=== PATIENT | male | born 1950 | race Caucasian/White ===

== ENCOUNTER 2016-06-07 19:08 | Emergency (ER) | payer OTHER, MEDICARE ==
[~2016-06-07 19:08] MED LIST: ADVAIR DISKUS 21 DSK INH; ALBUTEROL0.09 MG/A1 INH; AMARYL 2 MG2 MG PO; AMBIEN (MONOGRAP5 MG; AMBIEN10 M1 PO; ATIVAN1 M1 PO; ATIVAN1 MG PO; CIPRO 500MG TA500 MG PO; ENDOCET 7.5-321 EACH PO; FLEXERIL 5MG TAB5 MG PO; FLOMAX(MONOGRA0.4 MG PO; FLUOXETINE HYDR20 MG PO; FOLIC ACID 1 MG PO; FOLIC ACID1 M1 PO; GLIPIZIDE5 MG PO; GLUCOPHAGE1000 MG; JANUVIA 100MG100 MG PO; JARDIANCE10 MG PO; LEVEMIR 10100 UNITS/ SC; LIDODERM 5% PAT1 PAT EXT; LISINOPRIL10 MG PO; LISINOPRIL20 M1 PO; LISINOPRIL20 MG PO; MAGNESIUM250 M1 PO; METFORMIN HCL1000 M1 PO; METFORMIN HCL500 MG PO; NOVOLOG100 U/ML SC; ONE DAILY MULT1 EAC2 PO; PRILOSEC 20MG C20 MG PO; PROAIR HFA0.09 MG/Ac INH; SYMBICORT 80/4.1 PUF INH; Theragran Vitamins PO; VITAB121000 PO; VITAMIN B-1100 MG PO; VITAMIN B1100 MG PO; VITAMIN D1000 IU PO; ZOLPIDEM TART10 MG PO
--- NOTE | 2016-06-07 19:45 | ED MVC/FALL/TRAUMA COMPLAINT ---
History of Present Illness General Chief Complaint: Fall Stated Complaint: BIBA WITH A FALL, Source: patient, old records Exam Limitations: dementia Vital Signs & Intake/Output Vital Signs & Intake/Output Vital Signs Date Time Temp Pulse Resp B/P Pulse O2 O2 Flow FiO2 Ox Delivery Rate 06/08 0604 98.2 97 18 145/85 97 Room Air 06/07 2202 97.6 82 18 118/67 100 Room Air Room Air 06/07 1931 97.6 88 18 126/72 100 Room Air Room Air Allergies Coded Allergies: NO KNOWN ALLERGIES (10/30/15) Reconcile Medications Albuterol Sulfate (Proair Hfa) 0.09 MG/Actuation MEHUL 2 PUFF INH PRN ASTHMA ( Reported) FLUTICASONE/SALMETEROL (Advair 250-50 Diskus) 1 DSK DSK 2 PUFF INH QAM ASTHMA (Reported) Folic Acid 1 MG TABLET 1 TAB PO DAILY MULTIVITAMIN Insulin Aspart, Recombinant (Novolog) 100 U/ML KAREN 0 UNITS SC TIDAC/HS DIABETES BEFORE MEALS <80 MG/DL NO UNITS 80-100 MG/DL 5 UNITS 101-120 MG/DL 5 UNITS 121-150 MG/DL 5 UNITS 151-200 MG/DL 6 UNITS 201-250 MG/DL 7 UNITS 251-300 MG/DL 8 UNITS 301-350 MG/DL 10 UNITS 351-400 MG/DL 12 UNITS >400 MG/DL 14 UNITS AND CALL MD BED TIME SLIDING SCALE 251-300 MG/DL 1 UNIT 301-350 MG/DL 2 UNITS 351-400 MG/DL 3 UNITS >400 MG/DL 4 UNITS Insulin Detemir (Levemir) 100 UNITS/ML KAREN 14 UNITS SC AT BEDTIME DIABETES Lisinopril 20 MG TABLET 1 TAB PO DAILY BP (Reported) Lorazepam (Ativan) 1 MG TABLET 1 TAB PO BID ANXIETY (Reported) Multivitamin (One Daily Multivitamin) 1 EACH TABLET 1 TAB PO DAILY MULTIVITAMIN Thiamine HCl (Vitamin B-1) 100 MG TABLET 1 TAB PO DAILY MULTIVITAMIN Zolpidem Tartrate (Ambien) 10 MG TABLET 1 TAB PO QPMP Sleep (Reported) Triage Note: 66 YEAR OLD MALE BIBA S/P FALL. PER EMS FALL WAS UNWITNESSED, PT WAS FOUND IN SHOWER BY ANOTHER RESIDENT. AT TIME PT WAS FOUND PT WAS ALERT BUT TOO WEAK TO GET UP. PT ADMITS TO 2 SHOTS OF ?COORS. HEMATOMA WITH DRIED BLOOD NOTED TO BACK OF HEAD. PT SLOW TO REPSOND TO QUESTIONS AND ALSO REPORTS HE HAS EARLY DEMENTIA. Triage Nurses Notes Reviewed? yes HPI: 66-YEAR-OLD MALE BROUGHT IN BY AMBULANCE FROM LOCAL [facility] where he resides. He has history of dementia and alcohol abuse and was found the bathroom on the floor after falling and striking his head. He is unsure whether he had loss of consciousness and unsure why he fell. He admits to drinking several beers today. He has mild pain to the posterior aspect of the scalp where he has a laceration and small amount of dried blood to the area. He has no other complaints of pain or injury, denies any chest pain or shortness of breath, he denies any palpitations or dizziness or feeling lightheaded. There is no treatment thus far no modifying factors. (DOMINIQUE BLANCO) Past History Travel History Traveled to [place] past 21 day No Medical History Any Pertinent Medical History? see below for history Neurological: ALCOHOL WITHDRAWAL SEIZUR EENT: NONE Cardiovascular: hypertension Respiratory: asthma Gastrointestinal: pancreatitis Hepatic: NONE Renal: NONE Musculoskeletal: NONE Psychiatric: alcohol dependence, anxiety, depression Endocrine: DM Blood Disorders: NONE Cancer(s): NONE DEVELOPMENT PLANNER/Reproductive: NONE History of MRSA: No History of VRE: No History of CDIFF: No Tetanus Vaccine: 02/04/05 Surgical History Surgical History: Tonsillectomy Psychosocial History Who do you live with Other (see notes) Services at Home None What is your primary language Persian Tobacco Use: Refused to answer Family History Family History, If Any: FATHER, , Age 60+; Cause: Myocardial infarct. FH: diabetes mellitus BROTHER FH: CAD (coronary artery disease) Hx Contributory? No (DOMINIQUE BLANCO) Review of Systems Review of Systems Constitutional: Reports: see HPI. Eyes: Reports: no symptoms. Ears, Nose, Throat, Mouth: Reports: no symptoms. Respiratory: Reports: no symptoms. Cardiovascular: Reports: no symptoms. Gastrointestinal/Abdominal: Reports: no symptoms. Genitourinary: Reports: no symptoms. Musculoskeletal: Reports: no symptoms. Skin: Reports: no symptoms. Neurological/Psychological: Reports: see HPI. All Other Systems: Reviewed and Negative (DOMINIQUE BLANCO) Physical Exam Physical Exam General Appearance: well developed/nourished, appears intoxicated, slurring words Comments: Well-developed well-nourished person in no acute distress HEENT: Small hematoma noted to the posterior scalp, 2.5 cm superficial laceration noted to the posterior scalp, transverse, no active bleeding, small amount of dry blood noted in the area. Mild tenderness. Normal EENT exam, extraocular motion intact, no nystagmus. Pupils equally round and reactive to light. Nose is atraumatic. External auditory canal and Tympanic membranes clear. Pharynx normal. No swelling or edema. Neck: Supple, no lymphadenopathy, normal range of motion without pain or tenderness Back: Nontender, no CVA tenderness. Full range of motion Cardiovascular: Regular rate and rhythms no murmurs, normal JVP Respiratory: Chest nontender. No respiratory distress. Breath sounds clear to auscultation bilaterally Abdomen: Soft, nontender nondistended, no appreciable organomegaly. Normal bowel sounds. No ascites Extremity: No edema, no calf tenderness to palpation, normal and equal pulses. Neuro: Alert oriented x3, motor sensory normal, cranial nerves II through XII grossly intact. Skin: No appreciable rash on exposed skin, skin is warm and dry. Psych: Mood and affect is normal, memory and judgment is normal. Core Measures ACS in differential dx? No Severe Sepsis Present: No Septic Shock Present: No (JOE MALIN,DOMINIQUE) Progress Differential Diagnosis: aoritic dissection, abd injury, C/T/L spine injury, ext injury, ICH, pelvis injury, pnemothorax, spinal cord injury Plan of Care: Orders Procedure Date/time Status Telemetry/Military Personnel Specialist 06/07 1937 Active MAGNESIUM 06/07 1937 Complete ETHANOL 06/07 1937 Complete COMPREHENSIVE METABOLIC PANEL 06/07 1937 Complete CBC WITHOUT DIFFERENTIAL 06/07 1937 Complete EKG 06/07 1937 Active Laboratory Tests 06/07/16 2017: Anion Gap 17 H, Estimated GFR 36 L, BUN/Creatinine Ratio 8.4, Glucose 82, Calcium 9.1, Magnesium 1.9, Total Bilirubin 0.7, AST 29, ALT 35, Alkaline Phosphatase 46, Total Protein 7.1, Albumin 4.1, Globulin 3.0, Albumin/Globulin Ratio 1.4, CBC w Diff NO MAN DIFF REQ, RBC 4.17 L, MCV 98.6 H, MCH 33.4 H, RDW 14.7 H, MPV 7.1 L, Gran % 66.9, Lymphocytes % 20.5, Monocytes % 9.8 H, Eosinophils % 2.3, Basophils % 0.5, Absolute Granulocytes 4.4, Absolute Lymphocytes 1.4, Absolute Monocytes 0.6, Absolute Eosinophils 0.1, Absolute Basophils 0, PUBS MCHC 33.9, Serum Alcohol 317.0 Diagnostic Imaging: Viewed by Me: CT Scan. Discussed w/RAD: CT Scan. Radiology Impression: PATIENT: LEVI ULLOA PRESENT AGE : 66 PATIENT ACCOUNT NO: [id number] : 50 LOCATION: [facility] ORDERING PHYSICIAN: DOMINIQUE MALIN SERVICE DATE: 06/07/16 EXAM TYPE: CAT - CT HEAD WO IV CONTRAST EXAMINATION: CT HEAD WITHOUT CONTRAST CLINICAL INFORMATION: Fall. Head injury. COMPARISON: Head CT from 10/30/2015. TECHNIQUE: Contiguous axial imaging was performed from the skull base to vertex without intravenous administration of contrast. DLP: 601 mGy-cm. FINDINGS: There is no evidence of acute intracranial hemorrhage or territorial infarction. No abnormal mass effect or midline shift is seen. Sánchez to white matter differentiation is well preserved. No extra-axial fluid collections are identified. There is mild generalized prominence of the ventricles, sulci, and extra-axial spaces and mild hypoattenuation in the bihemispheric white matter. There is stable encephalomalacia in the anterior temporal lobe on the left. No fracture or acute osseous abnormality. The imaged paranasal sinuses are clear. The mastoid air cells and middle ear cavities are clear. The temporomandibular joints articulate normally. There is mild soft tissue thickening in the left frontal scalp near the vertex. The orbits are unremarkable. IMPRESSION: No acute intracranial pathology. DICTATED BY: THAI RUIZ MD DATE/TIME DICTATED:06/07/162043 MEAT SPECIALIST:CONTRERAS DATE/TIME TRANSCRIBED:06/07/162043 Initial ED EKG: NSR, rate (90), no ST T wave changes Prior EKG: unchanged Rhythm Strip: normal sinus rhythm Hand-Off Endorsed To: CHELSEY ERWIN MD Endorsed Time: 2300 Pending: other (sober) Comments: Posterior scalp laceration repair, wound was cleansed and irrigated, 3 karen were applied to the transverse laceration of the posterior scalp. Patient tolerated well without complications. Bacitracin was applied. Patient's head CT is negative, he is intoxicated with alcohol level of 317. He lives at the and does not have anyone to care for him, he will need to be monitored here overnight until he is sober in the morning. He is an unsafe discharge (DOMINIQUE BLANCO) Comments: 06/07/2016 10:49:38 PM Patient signed out to me by PA at shift exchange operator. 06/08/2016 6:27:30 AM patient's speech is clear and his gait is stable. (YAIMA FARIA,CHELSEY Hinds) Departure Departure Disposition: HOME OR SELF CARE Condition: Stable Clinical Impression Primary Impression: Alcohol intoxication Qualifiers: Complication of substance-induced condition: uncomplicated Qualified Code: F10.120 - Alcohol abuse with intoxication, uncomplicated Secondary Impressions: Fall Qualifiers: Encounter type: initial encounter Qualified Code: W19.XXXA - Unspecified fall, initial encounter Laceration of scalp Qualifiers: Encounter type: initial encounter Qualified Code: S01.01XA - Laceration without foreign body of scalp, initial encounter Referrals: NURY CARREON (PCP/Family) Additional Instructions: Return to the ER in 7 days for staple removal. Departure Forms: Customer Survey General Discharge Information (DOMINIQUE BLANCO) PA/HOSE STRIPPER Co-Sign Statement Statement: ED Attending supervision documentation- [x] I saw and evaluated the patient. I have also reviewed all the pertinent lab results and diagnostic results. I agree with the findings and the plan of care as documented in the PA's/HOSE STRIPPER's documentation. [] I have reviewed the ED Record and agree with the PA's/HOSE STRIPPER's documentation. [] Additions or exceptions (if any) to the PAs/HOSE STRIPPER's note and plan are summarized below: [] (YAIMA FARIA,CHELSEY Hinds)
[2016-06-07 20:26] LABS: ABSOLUTE BASOPHIL COUNT 0 /CUMM (0.0-0.2); ABSOLUTE EOSINOPHIL COUNT 0.1 /CUMM (0.0-0.7); ABSOLUTE GRANULOCYTE CT 4.4 /CUMM (1.4-6.5); ABSOLUTE LYMPH COUNT 1.4 /CUMM (1.2-3.4); ABSOLUTE MONOCYTE COUNT 0.6 /CUMM (0.10-0.60); BASOPHIL % 0.5 % (0.0-2.0); EOSINOPHIL % 2.3 % (0-5); GRANULOCYTE % 66.9 % (42.2-75.2); HEMATOCRIT 41.1 % (42-52); MEAN CORPUSCULAR HGB 33.4 PG (27.0-31.0); MEAN CORPUSCULAR HGB CONC 33.9 G/DL (33.0-37.0); MEAN CORPUSCULAR VOLUME 98.6 FL (80.0-94.0); MEAN PLATELET VOLUME 7.1 FL (7.4-10.4); PLATELET COUNT 273 /CUMM (130-400); RBC DISTRIBUTION WIDTH 14.7 % (11.5-14.5); RED BLOOD CELL CT 4.17 /CUMM (4.70-6.10); WHITE BLOOD CELL COUNT 6.6 /CUMM (4.8-10.8)
--- NOTE | 2016-06-07 20:51 | CT SCAN REPORT ---
EXAMINATION: CT HEAD WITHOUT CONTRAST CLINICAL INFORMATION: Fall. Head injury. COMPARISON: Head CT from 10/30/2015. TECHNIQUE: Contiguous axial imaging was performed from the skull base to vertex without intravenous administration of contrast. DLP: 601 mGy-cm. FINDINGS: There is no evidence of acute intracranial hemorrhage or territorial infarction. No abnormal mass effect or midline shift is seen. Sánchez to white matter differentiation is well preserved. No extra-axial fluid collections are identified. There is mild generalized prominence of the ventricles, sulci, and extra-axial spaces and mild hypoattenuation in the bihemispheric white matter. There is stable encephalomalacia in the anterior temporal lobe on the left. No fracture or acute osseous abnormality. The imaged paranasal sinuses are clear. The mastoid air cells and middle ear cavities are clear. The temporomandibular joints articulate normally. There is mild soft tissue thickening in the left frontal scalp near the vertex. The orbits are unremarkable. IMPRESSION: No acute intracranial pathology.
[2016-06-08 06:04] VITALS: BP 145/85
== END 2016-06-08 06:37 ==
LOC: ERH 19:08
PROVIDERS: Physician Assistant Surgical
DX: S01.01XA Laceration without foreign body of scalp, initial encounter (principal); F10.129 Alcohol abuse with intoxication, unspecified; W19.XXXA Unspecified fall, initial encounter
CPT/HCPCS: 93005; 93010; 96372; G0480

== ENCOUNTER 2016-06-15 17:12 | Emergency (ER) | payer OTHER, MEDICARE ==
[~2016-06-15] VITALS: Ht 175.3 cm; Wt 77.1 kg
--- NOTE | 2016-06-15 17:55 | ED PSYCHIATRIC COMPLAINT ---
History of Present Illness General Chief Complaint: ETOH/Drug Related Complaint Stated Complaint: +ETOH, FOUND WALKING/VOMITING ON MAIN ST Source: patient, EMS Exam Limitations: intoxication Vital Signs & Intake/Output Vital Signs & Intake/Output Vital Signs Date Time Temp Pulse Resp B/P Pulse O2 O2 Flow FiO2 Ox Delivery Rate 06/15 1812 Room Air Room Air 06/15 1719 97.0 92 20 127/72 96 Room Air Allergies Coded Allergies: NO KNOWN ALLERGIES (06/15/16) Reconcile Medications Albuterol Sulfate (Proair Hfa) 0.09 MG/Actuation MEHUL 2 PUFF INH PRN ASTHMA ( Reported) FLUTICASONE/SALMETEROL (Advair 250-50 Diskus) 1 DSK DSK 2 PUFF INH QAM ASTHMA (Reported) Folic Acid 1 MG TABLET 1 TAB PO DAILY MULTIVITAMIN Insulin Aspart, Recombinant (Novolog) 100 U/ML KAREN 0 UNITS SC TIDAC/HS DIABETES BEFORE MEALS <80 MG/DL NO UNITS 80-100 MG/DL 5 UNITS 101-120 MG/DL 5 UNITS 121-150 MG/DL 5 UNITS 151-200 MG/DL 6 UNITS 201-250 MG/DL 7 UNITS 251-300 MG/DL 8 UNITS 301-350 MG/DL 10 UNITS 351-400 MG/DL 12 UNITS >400 MG/DL 14 UNITS AND CALL MD BED TIME SLIDING SCALE 251-300 MG/DL 1 UNIT 301-350 MG/DL 2 UNITS 351-400 MG/DL 3 UNITS >400 MG/DL 4 UNITS Insulin Detemir (Levemir) 100 UNITS/ML KAREN 14 UNITS SC AT BEDTIME DIABETES Lisinopril 20 MG TABLET 1 TAB PO DAILY BP (Reported) Lorazepam (Ativan) 1 MG TABLET 1 TAB PO BID ANXIETY (Reported) Multivitamin (One Daily Multivitamin) 1 EACH TABLET 1 TAB PO DAILY MULTIVITAMIN Thiamine HCl (Vitamin B-1) 100 MG TABLET 1 TAB PO DAILY MULTIVITAMIN Zolpidem Tartrate (Ambien) 10 MG TABLET 1 TAB PO QPMP Sleep (Reported) Triage Note: PT BIBA TO ER RM 14 C/C FOUND VOMITING ON MAIN [address] [place] WITH ETOH AND STAGGERING GAIT. PT ADMITS TO 1/2 PINT OF SCOTCH TODAY BUT DENIES BEING INTOXICATED, STATING "I'M NOT DRUNK". PT DENIES FEELING NAUSEAS AT PRESENT, DENIES ANY PAIN. DENIES SI/HI. PT CHANGED INTO HOSPITAL GOWN BY SECURITY AND SITTER STAFF. HAS 2 PERSONAL BELONGINGS BAGS PLACED IN BH CLOSET (SOME CLOTHING HAS VOMITUS), VALUABLES ENVELOPE X 1 AND PHARMACY BAG X 1 PLACED IN SAFE. Triage Nurses Notes Reviewed? yes Onset: Abrupt Duration: minute(s): (FEW) Timing: single episode today Severity: moderate HPI: 66 year old male with history of alcohol abuse presents via EMS after being found intoxicated and vomiting on the street. He reports he was drinking today, 6 beers adn a few shots. He states he does not know why he is here. No thoughts of harming himself of anyone else. He states he was just trying to get a haircut today. Past History Travel History Traveled to [place] past 21 day No Medical History Any Pertinent Medical History? see below for history Neurological: ALCOHOL WITHDRAWAL SEIZUR *06/15/16- PT DENIES HX OF ETOH W/ SEIZURES* EENT: NONE Cardiovascular: hypertension Respiratory: asthma Gastrointestinal: pancreatitis Hepatic: NONE Renal: NONE Musculoskeletal: NONE Psychiatric: alcohol dependence, anxiety, depression Endocrine: DM Blood Disorders: NONE Cancer(s): NONE PEDIATRIC DENTAL ASSISTANT/Reproductive: NONE History of MRSA: No History of VRE: No History of CDIFF: No Tetanus Vaccine: 02/04/05 Surgical History Surgical History: Tonsillectomy Psychosocial History Who do you live with Other (see notes) Services at Home None What is your primary language Sami Tobacco Use: Never used ETOH Use: alcoholic Illicit Drug Use: denies illicit drug use Family History Family History, If Any: FATHER, , Age 60+; Cause: Myocardial infarct. FH: diabetes mellitus BROTHER FH: CAD (coronary artery disease) Hx Contributory? No Review of Systems Review of Systems Constitutional: Denies: fever. EENTM: Reports: no symptoms. Respiratory: Denies: cough. Cardiovascular: Denies: chest pain. GI: Reports: nausea, vomiting. Denies: abdominal pain. Genitourinary: Reports: no symptoms. Musculoskeletal: Reports: no symptoms. Skin: Reports: no symptoms. Neurological/Psychological: Reports: no symptoms. Hematologic/Endocrine: Denies: bruising, bleeding. Immunologic/Allergic: Denies: splenectomy. All Other Systems: Reviewed and Negative Physical Exam Physical Exam General Appearance: well developed/nourished, mild distress Head: atraumatic Eyes: Bilateral: PERRL, EOMI. Ears, Nose, Throat: normal pharynx, normal ENT inspection, hearing grossly normal Neck: normal inspection, supple Respiratory: normal breath sounds Cardiovascular: regular rate/rhythm Gastrointestinal: soft, non-tender Extremities: normal range of motion Neurological/Psychiatric: no motor/sensory deficits, awake, alert, intoxicated Appearance/Memory/Insight: disheveled, impaired insight Behavoir/Eye Contact/Speech: cooperative, decreased rate of speech Thoughts/Hallucinations: no apparent hallucination Skin: intact, normal color, warm/dry SAD PERSONS Done? patient not suicidal Progress Differential Diagnosis: drug intoxication, ALCHOL INTOXICATION Plan of Care: Orders Procedure Date/time Status FingerStick- Glucose 06/15 1904 Active URINE DRUGS OF ABUSE 06/15 1802 Complete Laboratory Tests 06/15/16 1917: Urine Opiates Screen < 100.00, Methadone Screen < 40, Barbiturate Screen < 60, Ur Phencyclidine Scrn < 6.00, Amphetamines Screen < 100, U Benzodiazepines Scrn < 85, Urine Cocaine Screen < 50, Urine Cannabis Screen < 5.00 URINE TOXICOLOGY ORDERED, FINGERSTICK ORDERED. (LUZMARIA FARIA,MACK) Departure Departure Time of Disposition: 2014 Disposition: HOME OR SELF CARE Condition: Stable Clinical Impression Primary Impression: Alcohol intoxication Referrals: NURY CARREON (PCP/Family) Additional Instructions: FOLLOW-UP with the outpatient list of detox facilities. Departure Forms: Customer Survey General Discharge Information
[2016-06-15 20:35] VITALS: BP 154/97
== END 2016-06-15 20:37 ==
LOC: ERH 17:12
DX: F10.129 Alcohol abuse with intoxication, unspecified (principal); E11.9 Type 2 diabetes mellitus without complications; Z79.4 Long term (current) use of insulin
CPT/HCPCS: 80307

== ENCOUNTER 2017-07-13 06:28 | Inpatient (IN) | payer OTHER, MEDICARE ==
[2017-07-13] VITALS (7 sets, daily range): BP systolic 130–166; BP diastolic 74–100
[~2017-07-13] VITALS: Ht 175.3 cm; Wt 82.1 kg
[~2017-07-13 06:28] MED LIST changes: +ASPIRIN81 M4 PO; +ATIVAN0.5 M1 PO; +ATORVASTATIN CA80 M1 PO; +LEVEMIR FL100 UNIT/1 SC; +MELATONIN3 M4 PO; +MOBIC15 M1 PO; +NOVOLOG FL100 UNIT/1 SC; -PROAIR HFA0.09 MG/Ac INH; +PROAIR HFA8.5 GM INH; +VITAMIN B-121000 MC3 PO
[2017-07-13 07:11] LABS: ABSOLUTE BASOPHIL COUNT 0 /CUMM (0.0-0.2); ABSOLUTE EOSINOPHIL COUNT 0.2 /CUMM (0.0-0.7); ABSOLUTE GRANULOCYTE CT 3.3 /CUMM (1.4-6.5); ABSOLUTE LYMPH COUNT 1.1 /CUMM (1.2-3.4); ABSOLUTE MONOCYTE COUNT 0.7 /CUMM (0.10-0.60); BASOPHIL % 0.6 % (0.0-2.0); EOSINOPHIL % 4.2 % (0-5); GRANULOCYTE % 61.5 % (42.2-75.2); MEAN CORPUSCULAR HGB 31.4 PG (27.0-31.0); MEAN CORPUSCULAR VOLUME 92.5 FL (80.0-94.0); MEAN PLATELET VOLUME 8.4 FL (7.4-10.4); PLATELET COUNT 237 /CUMM (130-400); RBC DISTRIBUTION WIDTH 16.1 % (11.5-14.5); RED BLOOD CELL CT 3.68 /CUMM (4.70-6.10); WHITE BLOOD CELL COUNT 5.4 /CUMM (4.8-10.8)
--- NOTE | 2017-07-13 07:45 | ED AMS/SEIZURE/WEAK/DIZZY ---
History of Present Illness General Chief Complaint: Altered Mental Status Stated Complaint: BIBA, AMS Source: patient, old records Exam Limitations: no limitations, intoxication Vital Signs & Intake/Output Vital Signs & Intake/Output Vital Signs Date Time Temp Pulse Resp B/P B/P Pulse O2 O2 Flow FiO2 Mean Ox Delivery Rate 07/15 0630 98.0 85 20 142/82 94 07/14 2208 98.5 101 18 140/80 96 Room Air 07/14 1438 97.8 100 20 150/75 95 Room Air ED Intake and Output 07/15 0000 07/14 1200 Intake Total 2270 390 Output Total 1250 350 Balance 1020 40 Intake, IV 100 150 Intake, Oral 2170 240 Number 0 Bowel Movements Output, Urine 1250 350 Allergies Coded Allergies: NO KNOWN ALLERGIES (06/15/16) Triage Note: TRIAGE: BIBA FROM [facility] IN [place], DETOXED FROM ETOH (W/ HX SEIZURES) 9 WEEKS AGO, THOUGH DENIES CURRENT OR RECENT ETOH USE, FOUND SITTING ON STEPS W/ NO PANTS ON AND INTERMITTENT CONFUSION. PER EMS, PATIENT "DIDN'T KNOW HOW HE GOT TO THE STAIRS AND WHERE HIS PANTS WENT." PATIENT ALERT AND ORIENTED AT THIS TIME THOUGH ASKS SAME QUESTIONS REPEATADLY. PATIENT UNSURE WHY HE IS HERE. DENIES COMPLAINTS. Triage Nurses Notes Reviewed? yes Unable To Obtain Hx Due To: patient confusion Onset: Evening Duration: hour(s): HPI: 67yoM w/ hx of HTN, asthma, alcohol abuse and intoxication w/ frequent visits to the ER here w/ another episode of alcohol intoxication. Patient was found on the steps of the [facility], where he resides, with his pants down and altered and was sent here to the ED for evaluation. Patient has no recollection of the incident. He reports sleeping in the comfort of his room and was picked up by the EMT with the goal of having some blood tests done. Denies any EtOH in the past 10mths. He also denies any recreational drug use. He was just discharged from alcohol detox 9mths ago. He has history of alcohol withdrawal seizures. Unclear if he has DTs. 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 (Opare-Gail STUDENT,Eric) Reconcile Medications Albuterol Sulfate (Proair Hfa) 90 MCG HFA.AER.AD 2 PUF INH Q4-6 PRN PRN wheezing Colchicine 0.6 MG TABLET 1 TAB PO DAILY GOUT (Reported) Docusate Sodium (Colace) 100 MG CAPSULE 1 CAP PO BID CONSTIPATION (Reported) Insulin Aspart, Recombinant (Novolog Flexpen) 100 UNIT/ML INSULN.PEN 5 UNITS SC TIDAC DIABETES (Reported) Insulin Detemir (Levemir Flextouch) 100 UNIT/ML (3 ML) INSULN.PEN 14 UNIT SC QPM DIABETES (Reported) LORazepam (Ativan) 1 MG TAB 1 TAB PO BID anxiety (Reported) Sennosides (Senna) 8.6 MG TABLET 2 TAB PO DAILY PRN CONSTIPATION (Reported) Trazodone HCl 100 MG TABLET 1 TAB PO QPM SLEEP (Reported) Zolpidem Tartrate (Ambien) 10 MG TABLET 1 TAB PO QPMP sleep (Reported) (Charisma FARAI,Emory Sutton) Past History Travel History Traveled to [place] past 21 day No Medical History Any Pertinent Medical History? 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 FH: diabetes mellitus BROTHER FH: CAD (coronary artery disease) Hx Contributory? No (Opare-Gail STUDENT,Eric) Review of Systems Review of Systems Constitutional: Reports: no symptoms, see HPI. EENTM: Reports: no symptoms. Denies: double vision, eye pain, ear discharge, hearing changes. Respiratory: Denies: cough, wheezing. Cardiovascular: Denies: chest pain, edema, orthopena, syncope. GI: Denies: constipation, diarrhea. Genitourinary: Reports: no symptoms. Musculoskeletal: Denies: back pain. Skin: Reports: lesions (ecchymosis). Neurological/Psychological: Denies: anxiety, confusion, emotional problems. Hematologic/Endocrine: Reports: no symptoms. (Opare-Gail STUDENT,Eric) Physical Exam Physical Exam General Appearance: well developed/nourished, awake, comfortable Head: atraumatic Eyes: Bilateral: PERRL. Neck: normal inspection, supple Respiratory: normal breath sounds Cardiovascular: regular rate/rhythm Peripheral Pulses: 3+ radial (R), 3+ radial (L) Gastrointestinal: normal bowel sounds Rectal: deferred Extremities: normal range of motion Neurologic/Psych: awake, oriented x 3 (not aware he was in hospital) Bay Coma Score Bay Coma Score Response Value Best Eye Response (Bay): open spontaneously 4 Best Verbal Response: oriented 5 Best Motor Response: obeys commands 6 Total 15 Core Measures ACS in differential dx? No CVA/TIA Diagnosis No Sepsis Present: No Sepsis Focused Exam Completed? No (Opare-Gail STUDENT,Eric) Progress Differential Diagnosis: alcohol intoxication, CVA/stroke, dehydration, drug intoxication, seizure disorder Plan of Care: Orders Procedure Date/time Status BASIC ELECTROLYTES PLUS BUN&CR 07/15 0600 Complete Current Medications Sig/Michael Start time Last Medication Dose Stop Time Status Admin Colchicine 600 MCG DAILY 07/15 1000 AC 07/15 (Colchicine 600MCG 1005 Tab) Folic Acid 1 MG DAILY 07/15 1000 AC (Folic Acid) Trazodone HCl 100 MG QPM 07/14 2200 AC 07/14 (Desyrel) 2121 Thiamine HCl 250 MG DAILY 07/14 1000 AC 07/14 (Vitamin B-1) 07/18 1029 1035 Sodium Chloride 100 ML (Normal Saline 0.9%) Insulin Aspart 0 TIDAC 07/14 0800 AC 07/15 (NovoLOG) 0824 Heparin Sodium 5,000 UNIT Q8 07/13 2200 AC 07/15 (Porcine) 0521 Insulin Detemir 7 UNITS 2200 07/13 2200 AC 07/14 (Levemir) 2123 Melatonin 5 MG AT BEDTIME 07/13 2200 AC 07/14 (Melatonin) 2121 Calcium Carbonate 500 MG DAILY 07/14 2051 AC 07/15 (TUMS) 1006 Albuterol Sulfate 2 PUF Q4 PRN 03/1944 AC 07/15 (Ventolin) 0520 Acetaminophen 650 MG Q6P PRN 07/13 1929 AC 07/15 (Tylenol) 1007 Acetaminophen 1,000 MG Q6P PRN 07/13 1929 AC (Ofirmev) Morphine Sulfate 1 MG Q4P PRN 07/13 1929 AC (MORPHINE SULFATE) Laboratory Tests 07/15/17 0635: Anion Gap 12, Estimated GFR 43 L, BUN/Creatinine Ratio 15.6 Patient without any complaints currently. Cr elevation is chronic at his baseline. EtOH level of 83. However, he is no following directions or showing any recollection of events. It will not be safe to discharge him at this point. Will get case management involved in his disposition. Initial ED EKG: none (Eric Mercado) Comments: 07/13/2017 8:00:55 AM patient's evaluation reveals low-grade intoxication, he shows poor insight into his current emergency department visit. In addition shows poor recall of recent events and his answers to questions often confusing and somewhat tangential. I do not feel this patient is safe for discharge at this time. He appears to have no means back to the [facility]. I have ordered a case management consultation for disposition. 07/13/2017 12:20:18 PM patient has been evaluated for competence. At this point the patient seems incompetent to make medical decisions and the care clinician has recommended additional testing and high dose vitamin therapy. Patient will continue to be observed here in the emergency department given that the patient' s has indicated to the care clinician and he seemed well yesterday. (Charisma FARIA,Emory Sutton) Departure Departure Condition: Stable Referrals: Abdirashid Garay DC (PCP/Family) Departure Forms: Customer Survey General Discharge Information (Eric Mercado) Departure Disposition: STILL A PATIENT Clinical Impression Primary Impression: Altered mental status Qualifiers: Altered mental status type: unspecified Qualified Code: R41.82 - Altered mental status, unspecified Secondary Impressions: Alcohol use, Renal insufficiency Admission Note Spoke With: Chani Hoskins MD Documentation of Exam: Documentation of any treatments & extenuating circumstances including Concerns Regarding Discharge (functional status, medication knowledge or non-compliance, living conditions, etc.) that warrant an admission rather than observation: Patient presents for evaluation of wandering scantily clothed. The patient himself has virtually no recall of the incident. He likewise shows very poor insight into his current living situation and medical condition. He lacks capacity for medical decision making. I feel it is highly unsafe for the patient to return to his current residence at the [facility]. 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 We are initiating high dose vitamin therapy and exploring reversible causes of dementia. In addition given the patient's history of alcohol use he will be monitored with serial CIWA scores for alcohol withdrawal. Patient's current medications will require review and modification (if possible benzodiazepines and Ambien will be discontinued. The patient will also require neuro checks, neurology consultation, psychiatric consultation and case management/discharge planning consultations. Patient's Lyme titer should be followed and treated accordingly. I feel this patient will require a multiple day hospitalization. (Charisma FARIA,Emory Sutton)
--- NOTE | 2017-07-13 10:51 | Cons- Psychiatry ---
Psychiatric Consult Date of Consult: 07/13/17 Reason for Consult: "Capacity for medical decision making?" History of Present Illness: "I got dragged out of my bed sleeping." 67 y.o., , domiciled, male was BIBA from near his room at the [facility] on 07/13/17 @ 0628 with a CC of confusion. He was found by a neighbor at the stairway in his building without his pants on and intermittently confused. The patient was last seen here on 05/28/17 found wandering in the halls at the [facility] without clothes on. He was found to have a T7 fracture and was sent to [facility] that day. He has a long history of alcohol use disorder, and is currently minimizing his use. He also has a history of falls. He believes he was discharged from [facility] or a physical rehab yesterday. Collateral: The patient's ex-, Bharati Lin, , returned my call and reports that his brother José Miguel, , picked him up at the physical rehab yesterday and brought him to the [facility], where she picked him up to do errands, finishing at about 5PM when she brought him back to the [facility]. He had gone to the rehab after treatment for a T7 Fx at [facility] last 06/07/17, and had been having PT at the rehab. He had not had a drink on about 5 weeks. She received a text from the patient's friend, who watches over him at the [facility] at 8PM, and reported he was fine. She is surprised that he is in the ED. She does nto know if she has concerns about him being discharged. PMH includes diabetes on Levemir pen at night and Aspart pen pre-meal X 3. Labs reviewed. Serum alcohol 87.0; utox negative. UA shows trace of protein, few bacteria, rare granular casts. Sodium, potassium, magnesium calcium all WNL. AST 15L/ALT 21N; AP 41N, ammonia 20N. Anion gap 17H. BUN 31H/Cr 2.0H. Lyme titer, RPR/VDRL, Thyroid FT, B-12, pending. CT Head on 05/28/17: FINDINGS: There is no evidence of acute intracranial hemorrhage or territorial infarction. No abnormal mass effect or midline shift is seen. Sánchez to white matter differentiation is well preserved. No extra-axial fluid collections are identified. The ventricles and sulci are commensurate and age-appropriate in size. There is mild patchy low attenuation change in the periventricular white matter spaces. There is stable chronic encephalomalacia within the anterior left temporal lobe. There are atherosclerotic calcifications of the skull base vasculature. The osseous structures and soft tissues are normal. The visualized portions of the paranasal sinuses are clear. There is opacification of several of the right mastoid air cells. IMPRESSION: 1. No acute intracranial finding. There is no significant interim change. 2. There is mild patchy low attenuation change in the periventricular white matter spaces, commonly associated with chronic microangiopathy. 3. There is stable anterior left temporal encephalomalacia. 4. There is mild right mastoiditis. 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 Psychiatric Treatment History Psych Treatment Psychiatric Treatment Yes (Had trials on three SSRIs) Inpatient Treatment No (Unknown) Outpatient Treatment Yes Location of Treatment Unknown, but probably PCP; no current psychotropic meds ; pt is poor report Reason for Treatment Depression, anxiety, alcohol use d/o Dates of Treatment Unknown Response to Treatment Unknown Diagnosis: Is prescribed ativan for his anxiety, ambien for insomnia. 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 How much used/taken REports 3 beers daily Substance Abuse Treatment Substance Abuse Treatment Past Substance Abuse [place] Yes Inpatient Treatment Yes Outpatient Treatment No (Unknown if he followed up) Location of Treatment Inpt: [facility] 1996; sober 13 years by report Reason for Treatment ETOH Dates of Treatment see above Response to Treatment Achieved sobriety Assessment/Plan Mental Status Orientation: Confused Affect: Constricted Speech: Pressured Neuro-vegetative: Concentration Poor Mental Status Exam: Alert, calm, cooperative, oriented to person, place, day, town, state, President , but off by one month and date. He does not remember losing his pants, or the circumstances of being found near the stairs. He cannot remember the circumstances of his fall leading to hospitalization in May, with a back fracture. Folstein/MMSE score today is 23/30, suggestive of mild cognitive impairment. Deficits in orientation, one error in subtraction, unable to recall 3 objects. He reports 8 hours restful sleep. He denies AH or VH, but is confused about how to take his insulin ("I take Levemir before each meal") He reports his appetite is great He admits he drank yesterday, but states that he only had a slip to see if he liked it. He reports drinking 1-2 beers daily. He denies street drug use. Mood is "great." Affect is contricted. He confuses the events at [facility] and [place], and denies a history of psychiatric treatment and alcohol rehab. He denies using Prozac or Zoloft, recorded at an earlier admission, but reports that he had taken Paxil. Question: Is it safe for someone to discharge to home if he becomes confused and has a history of falls? The patient is able to understand the situation, and see how it might be dangerous. He is not able to apply it to himself, but states that "I have help now, my friend across the [place]." He is able to express a choice. His reasoning is faulty, in that when asked about a possible safer, alternate living situation , he states, "I could do golf, if I could afford it." Asked the same question, he states, "If I had a girl, I would do things for you." He also recalled a wonderful marriage that "went awry at the end." Lab Results: Laboratory Tests 07/13 07/13 0815 0740 Toxicology Urine Opiates Screen (>2000 NG/ML) < 100 Methadone Screen (>300 NG/ML) Cancelled < 40 Barbiturate Screen (>200 NG/ML) Cancelled < 60 Ur Phencyclidine Scrn (>25 NG/ML) Cancelled < 6.00 Amphetamines Screen (>1000 NG/ML) Cancelled < 100 U Benzodiazepines Scrn (>200 NG/ML) Cancelled < 85 Urine Cocaine Screen (>300 NG/ML) Cancelled < 50 Urine Cannabis Screen (>50 NG/ML) Cancelled < 5.00 Urines Urine Color (YEL,AMB,STR) YEL Urine Clarity (CLEAR) CLEAR Urine pH (5.0 - 8.0) 6.0 Ur Specific [place] (1.001 - 1.035) 1.010 Urine Protein (NEG,<30 MG/DL) TRACE H Urine Ketones (NEG) NEG Urine Nitrite (NEG) NEG Urine Bilirubin (NEG) NEG Urine Urobilinogen (0.1 - 1.0 EU/dl) 0.2 Ur Leukocyte Esterase (NEG) NEG Ur Microscopic SEDIMENT EXAMINED Urine WBC (0 - 2 /HPF) RARE Ur Epithelial Cells (NONE,FEW) RARE Urine Bacteria (NEG/NONE) FEW H Granular Casts (NONE /LPF) RARE H Urine Hemoglobin (NEG) NEG Urine Glucose (N MG/DL) NEG 07/13 07/13 0641 0636 Chemistry Sodium (137 - 145 mmol/L) 143 Potassium (3.5 - 5.1 mmol/L) 4.7 Chloride (98 - 107 mmol/L) 102 Carbon Dioxide (22 - 30 mmol/L) 24 Anion Gap (5 - 16) 17 H BUN (9 - 20 mg/dL) 31 H Creatinine (0.7 - 1.2 mg/dL) 2.0 H Estimated GFR (>60 ml/min) 33 L BUN/Creatinine Ratio (7 - 25 %) 15.5 Glucose (65 - 99 mg/dL) 188 H Calcium (8.4 - 10.2 mg/dL) 9.9 Magnesium (1.6 - 2.3 mg/dL) 1.8 Total Bilirubin (0.2 - 1.3 mg/dL) 0.5 AST (17 - 59 U/L) 15 L ALT (21 - 72 U/L) 21 Alkaline Phosphatase (< 127 U/L) 41 Ammonia (9 - 30 umol/L) 20 Total Protein (6.3 - 8.2 g/dL) 6.8 Albumin (3.5 - 5.0 g/dL) 4.2 Globulin (1.9 - 4.2 gm/dL) 2.6 Albumin/Globulin Ratio (1.1 - 2.2 %) 1.6 Vitamin B12 (239 - 931 pg/mL) Pending Folate (2.76 - 20.0 ng/mL) Pending Free T4 (0.78 - 2.44 ng/dL) 1.19 Total T3 (0.97 - 1.69 ng/mL) Pending TSH &T3 &Free T4 Intrp (0.27 - 4.20 uIU/mL) 1.410 Hematology CBC w Diff NO MAN DIFF REQ WBC (4.8 - 10.8 /CUMM) 5.4 RBC (4.70 - 6.10 /CUMM) 3.68 L Hgb (14.0 - 18.0 G/DL) 11.6 L Hct (42 - 52 %) 34.0 L MCV (80.0 - 94.0 FL) 92.5 MCH (27.0 - 31.0 PG) 31.4 H MCHC (33.0 - 37.0 G/DL) 34.0 RDW (11.5 - 14.5 %) 16.1 H Plt Count (130 - 400 /CUMM) 237 MPV (7.4 - 10.4 FL) 8.4 Gran % (42.2 - 75.2 %) 61.5 Lymphocytes % (20.5 - 51.1 %) 20.7 Monocytes % (1.7 - 9.3 %) 13.0 H Eosinophils % (0 - 5 %) 4.2 Basophils % (0.0 - 2.0 %) 0.6 Absolute Granulocytes (1.4 - 6.5 /CUMM) 3.3 Absolute Lymphocytes (1.2 - 3.4 /CUMM) 1.1 L Absolute Monocytes (0.10 - 0.60 /CUMM) 0.7 H Absolute Eosinophils (0.0 - 0.7 /CUMM) 0.2 Absolute Basophils (0.0 - 0.2 /CUMM) 0 Serology RPR Titer/FTA Pending Lyme Disease Antibody Pending Toxicology Serum Alcohol (<10 MG/DL) 87.0 Diffential Diagnosis: Delirium due to another medical condition vs. alcoholic delirium vs. dementia vs. Korsakoffs syndrome. Depression R/O bipolar d/o, from an earlier consult. Impression: The patient is not safe to reeturn home unsupervised at this time. He is confusing his diabetic insulin regiment and uses color codes on the pens. He is forgetful, and we are concerned that he might take his Levemir before each meal, as he stated today. He also has a history of falls, the last in May 2017 resulting in a T7 fracture. He is not aware of how he fell. He lives in a 3rd floor room without an elevator. He also hinted at possible sleep disturbance with Ambien, but cannot recall actually sleepwalking. He also takes lorazepam for anxiety. Provisional Treatment Plan: 1. The patient should not be allowed to leave the hospital, AMA or otherwise, until he shows his mentation to be cleared, whichhis sister reports was adequate yesterday. 2. Please start high dose thiamine (Usually 500 mg Im or Iv 2-3X/day for 2-3 days; then 250 mg with the same dosing regimen, but can continue as long as the patient shows improvement.) 3. Complete reversible dementia workup, as discussed with Dr. Zafar. 4. Please start CIWA monitoring. 5. If the patient shows S/S alcohol withdrawal, please start ETOH Detox protocol. 6. We recommend stopping any home benzodiazepines as well as Ambien, both can contribute to risk for fall. 7. Folate 1 mg PO daily 8. Multivitamin daily. 9. Consider an alternate living arrangement, which might provide a safer environment. 10. The patient needs to avoid alcohol or other intoxicants. Refer to substance abuse treatment program. His ex- reports she can provide rides for the patient. Psychiatry signing off. Please reconsult if other psychiatric matters arise. Thank you for this consult.
--- NOTE | 2017-07-13 17:13 | History & Physical ---
Greg Castaneda MD,[facility] 07/13/17 1712: General Information and HPI MD Statement: I have seen and personally examined LEVI ULLOA and documented this H&P. The patient is a 67 year old M who presented with a patient stated chief complaint of [NO COMPLAINT]. Source of Information: patient, old records Exam Limitations: no limitations, PATIENT COULD BE KORSAKOF History of Present Illness: The patient is 66-year-old M with PMH of alcohol dependence, alcohol withdrawal seizures, DM II on insuline, hypertension, pancreatitis, CKD, anxiety, asthma and insomnia was BIBA from [facility] to ED or evaluation of AMS. Patient was alert and orieted at the time of interview, family were contacted but were not awailable for interview, yet physchology were able to intervie them and medical records were used to complete this history. Briefly patient was found a neighbor with no pants in stair of his building while was confused and transferred to ED. Yet, patient noted that he was dragged out of bed when sleeping to have some blood work done. Accroding to the medical records, patient was discharged 9 months ago from alcohol detox. Patient was seen in 05/28/17 wandering without cloths in [facility] and was sent to [facility] for evaluation of T7 fracture. After [facility] admission he was discharged to physical rehab he was discharged yesterday (patient noted he was admitted to [facility] for DM control). Patient denied any fever or chills, nausea vomiting or recent seizures. Allergies/Medications Allergies: Coded Allergies: NO KNOWN ALLERGIES (06/15/16) Past History Travel History Traveled to [place] past 21 day No Medical History Neurological: ALCOHOL WITHDRAWAL SEIZUR *06/15/16- PT DENIES HX OF ETOH W/ SEIZURES* Cardiovascular: hypertension Respiratory: asthma Gastrointestinal: pancreatitis Hepatic: NONE Renal: NONE Musculoskeletal: NONE Psychiatric: alcohol dependence, anxiety, depression, insomnia Endocrine: DM Blood Disorders: NONE Cancer(s): NONE REGISTERED PHYSICAL THERAPIST/Reproductive: NONE History of MRSA: No History of VRE: No History of CDIFF: No Isolation History: Standard Tetanus Vaccine: 02/04/05 Surgical History Surgical History: Tonsillectomy Past Family/Social History Family History Relations & Conditions if any FATHER, , Age 60+; Cause: Myocardial infarct. FH: diabetes mellitus BROTHER FH: CAD (coronary artery disease) Psychosocial History Who Do You Live With? self Services at Home: None Primary Language: [place] Sudanese ETOH Use: denies use Illicit Drug Use: denies illicit drug use Living Will? no Power of Guard Range/HCP? no Functional Ability ADLs Independent: dressing, eating, toileting, bathing. Ambulation: cane IADLs Independent: shopping, housework, finances, food prep, telephone, transportation , medication admin. Review of Systems Review of Systems Constitutional: Reports: see HPI. Exam & Diagnostic Data Last 24 Hrs of Vital Signs/I&O Vital Signs Date Time Temp Pulse Resp B/P B/P Pulse O2 O2 Flow FiO2 Mean Ox Delivery Rate 07/13 1928 98.0 106 18 154/80 03/ 1920 98.0 106 18 154/80 96 Room Air 03/ 1820 97.8 108 16 158/79 03/ 1811 97.8 109 16 158/79 97 Room Air 03/ 1610 98.0 106 16 161/74 03/ 1604 98.0 106 16 161/74 95 Room Air 03/ 1420 98.3 109 16 148/81 03/01 1416 98.3 109 16 148/81 98 Room Air 03/ 1208 97.0 107 20 166/77 03/01 1201 98.0 107 20 166/77 99 Room Air 03/ 0832 100 18 130/80 03/01 0713 98 Room Air 03/ 0634 96.6 113 20 137/90 95 Room Air Intake & Output 03/ 1600 03/01 0800 03/01 0000 Intake Total Output Total Balance Patient 182 lb Weight Weight Reported by Patient Measurement Method Physical Exam General Appearance Alert, Oriented X3, Cooperative, No Acute Distress Skin No Significant Lesion HEENT Atraumatic, EOMI, Mucous Membr. moist/pink Cardiovascular Normal S1, Normal S2 Lungs Clear to Auscultation Abdomen Soft, No Tenderness Neurological Strength at 5/5 X4 Ext, Cranial Nerves 3-12 NL, Reflexes 2+, failed rmberg test, No nystagmus Last 24 Hrs of Labs/Rafal: Laboratory Tests 07/13/17 0815: Methadone Screen Cancelled, Barbiturate Screen Cancelled, Ur Phencyclidine Scrn Cancelled, Amphetamines Screen Cancelled, U Benzodiazepines Scrn Cancelled, Urine Cocaine Screen Cancelled, Urine Cannabis Screen Cancelled 07/13/17 0740: Urine Opiates Screen < 100, Methadone Screen < 40, Barbiturate Screen < 60, Ur Phencyclidine Scrn < 6.00, Amphetamines Screen < 100, U Benzodiazepines Scrn < 85, Urine Cocaine Screen < 50, Urine Cannabis Screen < 5.00, Urine Color YEL, Urine Clarity CLEAR, Urine pH 6.0, Ur Specific [place] 1.010, Urine Protein TRACE H, Urine Ketones NEG, Urine Nitrite NEG, Urine Bilirubin NEG, Urine Urobilinogen 0.2, Ur Leukocyte Esterase NEG, Ur Microscopic SEDIMENT EXAMINED, Urine WBC RARE, Ur Epithelial Cells RARE, Urine Bacteria FEW H, Granular Casts RARE H, Urine Hemoglobin NEG, Urine Glucose NEG 07/13/17 0641: Anion Gap 17 H, Estimated GFR 33 L, BUN/Creatinine Ratio 15.5, Glucose 188 H, Calcium 9.9, Magnesium 1.8, Total Bilirubin 0.5, AST 15 L, ALT 21, Alkaline Phosphatase 41, Ammonia 20, Total Protein 6.8, Albumin 4.2, Globulin 2.6, Albumin/Globulin Ratio 1.6, Vitamin B12 232 L, Folate 2.9, Free T4 1.19, Total T3 1.31, TSH &T3 &Free T4 Intrp 1.410, CBC w Diff NO MAN DIFF REQ, RBC 3.68 L, MCV 92.5, MCH 31.4 H, MCHC 34.0, RDW 16.1 H, MPV 8.4, Gran % 61.5, Lymphocytes % 20.7, Monocytes % 13.0 H, Eosinophils % 4.2, Basophils % 0.6, Absolute Granulocytes 3.3, Absolute Lymphocytes 1.1 L, Absolute Monocytes 0.7 H, Absolute Eosinophils 0.2, Absolute Basophils 0, Serum Alcohol 87.0 07/13/17 0636: RPR Titer/FTA Pending, Lyme Disease Antibody Pending Assessment/Plan Assessment: 66-year-old M was brought after was found with no pants in stairway PMH of alcohol dependence, alcohol withdrawal seizures, DM II on insuline, hypertension, pancreatitis, CKD, anxiety, asthma and insomnia was BIBA from [facility] VS, Ph Ex at admission: BP 137/9 0, no fever, MN 113, RR 20, AG 17, BUN 31, creatinine 2, BUN over creatinine 15.5, glucose 200, AST 15, vitamin B12 232 L, UA insignificant, Utox: Negative, Labs at admission: Hgb 11.6, WBC 5.4, others insignificant, Imagings at admission: No imaing in current admission Patient was admitted to floor for management of following conditions: r/o Korsakof dementia DMII anxiety asthma - admit to GM floor - cant leave AMA - Thiamin IV 500 IV for 3days then 250 5 days. - hold home zolpidem and alprazolam for now - TCR nebs - confirm CMR in AM FC alps and heparin diabetic diet As Ranked By This Provider Problem List: 1. Korsakoff disease Core Measures/Misc (01/29) Acute Coronary Syndrome ACS Diagnosis: No Congestive Heart Failure Congestive Heart Failure Diagnosis No Cerebrovascular Accident CVA/TIA Diagnosis: No VTE (View Protocol) VTE Risk Factors Age>40 No Mechanical VTE Prophylaxis d/t N/A MechProphylax Ordered No VTE Pharm Prophylaxis d/t NA PharmProphylax ordered Sepsis (View protocol) Sepsis Present: No Madie Mcintyre 07/13/17 1849: Resident Review Statement Resident Statement: examined this patient, discussed with help desk internship, agreed with help desk internship, discussed with family, reviewed EMR data (avail), discussed with nursing , discussed with case mgmt, reviewed images, amended to note Other Findings: 67 y.o., , male was BIBA from near his room at the [facility] on 07/13/17 @ 0628 with a CC of confusion. He was found by a neighbor at the stairway in his building without his pants on and intermittently confused. The patient was last seen here on 05/28/17 found wandering in the halls at the [facility] without clothes on. He was found to have a T7 fracture and was sent to [facility] that day. He has a long history of alcohol use disorder, and is currently minimizing his use. He also has a history of falls. He believes he was discharged from [place] or a physical rehab yesterday. He was discharged home from [facility] yesterday. Patient told us that he had " a little get to gether with his friends" last nigh and had a drink or two, which he believs it was a wrong thing to do. He does not remember the details of the period of time that he was drunk but he knows that he was certaily inappropriate and someone would have rightfuly called 911 on him. He offers no complains. He adamant that drinking was the wrong this to do and he should have avoided alcohol. He is very apperciative of his medical condition and values the care that is offered to him, comprehend the medical options, repeat them and makes logical decisions. ROS: as above VS: normal PHEx: GA: calm and relax; Cardio: S1 S2 no murmur; lungs: clear; neuro: AOx3, CN II-XII intact, no nysthagmus, , no sensory motor deficit, reflexs +2 symmetric, [id number] normal, heel to sheen normal. Gait normal, rhomberg + with close eyes. MMSE : List of active problems WE, dementia: no classic findings of WE; gradual, mild decline in cognitive function: check for TSH. DMII: we called Ex- and brother to confirm his dose of levemir. Unfortunately, we were unable to speak to family members. anxiety- stop Mild intermittent asthma incapacity to make medical descion Plan - admit GM - fall percussion - cant leave ama -thiamin 500 mg IV x 2days and 250 mg x 5 days - reassess medical decsion making capacity tomorrow- MMSE is kiersten sesitive for detecting incapacitated persons in making medical deisions, but semi-structured interview that we did in all 4 areas showed that patient is capable of making an informed, well though rationale desicion. -Fall percussion -stop zolpidem and alprazolam -[facility] and [facility] staffing order pain regimen FC-needs to be reassessed in the am Chani Hoskins MD 07/17/17 1112: General Information and HPI Allergies/Medications Home Med list Albuterol Sulfate (Proair Hfa) 90 MCG HFA.AER.AD 2 PUF INH Q4-6 PRN PRN wheezing Colchicine 0.6 MG TABLET 1 TAB PO DAILY GOUT (Reported) Docusate Sodium (Colace) 100 MG CAPSULE 1 CAP PO BID CONSTIPATION (Reported) Insulin Aspart, Recombinant (Novolog Flexpen) 100 UNIT/ML INSULN.PEN 5 UNITS SC TIDAC DIABETES (Reported) Insulin Detemir (Levemir Flextouch) 100 UNIT/ML (3 ML) INSULN.PEN 14 UNIT SC QPM DIABETES (Reported) LORazepam (Ativan) 1 MG TAB 1 TAB PO BID anxiety (Reported) Multivitamin (Daily Multiple Vitamin) 1 EACH TABLET 1 TAB PO DAILY Supplement Sennosides (Senna) 8.6 MG TABLET 2 TAB PO DAILY PRN CONSTIPATION (Reported) Trazodone HCl 100 MG TABLET 1 TAB PO QPM SLEEP (Reported) Zolpidem Tartrate (Ambien) 10 MG TABLET 1 TAB PO QPMP sleep (Reported) Attending MD Review Statement Attending Statement Attending MD Statement: examined this patient, discuss w/resident/PA/BOW REHAIRER, agreed w/resident/PA/BOW REHAIRER, reviewed EMR data (avail), discussed with nursing, discussed with case mgmt, amended to note Attending Assessment/Plan: See my addendum.
--- NOTE | 2017-07-13 19:13 | PN- Att Addend ---
Attending Addendum Attending Brief Note 67-year-old male with past medical history significant for alcohol dependence, alcohol withdrawal seizures, DM II on insuline, hypertension, pancreatitis, CKD, anxiety, asthma and insomnia previous admission with atypical chest pain as well as delirium last year who was brought in secondary to found on the neighbors stairways without any bands. Patient was brought in to the emergency room with altered mental status and confusion. Patient claims that he was getting his rehabilitation after he was discharged from [facility] when he was admitted with the thoracic spine fracture. According to psychiatrist note from the ER, the patient's ex-, Bharati Lin, , gave this information that his brother José Miguel, , picked him up at the physical rehab yesterday and brought him to the [facility], where she picked him up to do errands, finishing at about 5PM when she brought him back to the [facility]. He had gone to the rehab after treatment for a T7 Fx at [place] last 06/07/17, and had been having PT at the rehab. He had not had a drink on about 5 weeks. She received a text from the patient's friend, who watches over him at the [facility] at 8PM, and reported he was fine. Patient was able to answer some questions appropriately but at times he was found to be confused and could not answer properly. He currently denies any aches or pains. He did mention that he was admitted to [facility] with leg pain. Vital Signs Date Time Temp Pulse Resp B/P B/P Pulse O2 O2 Flow FiO2 Mean Ox Delivery Rate 07/13 1201 98.0 107 20 166/77 99 Room Air 07/13 0832 100 18 130/80 07/13 0713 98 Room Air 07/13 0634 96.6 113 20 137/90 95 Room Air on exam; awake, confused. cv; s1, s2, rrr resp; clear abd; soft, nt, bs+ ext; no edema. Laboratory Tests 07/13 07/13 0815 0740 Toxicology Urine Opiates Screen (>2000 NG/ML) < 100 Methadone Screen (>300 NG/ML) Cancelled < 40 Barbiturate Screen (>200 NG/ML) Cancelled < 60 Ur Phencyclidine Scrn (>25 NG/ML) Cancelled < 6.00 Amphetamines Screen (>1000 NG/ML) Cancelled < 100 U Benzodiazepines Scrn (>200 NG/ML) Cancelled < 85 Urine Cocaine Screen (>300 NG/ML) Cancelled < 50 Urine Cannabis Screen (>50 NG/ML) Cancelled < 5.00 Urines Urine Color (YEL,AMB,STR) YEL Urine Clarity (CLEAR) CLEAR Urine pH (5.0 - 8.0) 6.0 Ur Specific [place] (1.001 - 1.035) 1.010 Urine Protein (NEG,<30 MG/DL) TRACE H Urine Ketones (NEG) NEG Urine Nitrite (NEG) NEG Urine Bilirubin (NEG) NEG Urine Urobilinogen (0.1 - 1.0 EU/dl) 0.2 Ur Leukocyte Esterase (NEG) NEG Ur Microscopic SEDIMENT EXAMINED Urine WBC (0 - 2 /HPF) RARE Ur Epithelial Cells (NONE,FEW) RARE Urine Bacteria (NEG/NONE) FEW H Granular Casts (NONE /LPF) RARE H Urine Hemoglobin (NEG) NEG Urine Glucose (N MG/DL) NEG 07/13 07/13 0641 0636 Chemistry Sodium (137 - 145 mmol/L) 143 Potassium (3.5 - 5.1 mmol/L) 4.7 Chloride (98 - 107 mmol/L) 102 Carbon Dioxide (22 - 30 mmol/L) 24 Anion Gap (5 - 16) 17 H BUN (9 - 20 mg/dL) 31 H Creatinine (0.7 - 1.2 mg/dL) 2.0 H Estimated GFR (>60 ml/min) 33 L BUN/Creatinine Ratio (7 - 25 %) 15.5 Glucose (65 - 99 mg/dL) 188 H Calcium (8.4 - 10.2 mg/dL) 9.9 Magnesium (1.6 - 2.3 mg/dL) 1.8 Total Bilirubin (0.2 - 1.3 mg/dL) 0.5 AST (17 - 59 U/L) 15 L ALT (21 - 72 U/L) 21 Alkaline Phosphatase (< 127 U/L) 41 Ammonia (9 - 30 umol/L) 20 Total Protein (6.3 - 8.2 g/dL) 6.8 Albumin (3.5 - 5.0 g/dL) 4.2 Globulin (1.9 - 4.2 gm/dL) 2.6 Albumin/Globulin Ratio (1.1 - 2.2 %) 1.6 Vitamin B12 (239 - 931 pg/mL) 232 L Folate (2.76 - 20.0 ng/mL) 2.9 Free T4 (0.78 - 2.44 ng/dL) 1.19 Total T3 (0.97 - 1.69 ng/mL) 1.31 TSH &T3 &Free T4 Intrp (0.27 - 4.20 uIU/mL) 1.410 Hematology CBC w Diff NO MAN DIFF REQ WBC (4.8 - 10.8 /CUMM) 5.4 RBC (4.70 - 6.10 /CUMM) 3.68 L Hgb (14.0 - 18.0 G/DL) 11.6 L Hct (42 - 52 %) 34.0 L MCV (80.0 - 94.0 FL) 92.5 MCH (27.0 - 31.0 PG) 31.4 H MCHC (33.0 - 37.0 G/DL) 34.0 RDW (11.5 - 14.5 %) 16.1 H Plt Count (130 - 400 /CUMM) 237 MPV (7.4 - 10.4 FL) 8.4 Gran % (42.2 - 75.2 %) 61.5 Lymphocytes % (20.5 - 51.1 %) 20.7 Monocytes % (1.7 - 9.3 %) 13.0 H Eosinophils % (0 - 5 %) 4.2 Basophils % (0.0 - 2.0 %) 0.6 Absolute Granulocytes (1.4 - 6.5 /CUMM) 3.3 Absolute Lymphocytes (1.2 - 3.4 /CUMM) 1.1 L Absolute Monocytes (0.10 - 0.60 /CUMM) 0.7 H Absolute Eosinophils (0.0 - 0.7 /CUMM) 0.2 Absolute Basophils (0.0 - 0.2 /CUMM) 0 Serology RPR Titer/FTA Pending Lyme Disease Antibody Pending Toxicology Serum Alcohol (<10 MG/DL) 87.0 no imaging. A/P; 67-year-old male with past medical history significant for alcohol dependence, alcohol withdrawal seizures, DM II on insuline, hypertension, pancreatitis, CKD, anxiety, asthma and insomnia previous admission with atypical chest pain as well as delirium last year admitted with altered mental state. Patient was found to be wandering. Has been evaluated by psych and was not found to be appropriate for Inpatient Psychiatry. There is a question of possible Korsakoff with his alcohol use history and his alcohol level is positive. Patient be started on high-dose thiamine. His urinalysis is clear and there is no strong evidence of any infection at this time. His electrolytes are also not impressive. He doesn't vitamin B12 deficiency. He has chronic renal failure and his creatinine is at baseline almost. Last time his delirium was thought to be secondary to Ambien. We need to review his medications and make sure that he has not started on any recent new medications. Please confirm his dose of insulin. Patient will be getting Levemir as well as sliding scale insulin. He should also be getting Accu-Cheks every before meals daily at bedtime. Psych should be consulted. Patient should be on CIWA watch her when necessary Ativan. He should also receive folate and multivitamin as well as vitamin B12 replacement. Patient should be seen by physical therapy. Pharmacologic DVT prophylaxis. He would be considered a full code for now
[2017-07-14 07:20] VITALS: BP 128/68
--- NOTE | 2017-07-14 08:46 | PN- Housestaff ---
Greg Castaneda MD,[facility] 07/14/17 0846: Subjective Follow-up For: AMS r/o alcohol detox Subjective: Patient visited today, was lying in bed comfortably in no acute distress, was alert and oriented. No fever or chills, no shortness of breathing, no chest pain, no other events. Patient souds to be reasonable. MMSE was 29/30, only loosing score in remembering 1 of 3 words. Considering high alcohol level in blood yesterday. We will have patient in hospital, continue CIWA without ativan, and consider discharge later. Review of Systems Constitutional: Reports: see HPI. Objective Last 24 Hrs of Vital Signs/I&O Vital Signs Date Time Temp Pulse Resp B/P B/P Pulse O2 O2 Flow FiO2 Mean Ox Delivery Rate 07/14 1438 97.8 100 20 150/75 95 Room Air / 0720 97.8 91 20 128/68 95 07/13 2217 Room Air 07/13 2049 Room Air 07/13 2045 98.0 96 20 140/100 95 Room Air 07/13 1928 98.0 106 18 154/80 03/ 1920 98.0 106 18 154/80 96 Room Air 03 1820 97.8 108 16 158/79 03/01 1811 97.8 109 16 158/79 97 Room Air 03/ 1610 98.0 106 16 161/74 03/01 1604 98.0 106 16 161/74 95 Room Air Intake & Output / 1600 03/02 0800 03/02 0000 Intake Total 1720 390 Output Total 800 350 300 Balance 920 40 -300 Intake, IV 100 150 Intake, Oral 1620 240 Number 0 Bowel Movements Output, Urine 800 350 300 Patient 181 lb Weight Weight Reported by Patient Measurement Method Physical Exam General Appearance: Alert, Oriented X3, Cooperative, No Acute Distress Skin: No Significant Lesion Skin Temp/Moisture Exam: Warm/Dry HEENT: Atraumatic, EOMI, Mucous Membr. moist/pink Cardiovascular: Normal S1, Normal S2 Lungs: Clear to Auscultation, Normal Air Movement Abdomen: Soft, No Tenderness Neurological: MSSE 29/30 decreased sensation in disral bilateral LE Extremities: No Edema Current Medications: Current Medications Sig/Michael Start time Last Medication Dose Route Stop Time Status Admin Acetaminophen 650 MG Q6P PRN 03/01 1930 AC PO Acetaminophen 1,000 MG Q6P PRN 07/13 193 AC IV Albuterol Sulfate 2 PUF Q4 PRN 07/13 1945 AC 07/14 INH 0554 Albuterol Sulfate 2 PUF Q6 07/13 1329 DC 07/13 INH 1816 Calcium Carbonate 500 MG DAILY 07/14 2051 AC 07/14 PO 0851 Heparin Sodium 5,000 UNIT Q8 07/13 2199 AC 07/14 (Porcine) SC 0449 Insulin Aspart 0 TIDAC 07/14 08 AC 07/14 SC 1240 Insulin Detemir 7 UNITS 07/13 AC 07/13 SC 2144 Lorazepam 2 MG Q6H 07/14 0400 DC 07/14 PO 0851 Lorazepam 0 Q1P PRN 07/13 2100 DC IV Lorazepam 2 MG Q6 07/14 2055 DC 07/13 PO 2145 Melatonin 5 MG AT BEDTIME 07/13 2199 AC 07/13 PO 2150 Morphine Sulfate 1 MG Q4P PRN 07/13 193 AC IV Patient Medication 1 ED ONE ONE 07/14 1315 DC Teaching ED 07/14 1316 Thiamine HCl 250 MG DAILY 07/14 1000 CAN IV 07/18 1001 Thiamine HCl 250 MG DAILY 07/14 1000 AC 07/14 Sodium Chloride 100 ML IV 07/18 1029 1035 Thiamine HCl 250 MG ONCE ONE 07/14 1999 DC 07/13 Sodium Chloride 100 ML IV 07/13 202 2145 Thiamine HCl 250 MG ONCE ONE 07/13 1845 CAN IV 07/13 184 Assessment/Plan Assessment: 66-year-old M was brought after was found with no pants in stairway PMH of alcohol dependence, alcohol withdrawal seizures, DM II on insuline, hypertension, pancreatitis, CKD, anxiety, asthma and insomnia was BIBA from [facility] VS, Ph Ex at admission: BP 137/9 0, no fever, IL 113, RR 20, AG 17, BUN 31, creatinine 2, BUN over creatinine 15.5, glucose 200, AST 15, vitamin B12 232 L, UA insignificant, Utox: Negative, Labs at admission: Hgb 11.6, WBC 5.4, others insignificant, Imagings at admission: No imaing in current admission Patient was admitted to floor for management of following conditions: r/o Korsakof dementia DMII anxiety asthma - admit to GM floor - cant leave AMA per Psych - today CMME was 29/30 - Thiamin IV 500 IV for 3days then 250 5 days. - hold home zolpidem and alprazolam for now - TCR nebs - will consider discharge when stable FC alps and heparin diabetic diet Problem List: 1. Korsakoff disease 2. ETOH abuse Pain Ratin Pain Location: None Pain Goal: Pain 4 or less Pain Plan: Continue current plan Tomorrow's Labs & Rationales: None Larry Crabtree 07/14/17 1235: Attending MD Review Statement Attending Statement Attending MD Statement: examined this patient, discuss w/resident/PA/ELECTRICAL AND INSTRUMENT MECHANIC, agreed w/resident/PA/ELECTRICAL AND INSTRUMENT MECHANIC, discussed with family, reviewed EMR data (avail), discussed with nursing, discussed with case mgmt, reviewed images, amended to note Attending Assessment/Plan: A/P; 67-year-old male with past medical history significant for alcohol dependence, alcohol withdrawal seizures, DM II on insuline, hypertension, pancreatitis, CKD, anxiety, asthma and insomnia previous admission with atypical chest pain as well as delirium last year admitted with altered mental status and confusion which improved this morning. He left ama from rehab facility. Patient is alcohol intoxicated and CIWA receiving ativan PO taper. Thaimine , folic acid daily. Patient vital stable and monitor for alcohol withdrawal signs. /mon case management. F/u previous records.
[2017-07-14 14:38] VITALS: BP 150/75
[2017-07-14] MEDS ORDERED: COLCHICINE0.6 M2 PO (15:47)
[2017-07-14] MEDS ORDERED: TRAZODONE HCL100 M1 PO (15:48)
[2017-07-14] MEDS ORDERED: SENNA8.6 M3 PO (15:51)
[2017-07-14] MEDS ORDERED: COLACE100 M1 PO (15:51)
--- NOTE | 2017-07-14 17:40 | Patient Discharge Instructions ---
Discharge Instructions General Discharge Information You were seen/treated for: Altered mental status Watch for these problems: Severe dizziness, headache, lightheadedness, shortness of breathing, chest pain or worsening of any other symptoms Special Instructions: Please follow with your PCP within one week of discharge. Please don't drink alcohol. Diet Continue normal diet: No Recommended Diet: Diabetic Activity Full Activity/No Limits: No Activity Self Limited: Yes Acute Coronary Syndrome Inclusion Criteria At DC or during hospital stay patient has or had the following: ACS DIAGNOSIS No Discharge Core Measures Meds if any: Prescribed or Continued at Discharge Meds if any: NOT Prescribed or Continued at Discharge Congestive Heart Failure Inclusion Criteria At DC or during hospital stay patient has or had the following: CHF DIAGNOSIS No Discharge Core Measures Meds if any: Prescribed or Continued at Discharge Meds if any: NOT Prescribed or Continued at Discharge Cerebrovascular accident Inclusion Criteria At DC or during hospital stay patient has or had the following: CVA/TIA Diagnosis No Discharge Core Measures Meds if any: Prescribed or Continued at Discharge Meds if any: NOT Prescribed or Continued at Discharge Venous thromboembolism Inclusion Criteria VTE Diagnosis No VTE Type NONE VTE Confirmed by (Test) NONE Discharge Core Measures - Per Current guidelines, there needs to be overlap - treatment for the first 5 days of Warfarin therapy. - If discharged on Warfarin prior to 5 days of - overlap therapy, the patient will need to be - assessed for post discharge needs including - *Post discharge parental anticoagulation - *Warfarin and/or parental anticoagulation education - *Follow up date to check INR post discharge At least 5 days overlap therapy as Inpatient No Meds if any: Prescribed or Continued at Discharge Note: Overlap Therapy is Warfarin and Anticoagulant Meds if any: NOT Prescribed or Continued at Discharge
[2017-07-14 22:08] VITALS: BP 140/80
[2017-07-15] VITALS (9 sets, daily range): BP systolic 122–142; BP diastolic 62–82
--- NOTE | 2017-07-15 09:04 | PN- Housestaff ---
See Addendum Subjective Follow-up For: AMS Subjective: Patient was seen and examined at bedside. He reports doing okay. Does not offer any complaints. No active issues overnight. Review of Systems Constitutional: Reports: no symptoms. Objective Last 24 Hrs of Vital Signs/I&O Vital Signs Date Time Temp Pulse Resp B/P B/P Pulse O2 O2 Flow FiO2 Mean Ox Delivery Rate 07/15 0630 98.0 85 20 142/82 94 07/14 2208 98.5 101 18 140/80 96 Room Air 07/14 1438 97.8 100 20 150/75 95 Room Air Intake & Output 07/15 1600 07/15 0800 07/15 0000 Intake Total 400 550 Output Total 750 450 Balance -350 100 Intake, Oral 400 550 Output, Urine 750 450 Physical Exam General Appearance: Alert, Oriented X3, Cooperative, No Acute Distress Skin: No Rashes, No Breakdown Skin Temp/Moisture Exam: Warm/Dry Sepsis Skin Exam (color): Normal for Ethnicity HEENT: Atraumatic Cardiovascular: Normal S1, Normal S2, No Murmurs Lungs: Clear to Auscultation, Normal Air Movement Abdomen: Soft, No Tenderness Neurological: Normal Speech Extremities: No Edema Assessment/Plan Assessment: 66-year-old M was brought for evaluation of altered mental status. PMH of alcohol dependence, alcohol withdrawal seizures, DM II on insulin, hypertension, pancreatitis, CKD, anxiety, asthma and insomnia was BIBA from [facility] Assessment: 1. Altered Mental Status - resolved 2. History of DM2 3. History of Alcohol Intoxication 4. History of Hypertension Plan: * His AMS appears to be resolved today. * His CIWA scores have been 0 past 24 hours. * Will await psych input before discharging patient. * Continue IV thiamine, folate. * Start vit b12 supplementation * Continue Trazodone for sleep but will hold Zolpidem for now. * Diet: Diabetic * DVT Prophylaxis: Heparin SC x3 and ALPS * Code: Full Code Problem List: 1. Altered mental status Pain Ratin Pain Location: none Pain Goal: Remain pain free Pain Plan: none Tomorrow's Labs & Rationales: CBC
[2017-07-16 05:45] VITALS: BP 122/84
--- NOTE | 2017-07-16 08:32 | PN- Housestaff ---
See Addendum Subjective Follow-up For: AMS Subjective: Patient was seen and examined at bedside. he sometimes has pain in his right knee and feet which is improved with tylenol. No overnight events. Looks forward to go home today. Review of Systems Constitutional: Reports: no symptoms. Objective Last 24 Hrs of Vital Signs/I&O Vital Signs Date Time Temp Pulse Resp B/P B/P Pulse O2 O2 Flow FiO2 Mean Ox Delivery Rate 07/16 0545 99.3 95 20 122/84 93 03/ 2145 98.9 103 20 122/70 96 Room Air 03/ 1800 97.8 108 18 140/62 03/03 1600 97.8 108 18 140/62 03/03 1400 97.8 108 18 140/62 03/03 1349 97.8 108 18 140/62 93 /03 1200 97.7 94 20 138/78 03/03 1000 98.0 85 20 142/82 Intake & Output / 1600 /04 0800 07/16 0000 Intake Total 120 500 Output Total 775 450 Balance -655 50 Intake, Oral 120 500 Output, Urine 775 450 Physical Exam General Appearance: Alert, Oriented X3, Cooperative, No Acute Distress Skin: No Rashes, No Breakdown Skin Temp/Moisture Exam: Warm/Dry Sepsis Skin Exam (color): Normal for Ethnicity HEENT: Atraumatic Cardiovascular: Normal S1, Normal S2, No Murmurs Lungs: Clear to Auscultation, Normal Air Movement Abdomen: Soft, No Tenderness Neurological: Normal Speech Extremities: No Edema Assessment/Plan Assessment: 66-year-old M was brought for evaluation of altered mental status. PMH of alcohol dependence, alcohol withdrawal seizures, DM II on insulin, hypertension, pancreatitis, CKD, anxiety, asthma and insomnia was BIBA from [facility] Assessment: 1. Altered Mental Status - resolved 2. History of DM2 3. History of Alcohol Intoxication 4. History of Hypertension Plan: * His AMS appeared to be resolved yesterday. He is fully alert and oriented. * His CIWA scores have been 0 past 24-48 hours. * Continue IV thiamine, folate. * Continue vit b12 supplementation * Continue Trazodone for sleep but will hold Zolpidem for now. * Patient is stable for discharge. * Diet: Diabetic * DVT Prophylaxis: Heparin SC x3 and ALPS * Code: Full Code Problem List: 1. Altered mental status Pain Ratin Pain Location: none Pain Goal: Remain pain free Pain Plan: none Tomorrow's Labs & Rationales: none
[2017-07-16] MEDS ORDERED: DAILY MULTIPLE1 EACH PO (08:33)
[2017-07-16 08:48] LABS: ABSOLUTE BASOPHIL COUNT 0 /CUMM (0.0-0.2); ABSOLUTE EOSINOPHIL COUNT 0.1 /CUMM (0.0-0.7); ABSOLUTE GRANULOCYTE CT 5.1 /CUMM (1.4-6.5); ABSOLUTE MONOCYTE COUNT 0.9 /CUMM (0.10-0.60); BASOPHIL % 0.2 % (0.0-2.0); EOSINOPHIL % 1.4 % (0-5); GRANULOCYTE % 72.1 % (42.2-75.2); HEMATOCRIT 33.2 % (42-52); MEAN CORPUSCULAR HGB 31.4 PG (27.0-31.0); MEAN CORPUSCULAR HGB CONC 34.2 G/DL (33.0-37.0); MEAN CORPUSCULAR VOLUME 91.7 FL (80.0-94.0); MEAN PLATELET VOLUME 8.9 FL (7.4-10.4); PLATELET COUNT 226 /CUMM (130-400); RBC DISTRIBUTION WIDTH 15.7 % (11.5-14.5); RED BLOOD CELL CT 3.62 /CUMM (4.70-6.10); WHITE BLOOD CELL COUNT 7.1 /CUMM (4.8-10.8)
--- NOTE | 2017-07-17 09:01 | Discharge Summary ---
Visit Information Visit Dates Admission Date: 07/13/17 Discharge Date: 07/16/17 Hospital Course Course Attending Physician: Molly Kiser MD Primary Care Physician: Jarrod ELIZONDO,[facility] Course: 66-year-old M was brought after was found with no pants in stairway PMH of alcohol dependence, alcohol withdrawal seizures, DM II on insuline, hypertension, pancreatitis, CKD, anxiety, asthma and insomnia was BIBA from [facility], Ph Ex at admission: BP 137/9 0, no fever, MA 113, RR 20, AG 17, BUN 31, creatinine 2, BUN over creatinine 15.5, glucose 200, AST 15, vitamin B12 232 L, UA insignificant, Utox: Negative, Labs at admission: Hgb 11.6, WBC 5.4, others insignificant, Patient was admitted to [facility] floor for management of and evaluation of altered mental status. Patient had initially altered mental statys with MMSE of 23/30. IV thimain was started with concerns of alcohol related encephalopathy. Mental status was improvce the day after to MME score of 29/30. Home zolpidem and alprazolam were hold considering change in mental status. [facility] nebs were administered for Asthma and Insuline for DM. Patient was later followed and was found to be stable to his baseline. with improvement patient was dischaged with recommendations below. Allergies: Coded Allergies: NO KNOWN ALLERGIES (06/15/16) Significant Procedures: None Disposition Summary Disposition Principal Diagnosis: Altered mental status Additional Diagnosis: DM Alcohol abuse Discharge Disposition: home health services Discharge Instructions General Discharge Information Code Status: Full Code Patient's Diet: Diabetic Patient's Activity: as tolerated Follow-Up Instructions/Appts: Please follow with your PCP within one week of discharge. Please don't drink alcohol. Medications at Discharge Discharge Medications: Continue taking these medications: Insulin Aspart, Recombinant (Novolog Flexpen) 100 UNIT/ML INSULN.PEN 5 Units Inject into fatty tissue 3 TIMES DAILY BEFORE MEALS Comments: Last Taken: 07/16/17 Time: 12:00 PM Insulin Detemir (Levemir Flextouch) 100 UNIT/ML (3 ML) INSULN.PEN 14 Unit Inject into fatty tissue Every night Comments: Last Taken: 03/10/17 Time: 1000 LORazepam (Ativan) 1 MG TAB 1 Tablet ORAL TWICE DAILY Comments: NOT GIVEN IN THE HOSPITAL Zolpidem Tartrate (Ambien) 10 MG TABLET 1 Tablet ORAL Every night as needed Albuterol Sulfate (Proair Hfa) 90 MCG HFA.AER.AD 2 Puff Inhale through mouth EVERY 4-6 HOURS NEEDED as needed for wheezing Qty = 1 Comments: Last Taken:07/16/17 Time:11:00 AM Colchicine (Colchicine) 0.6 MG TABLET 1 Tablet ORAL DAILY Qty = 30 Comments: Last Taken:07/16/17 Time:10:22 AM Trazodone HCl (Trazodone HCl) 100 MG TABLET 1 Tablet ORAL Every night Comments: Last Taken:07/15/17 Time:8:30 PM Docusate Sodium (Colace) 100 MG CAPSULE 1 Capsule ORAL TWICE DAILY Qty = 60 Comments: NOT GIVEN IN HOSPITAL Sennosides (Senna) 8.6 MG TABLET 2 Tablet ORAL DAILY as needed for CONSTIPATION Comments: NOT GIVEN IN THE HOSPITAL Start taking the following new medications: Multivitamin (Daily Multiple Vitamin) 1 EACH TABLET 1 Tablet ORAL DAILY Qty = 30 No Refills Copies To: Abdirashid Garay DC Attending MD Review Statement Documenting Attending: Larry Crabtree MD Other Findings: Discharging physician Dr Shawn Swain MD
== END 2017-07-16 13:13 | disposition home health service (06) | DRG 897 ==
LOC: ERH 06:28 → ERHI 16:57 → 2NB 16:57 → ENRESERV 18:17 → ENTRNSPT 19:47 → EDTRNSPTSTS 19:59 → EDTRNSPT 19:59 → 2NB 20:10 → CMPTRNSPT 20:15 → ENPENDDIS 07-16 08:54 → ENTRNSPT 07-16 12:19 → EDTRNSPTSTS 07-16 12:53 → CMPTRNSPT 07-16 13:11 → 2NB 07-16 13:13
PROVIDERS: Emergency Medicine; Internal Medicine
DX: F10.221 Alcohol dependence with intoxication delirium (principal); E11.22 Type 2 diabetes mellitus with diabetic chronic kidney disease; E11.8 Type 2 diabetes mellitus with unspecified complications; N18.9 Chronic kidney disease, unspecified; F04 Amnestic disorder due to known physiological condition; Z79.4 Long term (current) use of insulin; J45.909 Unspecified asthma, uncomplicated; F41.9 Anxiety disorder, unspecified; Y90.4 Blood alcohol level of 80-99 mg/100 ml; I12.9 Hypertensive chronic kidney disease with stage 1 through stage 4 chronic kidney disease, or unspecified chronic kidney disease
CPT/HCPCS: 2NBP; 86618; 36592; 80307; 81001; 82436; 99233; G0480; J1644; J3490

== ENCOUNTER 2017-11-19 11:38 | Inpatient (IN) | payer OTHER, MEDICARE ==
[~2017-11-19] VITALS: Ht 175.3 cm; Wt 85.0 kg
[~2017-11-19 11:38] MED LIST changes: +COLACE100 M1 PO; +COLCHICINE0.6 M2 PO; +DAILY MULTIPLE1 EACH PO; +LISINOPRIL10 M1 PO; +LORAZEPAM1 M1 PO; +PREDNISONE10 M2 PO; +SENNA8.6 M3 PO; +TESSALON PERLE100 M1 PO; +TRAZODONE HCL100 M1 PO; +ZITHROMAX500 M2 PO; +ZOLPIDEM TARTRA10 M1 PO
--- NOTE | 2017-11-19 17:02 | ED AMS/SEIZURE/WEAK/DIZZY ---
History of Present Illness General Chief Complaint: Altered Mental Status Stated Complaint: BIBA AMS, BED BUGS Source: patient, old records, EMS Exam Limitations: confusion Vital Signs & Intake/Output Vital Signs & Intake/Output Vital Signs Date Time Temp Pulse Resp B/P B/P Pulse O2 O2 Flow FiO2 Mean Ox Delivery Rate 11/19 1614 97.4 90 18 164/89 100 Room Air 11/19 1202 98.7 89 18 135/69 99 Room Air Allergies Coded Allergies: No Known Allergies (07/20/17) Reconcile Medications Albuterol Sulfate (Proair Hfa) 90 MCG HFA.AER.AD 2 PUF INH Q4-6 PRN PRN wheezing Azithromycin (Zithromax) 500 MG TABLET 1 TAB PO DAILY BRONCHITIS Benzonatate (Tessalon Perle) 100 MG CAPSULE 1 CAP PO TID PRN COUGH Colchicine 0.6 MG TABLET 1 TAB PO DAILY GOUT (Reported) Docusate Sodium (Colace) 100 MG CAPSULE 1 CAP PO BID CONSTIPATION (Reported) Insulin Aspart, Recombinant (Novolog Flexpen) 100 UNIT/ML INSULN.PEN 5 UNITS SC TIDAC DIABETES (Reported) Insulin Detemir (Levemir Flextouch) 100 UNIT/ML (3 ML) INSULN.PEN 14 UNIT SC QPM DIABETES (Reported) Lisinopril 10 MG TABLET 1 TAB PO DAILY HIGH BLOOD PRESSURE (Reported) LORazepam (Ativan) 1 MG TAB 1 TAB PO BID anxiety (Reported) Lorazepam 1 MG TABLET 1 TAB PO TID ANXIETY (Reported) Multivitamin (Daily Multiple Vitamin) 1 EACH TABLET 1 TAB PO DAILY Supplement Prednisone 10 MG TABLET 1 TAB PO AD INFLAMMATION Sennosides (Senna) 8.6 MG TABLET 2 TAB PO DAILY PRN CONSTIPATION (Reported) Trazodone HCl 100 MG TABLET 1 TAB PO QPM SLEEP (Reported) Zolpidem Tartrate (Ambien) 10 MG TABLET 1 TAB PO QPMP sleep (Reported) Zolpidem Tartrate 10 MG TABLET 1 TAB PO QPMP SLEEP HELP (Reported) Triage Note: PT BIBA FROM HOME FOR "AMS". PT ORITENTED TO PERSON & YEAR ON ARRIVAL. PT WAS RELEASED FROM THIS FACILITY THIS AM Triage Nurses Notes Reviewed? yes Onset: Just prior to arrival Duration: hour(s):, constant, continues in ED Timing: recent history Injury Environment: home Severity: moderate, severe Modifying Factors: Worsens With: other (alcohol). Associated Symptoms: nausea HPI: Less than 1 day prior to admission patient was found sleeping on someone's lawn admitting to alcohol ingestion. He was evaluating the emergency department and discharged. He was referred back to the emergency department for confusion. He does not know why he came back to the emergency department. He offers no complaint. He speaks in 3 to four word sentences and loses his concentration. He denies fever chills vomiting diarrhea abdominal pain chest pain shortness breath headache dysuria rash bleeding change in motor sensory function. Past History Travel History Traveled to [place] past 21 day No Medical History Any Pertinent Medical History? see below for history Neurological: ALCOHOL WITHDRAWAL SEIZUR *06/15/16- PT DENIES HX OF ETOH W/ SEIZURES* EENT: NONE Cardiovascular: hypertension Respiratory: asthma Gastrointestinal: pancreatitis Hepatic: NONE Renal: NONE Musculoskeletal: NONE Psychiatric: alcohol dependence, anxiety, depression, insomnia Endocrine: DM Blood Disorders: NONE Cancer(s): NONE SHERIFF/Reproductive: NONE History of MRSA: No History of VRE: No History of CDIFF: No Tetanus Vaccine: 02/04/05 Surgical History Surgical History: appendectomy, Tonsillectomy Psychosocial History Who do you live with Other (see notes) Services at Home None What is your primary language Malaysian Tobacco Use: Current Daily Use Daily Tobacco Use Amount/Type: => 5 Cigarettes daily ETOH Use: alcoholic Illicit Drug Use: denies illicit drug use Family History Family History, If Any: FATHER, , Age 60+; Cause: Myocardial infarct. FH: diabetes mellitus BROTHER FH: CAD (coronary artery disease) Hx Contributory? No Review of Systems Review of Systems Constitutional: Reports: no symptoms. EENTM: Reports: no symptoms. Respiratory: Reports: no symptoms. Cardiovascular: Reports: no symptoms. GI: Reports: see HPI, nausea. Genitourinary: Reports: no symptoms. Musculoskeletal: Reports: no symptoms. Skin: Reports: no symptoms. Neurological/Psychological: Reports: see HPI, confusion. Hematologic/Endocrine: Reports: no symptoms. Immunologic/Allergic: Reports: no symptoms. All Other Systems: Reviewed and Negative Physical Exam Physical Exam General Appearance: well developed/nourished, alert, awake, anxious, moderate distress Head: atraumatic, normal appearance Eyes: Bilateral: normal appearance, PERRL, EOMI. Ears, Nose, Throat: normal pharynx, normal ENT inspection Neck: normal inspection, supple, full range of motion, no midline tenderness Respiratory: normal breath sounds, chest non-tender, no respiratory distress, quiet respiration, lungs clear Cardiovascular: regular rate/rhythm, normal peripheral pulses, norml femoral pulses equa Peripheral Pulses: 4+ carotid (R), 4+ carotid (L) Gastrointestinal: normal bowel sounds, soft, non-tender, no organomegaly Back: normal inspection, normal range of motion Extremities: normal range of motion, no ligament instability Neurologic/Psych: no motor/sensory deficits, awake, alert, 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 Skin: intact, normal color, warm/dry Lymphatic: no anterior cervical bing Core Measures ACS in differential dx? No CVA/TIA Diagnosis No Sepsis Present: No Sepsis Focused Exam Completed? No Progress Differential Diagnosis: alcohol intoxication, CVA/stroke, dehydration, drug intoxication, electrolyte imbalance, hypoglycemia Plan of Care: Orders Procedure Date/time Status Regular Diet 11/19 D Active AMMONIA 11/19 1556 Complete OXYGEN SETUP (GEN) 11/19 1555 Active Saline Lock 11/19 1555 Active Admit to inpatient 11/19 1555 Active Vital Signs 11/19 1555 Active Activity/Ambulation 11/19 1555 Active Code Status 11/19 1555 Active URINE DRUG SCREEN FOR ER ONLY 11/19 1306 Complete URINALYSIS 11/19 1306 Complete Current Medications Sig/Michael Start time Last Medication Dose Stop Time Status Admin Cyanocobalamin/ 1 BAG ONCE ONE 11/19 1600 AC 11/19 Thiamine/Pyridoxine 11/19 2359 1633 (Vitamin in I.V.) Dextrose/Water 1,000 ML (D5W 1000) Laboratory Tests 11/19/17 1613: Ammonia < 9 L 11/19/17 1305: Urine Opiates Screen < 100, Methadone Screen < 40, Barbiturate Screen < 60, Ur Phencyclidine Scrn < 6.00, Amphetamines Screen < 100, U Benzodiazepines Scrn < 85, Urine Cocaine Screen < 50, Urine Cannabis Screen 71.70 H, Urine Color STRAW , Urine Clarity CLEAR, Urine pH 6.5, Ur Specific [place] <= 1.005, Urine Protein TRACE H, Urine Ketones NEG, Urine Nitrite NEG, Urine Bilirubin NEG, Urine Urobilinogen 0.2, Ur Leukocyte Esterase NEG, Ur Microscopic SEDIMENT EXAMINED, Urine RBC RARE, Ur Epithelial Cells RARE, Urine Hemoglobin NEG, Urine Glucose NEG Initial ED EKG: none Departure Departure Disposition: STILL A PATIENT Condition: Stable Clinical Impression Primary Impression: Alcoholic encephalopathy Referrals: Abdirashid Garay DC (PCP/Family) Departure Forms: Customer Survey General Discharge Information Admission Note Spoke With: Margo Medrano MD Documentation of Exam: Documentation of any treatments & extenuating circumstances including Concerns Regarding Discharge (functional status, medication knowledge or non-compliance, living conditions, etc.) that warrant an admission rather than observation: Serial neurologic exam electrolyte and mineral replacement neurology evaluation physical therapy medication adjustment continuing care discharge planning
--- NOTE | 2017-11-19 17:27 | History & Physical ---
Maria D FARIA,Yi 11/19/17 1727: General Information and HPI MD Statement: I have seen and personally examined LEVI ULLOA and documented this H&P. The patient is a 67 year old M who presented with a patient stated chief complaint of [altered mental status]. Source of Information: patient, old records, EMS Exam Limitations: no limitations History of Present Illness: Patient is a 67 YO M with PMH significant for alcohol dependence, alcohol withdrawal seizures, diabetes type 2, hypertension, anxiety, asthma and insomnia presented to [facility] with persistent confusion. Patient was in ER a day prior to admission after found sleeping in the lawn of his neighbors. He was found to be slow to response, intoxicated with marijuana. Once he became stable he was discharged from the ER today morning. CT scan was normal at that time. After the discharge he continued to be confused. He was unable to provide any history after coming to ER. He tried to amputate unsafely multiple times in the ER and continued to be persistently altered. He reports remembering going out of the ER after walking and do not really know why he came to ER again. Thus a decision was made to admit the patient due to unstable physical condition/toxic appearance. He knows his name, place. per ER there were bedbugs in his room and his room was quarantined. Allergies/Medications Allergies: Coded Allergies: No Known Allergies (07/20/17) Home Med list Albuterol Sulfate (Proair Hfa) 90 MCG HFA.AER.AD 2 PUF INH Q4-6 PRN PRN wheezing Azithromycin (Zithromax) 500 MG TABLET 1 TAB PO DAILY BRONCHITIS Benzonatate (Tessalon Perle) 100 MG CAPSULE 1 CAP PO TID PRN COUGH Colchicine 0.6 MG TABLET 1 TAB PO DAILY GOUT (Reported) Docusate Sodium (Colace) 100 MG CAPSULE 1 CAP PO BID CONSTIPATION (Reported) Insulin Aspart, Recombinant (Novolog Flexpen) 100 UNIT/ML INSULN.PEN 5 UNITS SC TIDAC DIABETES (Reported) Insulin Detemir (Levemir Flextouch) 100 UNIT/ML (3 ML) INSULN.PEN 14 UNIT SC QPM DIABETES (Reported) Lisinopril 10 MG TABLET 1 TAB PO DAILY HIGH BLOOD PRESSURE (Reported) LORazepam (Ativan) 1 MG TAB 1 TAB PO BID anxiety (Reported) Lorazepam 1 MG TABLET 1 TAB PO TID ANXIETY (Reported) Multivitamin (Daily Multiple Vitamin) 1 EACH TABLET 1 TAB PO DAILY Supplement Prednisone 10 MG TABLET 1 TAB PO AD INFLAMMATION Sennosides (Senna) 8.6 MG TABLET 2 TAB PO DAILY PRN CONSTIPATION (Reported) Trazodone HCl 100 MG TABLET 1 TAB PO QPM SLEEP (Reported) Zolpidem Tartrate (Ambien) 10 MG TABLET 1 TAB PO QPMP sleep (Reported) Zolpidem Tartrate 10 MG TABLET 1 TAB PO QPMP SLEEP HELP (Reported) Compliance With Home Meds: UNKNOWN Past History Travel History Traveled to [place] past 21 day No Medical History Neurological: ALCOHOL WITHDRAWAL SEIZUR *06/15/16- PT DENIES HX OF ETOH W/ SEIZURES* EENT: NONE Cardiovascular: hypertension Respiratory: asthma Gastrointestinal: pancreatitis Hepatic: NONE Renal: NONE Musculoskeletal: NONE Psychiatric: alcohol dependence, anxiety, depression, insomnia Endocrine: DM Blood Disorders: NONE Cancer(s): NONE TRANSIT SPECIALIST/Reproductive: NONE History of MRSA: No History of VRE: No History of CDIFF: No Tetanus Vaccine: 02/04/05 Surgical History Surgical History: appendectomy, Tonsillectomy Past Family/Social History Family History Relations & Conditions if any FATHER, , Age 60+; Cause: Myocardial infarct. FH: diabetes mellitus BROTHER FH: CAD (coronary artery disease) Psychosocial History Who Do You Live With? self Services at Home: None Primary Language: Telugu ETOH Use: alcoholic Illicit Drug Use: denies illicit drug use Living Will? no Power of Title I Paraprofessional/HCP? no Functional Ability ADLs Independent: dressing, eating, toileting, bathing. Ambulation: cane IADLs Independent: shopping, housework, finances, food prep, telephone, transportation , medication admin. Review of Systems Review of Systems Constitutional: Reports: see HPI. Exam & Diagnostic Data Last 24 Hrs of Vital Signs/I&O Vital Signs Date Time Temp Pulse Resp B/P B/P Pulse O2 O2 Flow FiO2 Mean Ox Delivery Rate 11/19 1614 97.4 90 18 164/89 100 Room Air 11/19 1202 98.7 89 18 135/69 99 Room Air Intake & Output 11/19 1600 11/19 0800 07 0000 Intake Total Output Total Balance Patient 79.379 kg Weight Weight Reported by Patient Measurement Method Physical Exam General Appearance Alert, Cooperative, No Acute Distress, plethoric Skin No Rashes, No Breakdown Skin Temp/Moisture Exam: Warm/Dry HEENT Atraumatic, PERRLA, EOMI Neck veins are prominent Cardiovascular Normal S1, Normal S2 Lungs Clear to Auscultation, Normal Air Movement Abdomen Normal Bowel Sounds, distended Neurological Strength at 5/5 X4 Ext, nonfocal Extremities No Clubbing, No Cyanosis, No Edema Last 24 Hrs of Labs/Rafal: Laboratory Tests 11/19/17 1809: Anion Gap 16, Estimated GFR 33 L, BUN/Creatinine Ratio 7.5, Lactic Acid 3.9 H, Total Bilirubin 0.9, Direct Bilirubin 0.2, AST 29, ALT 23, Alkaline Phosphatase 39, Total Protein 6.7, Albumin 4.1, Serum Alcohol 78.0 11/19/17 1729: Total Bilirubin Cancelled, Direct Bilirubin Cancelled, AST Cancelled, ALT Cancelled, Alkaline Phosphatase Cancelled, Total Protein Cancelled, Albumin Cancelled 11/19/17 1727: CBC w Diff Cancelled, WBC Cancelled, RBC Cancelled, Hgb Cancelled, Hct Cancelled , MCV Cancelled, MCH Cancelled, MCHC Cancelled, RDW Cancelled, Plt Count Cancelled, MPV Cancelled 11/19/17 1613: Ammonia < 9 L 11/19/17 1604: CBC w Diff NO MAN DIFF REQ, RBC 3.97 L, MCV 93.2, MCH 32.2 H, MCHC 34.6, RDW 17.3 H, MPV 8.5, Gran % 75.7 H, Lymphocytes % 14.5 L, Monocytes % 8.2, Eosinophils % 1.4, Basophils % 0.2, Absolute Granulocytes 5.0, Absolute Lymphocytes 1.0 L, Absolute Monocytes 0.5, Absolute Eosinophils 0.1, Absolute Basophils 0 11/19/17 1305: Urine Opiates Screen < 100, Methadone Screen < 40, Barbiturate Screen < 60, Ur Phencyclidine Scrn < 6.00, Amphetamines Screen < 100, U Benzodiazepines Scrn < 85, Urine Cocaine Screen < 50, Urine Cannabis Screen 71.70 H, Urine Color STRAW , Urine Clarity CLEAR, Urine pH 6.5, Ur Specific [place] <= 1.005, Urine Protein TRACE H, Urine Ketones NEG, Urine Nitrite NEG, Urine Bilirubin NEG, Urine Urobilinogen 0.2, Ur Leukocyte Esterase NEG, Ur Microscopic SEDIMENT EXAMINED, Urine RBC RARE, Ur Epithelial Cells RARE, Urine Hemoglobin NEG, Urine Glucose NEG Assessment/Plan Assessment: Patient is a 67 YO M with PMH significant for alcohol dependence, alcohol withdrawal seizures, diabetes type 2 presented to [facility] with persistent confusion. A day prior to admission he was in the ER found to be intoxicated with marijuana. Today he is completely altered and unable to provide any history. Vital signs are stable. Labs did show a lactic acid of 3.9 creatinine of 2.3--> 2.0, urine cannabis 71.7. CT head was normal yesterday. Repeat CT pending today. Differentials Acute marijuana intoxication/dehydration leading to CHEN/toxic encephalopathy/ metabolic encephalopathy Given multiple admissions for alcohol related altered mentation it is prudent to rule out Wernicke-Korsakoff encephalopathy. Plan Admitted to general medicine floor Altered Mental Status: Toxic vs metablic vs alcoholic encephalopathy * Probably in the setting of acute marijuana intake * Hydrate with D5 normal saline * Watch for hypoglycemia given on insulin at home * IV high-dose thiamine and IV banana bag * Thiamine/multivitamin/folic acid * Fall precautions * PT consult CHEN Probably secondary to dehydration * Aggressive hydration * Recheck BEP Lactic acidosis Probably secondary decreased per oral intake * IV hydration * Trend Lactic acid Diabetes mellitus Patient was on insulin at home. Given multiple episodes of significant altered mentation in the recent past. It is important to evaluate safety of taking insulin at home. * IV fluids with insulin sliding scale * Social consult Continue other home medications for chronic conditions for now DVT prophylaxis Subcutaneous heparin CODE STATUS Full code As Ranked By This Provider Problem List: 1. Alcohol use 2. Gait instability 3. Korsakoff psychosis 4. Metabolic encephalopathy Core Measures/Misc (01/29) Acute Coronary Syndrome ACS Diagnosis: No Congestive Heart Failure Congestive Heart Failure Diagnosis No Cerebrovascular Accident CVA/TIA Diagnosis: No VTE (View Protocol) VTE Risk Factors Acute Medical Illness No Mechanical VTE Prophylaxis d/t N/A MechProphylax Ordered No VTE Pharm Prophylaxis d/t NA PharmProphylax ordered Sepsis (View protocol) Sepsis Present: No If YES complete Sepsis Event Note If YES complete Sepsis Event Note Resident Review Statement Resident Statement: examined this patient, discussed with internal communications writer, agreed with internal communications writer, discussed with family, reviewed EMR data (avail), discussed with nursing , discussed with case mgmt, reviewed images, amended to note Other Findings: as above Mitchell FARIA,Margo 11/19/17 1821: Core Measures/Misc (01/29) Sepsis (View protocol) If YES complete Sepsis Event Note If YES complete Sepsis Event Note Attending MD Review Statement Attending Statement Attending MD Statement: examined this patient, discuss w/resident/PA/WOOD GANG SAWYER, agreed w/resident/PA/WOOD GANG SAWYER, reviewed EMR data (avail), discussed with nursing, discussed with case mgmt, amended to note Attending Assessment/Plan: Patient is a 67-year-old male with history of alcohol dependence. History is also significant for, hypertension, asthma, pancreatitis, alcohol related seizures and insulin-dependent diabetes mellitus. Recently admitted to [facility] in July apparently at that time he was found wandering around with no plants in the stairway in the [facility]. He had [facility] he was found confused. He was hospitalized and was managed for possible Wernicke encephalopathy. Documentation shows that he improved and was eventually discharged. He has however had several emergency room visits after that. He was back in the emergency room just 4 days after discharge the first time. He returned to the emergency room on November 11 after being found intoxicated again in the halls of the [facility]. He was discharged from the emergency room. He was brought again to the emergency room yesterday after being found intoxicated at the roadside. He was boarded in the emergency room and then discharged again from the emergency room yesterday. He was apparently brought back to the emergency room for evaluation again. It is unclear who brought the patient back to the emergency room. Patient is unable to provide any reliable history. He is not aware of why he is in the emergency room. He is actually upset I would like to go back home. When evaluated in the emergency room he was found to be confused and does refer to the hospital medicine service for further evaluation and management. He was provided with IV hydration ,thiamine and Zofran. In evaluating the patient I found him alert he appeared to be conversant appropriately however he could not answer some simple questions. He knew which hospital he was in however he could not tell me the year. He states that the president is Otis and could not provide a first name. He initially was very insistent on being discharged home however when he realized that he could not provide the correct answers to the questions he agreed to stay. Laboratory data done yesterday shows creatinine elevated above its baseline.He had no leukocytosis yesterday. Problems: 1. Altered mental status and the patient with history of alcohol abuse. He was brought to the emergency room yesterday and stated to being intoxicated. It is noted however that his alcohol level was negative. 2. Hypertension 3. Diabetes mellitus 4. Asthma Plan: -Etiology of his altered mentation is unclear. Negative alcohol levels yesterday suggest that he was not intoxicated. His ammonia level is not elevated. Urine toxicology is positive for cannabis today. There is no history of head trauma however patient's history is unreliable. Recommend obtaining head CT scan. Recommend neuro watch every shift. Recommend fall precautions. -Begin patient on IV thiamine supplementation for possible weaning his encephalopathy. -If altered mentation persists tomorrow and head CT is negative recommend neurology evaluation -Confirmed his insulin regimen and continue this. Patient will need to demonstrate ability to safely administer insulin prior to discharge. -Recommend social work evaluation he will benefit from inpatient alcohol rehabilitation given his repeated ER visits recently. -Repeat CBC and chemistry today. -DVT prophylaxis with heparin subcu.
[2017-11-19 18:01] LABS: ABSOLUTE BASOPHIL COUNT 0 /CUMM (0.0-0.2); ABSOLUTE EOSINOPHIL COUNT 0.1 /CUMM (0.0-0.7); ABSOLUTE MONOCYTE COUNT 0.5 /CUMM (0.10-0.60); BASOPHIL % 0.2 % (0.0-2.0); EOSINOPHIL % 1.4 % (0-5); GRANULOCYTE % 75.7 % (42.2-75.2); MEAN CORPUSCULAR HGB 32.2 PG (27.0-31.0); MEAN CORPUSCULAR HGB CONC 34.6 G/DL (33.0-37.0); MEAN CORPUSCULAR VOLUME 93.2 FL (80.0-94.0); MEAN PLATELET VOLUME 8.5 FL (7.4-10.4); PLATELET COUNT 242 /CUMM (130-400); RBC DISTRIBUTION WIDTH 17.3 % (11.5-14.5); RED BLOOD CELL CT 3.97 /CUMM (4.70-6.10); WHITE BLOOD CELL COUNT 6.6 /CUMM (4.8-10.8)
[2017-11-19 20:45] VITALS: BP 170/64
--- NOTE | 2017-11-19 22:22 | CT SCAN REPORT ---
EXAMINATION: CT HEAD WITHOUT CONTRAST CLINICAL INFORMATION: Altered mentation COMPARISON: Multiple previous head CTs with the most recent head CT of 11/18/2017. TECHNIQUE: Contiguous axial imaging was performed from the skull base to vertex without intravenous administration of contrast. DLP: 615.95 mGy-cm FINDINGS: There is no evidence of acute intracranial hemorrhage or territorial infarction. No abnormal mass effect or midline shift is seen. Sánchez to white matter differentiation is well preserved. No extra-axial fluid collections are identified. Ventricles and sulci are age appropriate. Mild periventricular white matter low-attenuation changes are noted reflecting sequela of chronic microangiopathy. The osseous structures and soft tissues are normal. The visualized portions of the paranasal sinuses are well aerated. Trace right mastoid effusion. Left mastoid air cells are well-aerated. IMPRESSION: No acute intracranial pathology.
[2017-11-20 07:00] VITALS: BP 144/82
--- NOTE | 2017-11-20 07:21 | PN- Housestaff ---
Lyndon Syed 11/20/17 0721: Subjective Follow-up For: Altered mental status Subjective: Patient was seen and examined at the bedside. Only complaint is that he was brought in without clothes, and does not have anyone to bring him any. He needs to state that he does not know why he was brought back to the emergency department, and that the last thing he remembers before ending up here was leaving the emergency department earlier in the day. Review of Systems Constitutional: Reports: no symptoms. Objective Last 24 Hrs of Vital Signs/I&O Vital Signs Date Time Temp Pulse Resp B/P B/P Pulse O2 O2 Flow FiO2 Mean Ox Delivery Rate 11/20 0849 88 144/82 11/20 0700 98.3 88 18 144/82 97 /08 2342 170/64 11/19 2045 98.1 95 18 170/64 93 Room Air 11/19 2045 93 Room Air 11/19 1754 114 18 161/98 96 Room Air 11/19 1614 97.4 90 18 164/89 100 Room Air 11/19 1202 98.7 89 18 135/69 99 Room Air Intake & Output 11/20 1600 11/20 0800 07 0000 Intake Total 1120 500 Output Total 500 300 Balance 620 200 Intake, IV 1000 100 Intake, Oral 120 400 Output, Urine 500 300 Patient 187 lb Weight Weight Bed scale Measurement Method Physical Exam General Appearance: Alert, Oriented X3, Cooperative, No Acute Distress Skin: No Rashes, No Breakdown, No Significant Lesion Skin Temp/Moisture Exam: Warm/Dry Sepsis Skin Exam (color): Normal for Ethnicity HEENT: Atraumatic, EOMI, minimally reactive pupils Neck: Supple, No JVD, No thryomegaly Lymphatic: Cervical nl Cardiovascular: Regular Rate, Normal S1, Normal S2, No Murmurs Lungs: Clear to Auscultation, Normal Air Movement Abdomen: Normal Bowel Sounds, Soft, No Tenderness Neurological: Strength at 5/5 X4 Ext, Normal Tone, Sensation Intact, some word- finding difficulty Extremities: No Clubbing, No Cyanosis, No Edema, Normal Pulses Assessment/Plan Assessment: Patient is a 67 with past medical history significant for alcohol dependence, alcohol withdrawal seizures, diabetes type 2, hypertension, anxiety, asthma and insomnia who presented to [facility] with persistent confusion. Patient was in the ER a day prior to admission after being found sleeping in neighbor's lawn. He was found to be slow to respond and urine tox showed marijuana. He became stable and was discharged from the ER the morning of 11/19/17. After the discharge he continued to be confused. Later that day, he was brought back to the ER. He was unable to provide any history. He attempted to ambulate but was unable to safely, and remained persistently altered. He remembers leaving the ER yesterday and walking to the [facility], however he does not really know why he came back to the ER again. Decision was made to admit the patient due to unstable physical condition/toxic appearance. Patient is oriented to name/place. Problem list/plan: Differentials Acute marijuana intoxication/dehydration leading to AK I/toxic encephalopathy/ metabolic encephalopathy Given multiple admissions for alcohol-related altered mentation, is important to rule out Wernicke-Korsakoff encephalopathy 1. Toxic encephalopathy possibly in the setting of acute marijuana Watch for hypoglycemia given home insulin IV high dose thiamine and IV banana bag given once; continue to replete thiamine -Thiamine/multivitamin/folic acid -Fall precautions 2. CHEN -Agressive hydration w/ D5 normal saline -Recheck BEP 3. Lactic Acidosis -Trend lactic acid 4. Diabetes mellitus -Insulin sliding scal -Social consult to assess for safety for insulin administration 5. DVT Prophylaxis -Subcu heparin 6. Code Status -Full code Problem List: 1. Altered mental status Pain Ratin Pain Location: none Pain Goal: Remain pain free Pain Plan: na Tomorrow's Labs & Rationales: cbc and bep tomorrow Discharge Plan Discharge Disposition: home Stable for Discharge? No Anticipated Discharge (Day): unknown Larry Crabtree 11/20/17 1216: Attending MD Review Statement Attending Statement Attending MD Statement: examined this patient, discuss w/resident/PA/ACTING MANAGER, agreed w/resident/PA/ACTING MANAGER, discussed with family, reviewed EMR data (avail), discussed with nursing, discussed with case mgmt, reviewed images, amended to note Attending Assessment/Plan: Patient seen/examined bedside. He complaints of seeing flees in front of his eyes. He is confused. His inital CT head is negative. His creatinine appears to be stable around baseline considring her CKD stage 3. Patient is not diabetic. He has blood alcohol level if 78 on admission which is suggestiv of alcohol intoxication on arrival to ER. Patient is receiving iv thiamine, folci acid. Plan will be to continue current medications and consider neurology consult if no improvement. He is on CIWA and might need close eye to withdrawal symptoms for impending Dts. GI/dvt prophylaxis full code.
[2017-11-20 08:40] LABS: ABSOLUTE BASOPHIL COUNT 0 /CUMM (0.0-0.2); ABSOLUTE EOSINOPHIL COUNT 0.1 /CUMM (0.0-0.7); ABSOLUTE GRANULOCYTE CT 5.3 /CUMM (1.4-6.5); ABSOLUTE LYMPH COUNT 0.7 /CUMM (1.2-3.4); ABSOLUTE MONOCYTE COUNT 0.7 /CUMM (0.10-0.60); BASOPHIL % 0.7 % (0.0-2.0); HEMATOCRIT 33.6 % (42-52); MEAN CORPUSCULAR HGB 32.6 PG (27.0-31.0); MEAN PLATELET VOLUME 7.1 FL (7.4-10.4); PLATELET COUNT 208 /CUMM (130-400); RBC DISTRIBUTION WIDTH 17.6 % (11.5-14.5); RED BLOOD CELL CT 3.62 /CUMM (4.70-6.10); WHITE BLOOD CELL COUNT 6.8 /CUMM (4.8-10.8)
[2017-11-20 10:00] VITALS: BP 130/78
[2017-11-20 14:26] VITALS: BP 146/92
[2017-11-20 22:15] VITALS: BP 126/72
[2017-11-21] VITALS (9 sets, daily range): BP systolic 130–148; BP diastolic 66–80
--- NOTE | 2017-11-21 06:44 | PN- Housestaff ---
Lyndon Syed 11/21/17 0643: Subjective Follow-up For: Alcohol detox Complaints: hip spasms Subjective: Patient was seen and examined at the bedside. Only complaint is now that he is having spasms in his hip muscles. He states that social work talked with him, and that he is ready to discuss next steps for overcoming alcohol dependence. Review of Systems Constitutional: Reports: no symptoms. Objective Last 24 Hrs of Vital Signs/I&O Vital Signs Date Time Temp Pulse Resp B/P B/P Pulse O2 O2 Flow FiO2 Mean Ox Delivery Rate 11/21 1037 Room Air 11/21 1035 96 Room Air 11/21 1015 99.3 109 18 140/74 94 Room Air 11/21 1000 99.3 109 18 140/74 11/21 0839 98 130/66 11/21 0800 98 Room Air Room Air 11/21 0637 99.2 110 20 130/66 97 Room Air 11/20 2215 98.5 84 18 126/72 96 Room Air 11/20 1426 98.3 94 18 146/92 97 Room Air Intake & Output 11/21 1600 11/21 0800 11/21 0000 Intake Total 1000 1600 Output Total 200 350 Balance -146 097 9586 Intake, IV 1000 1000 Intake, Oral 600 Output, Urine 200 350 Physical Exam General Appearance: Alert, Oriented X3, Cooperative, No Acute Distress Skin: No Rashes, No Breakdown Skin Temp/Moisture Exam: Warm/Dry HEENT: Atraumatic, PERRLA, EOMI Neck: Supple, No JVD, No thryomegaly, +2 Carotid Pulse wo Bruit Cardiovascular: Regular Rate, Normal S1, Normal S2, No Murmurs Lungs: Clear to Auscultation, Normal Air Movement Abdomen: Normal Bowel Sounds, Soft, No Tenderness, No Hepatospenomegaly Neurological: Normal Gait, Normal Speech, Strength at 5/5 X4 Ext, Normal Tone, continuing to endorse difficulty finding words, composing thoughts Assessment/Plan Assessment: Patient is a 67 with past medical history significant for alcohol dependence, alcohol withdrawal seizures, diabetes type 2, hypertension, anxiety, asthma and insomnia who presented to [facility] with persistent confusion. Patient was in the ER a day prior to admission after being found sleeping in neighbor's lawn. He was found to be slow to respond and urine tox showed marijuana. He became stable and was discharged from the ER the morning of 11/19/17. After the discharge he continued to be confused. Later that day, he was brought back to the ER. He was unable to provide any history. He attempted to ambulate but was unable to safely, and remained persistently altered. He remembers leaving the ER yesterday and walking to the [facility], however he does not really know why he came back to the ER again. Decision was made to admit the patient due to unstable physical condition/toxic appearance. Patient is oriented to name/place. No longer experiencing hallucinations. Spoke with social work while at the bedisde. Problem list/plan: 1. Toxic encephalopathy possibly in the setting of acute marijuana Watch for hypoglycemia given home insulin IV high dose thiamine and IV banana bag given once; continue to replete thiamine -Thiamine/multivitamin/folic acid -Fall precautions -CIWA per protocol 2. CHEN-now considered to be chronic kidney disease -Stopped hydration w/ D5 normal saline -Recheck BEP 3. Lactic Acidosis -Trend lactic acid 4. Diabetes mellitus -Insulin sliding scal -Social consult to assess for safety for insulin administration 5. DVT Prophylaxis -Subcu heparin 6. Code Status -Full code Problem List: 1. Alcoholic encephalopathy Pain Ratin Pain Location: none Pain Goal: Remain pain free Pain Plan: none Tomorrow's Labs & Rationales: none BroLarry 11/21/17 1227: Attending MD Review Statement Attending Statement Attending MD Statement: examined this patient, discuss w/resident/PA/TALENT PARTNER, agreed w/resident/PA/TALENT PARTNER, discussed with family, reviewed EMR data (avail), discussed with nursing, discussed with case mgmt, reviewed images, amended to note Attending Assessment/Plan: Patient with no hallucinations today. He is scoring on CIWA 0-4 and recieved ativan overnight. Contineu with thiamine, folci acid and CIWA monitoring. SW appreciated. Discharge planning in next 24-48 hrs
[2017-11-21 08:23] LABS: ABSOLUTE BASOPHIL COUNT 0 /CUMM (0.0-0.2); ABSOLUTE EOSINOPHIL COUNT 0.1 /CUMM (0.0-0.7); ABSOLUTE GRANULOCYTE CT 6.8 /CUMM (1.4-6.5); ABSOLUTE LYMPH COUNT 0.5 /CUMM (1.2-3.4); ABSOLUTE MONOCYTE COUNT 0.7 /CUMM (0.10-0.60); BASOPHIL % 0 % (0.0-2.0); EOSINOPHIL % 0.8 % (0-5); GRANULOCYTE % 84.5 % (42.2-75.2); HEMATOCRIT 31.8 % (42-52); MEAN CORPUSCULAR HGB 32.8 PG (27.0-31.0); MEAN CORPUSCULAR VOLUME 93.8 FL (80.0-94.0); MEAN PLATELET VOLUME 7.9 FL (7.4-10.4); PLATELET COUNT 173 /CUMM (130-400); RBC DISTRIBUTION WIDTH 18.1 % (11.5-14.5)
[2017-11-21 09:07] LABS: WHITE BLOOD CELL COUNT 8.1 /CUMM (4.8-10.8)
--- NOTE | 2017-11-21 13:44 | Patient Discharge Instructions ---
Discharge Instructions General Discharge Information Special Instructions: - Please follow up with your new ladle puller referral within 1-2 weeks of discharge. - Please follow up with your primary care physician within 1-2 weeks of discharge. Inform your primary care physician of this admission to [facility]. - Continue your current medications per discharge instructions. - Please watch for these problems: Fever, Chills, Nausea, Vomiting, Shortness of Breath, Productive Cough, Chest Pain/Discomfort, Abdominal Pain, Active Bleeding or Bloody urine/stool. Diet Continue normal diet: Yes Activity Full Activity/No Limits: Yes Acute Coronary Syndrome Inclusion Criteria At DC or during hospital stay patient has or had the following: ACS DIAGNOSIS No Discharge Core Measures Meds if any: Prescribed or Continued at Discharge Meds if any: NOT Prescribed or Continued at Discharge Congestive Heart Failure Inclusion Criteria At DC or during hospital stay patient has or had the following: CHF DIAGNOSIS No Discharge Core Measures Meds if any: Prescribed or Continued at Discharge Meds if any: NOT Prescribed or Continued at Discharge Cerebrovascular accident Inclusion Criteria At DC or during hospital stay patient has or had the following: CVA/TIA Diagnosis No Discharge Core Measures Meds if any: Prescribed or Continued at Discharge Meds if any: NOT Prescribed or Continued at Discharge Venous thromboembolism Inclusion Criteria VTE Diagnosis No VTE Type NONE VTE Confirmed by (Test) NONE Discharge Core Measures - Per Current guidelines, there needs to be overlap - treatment for the first 5 days of Warfarin therapy. - If discharged on Warfarin prior to 5 days of - overlap therapy, the patient will need to be - assessed for post discharge needs including - *Post discharge parental anticoagulation - *Warfarin and/or parental anticoagulation education - *Follow up date to check INR post discharge At least 5 days overlap therapy as Inpatient No Meds if any: Prescribed or Continued at Discharge Note: Overlap Therapy is Warfarin and Anticoagulant Meds if any: NOT Prescribed or Continued at Discharge
[2017-11-22 02:53] VITALS: BP 142/79
[2017-11-22 06:22] VITALS: BP 121/72
--- NOTE | 2017-11-22 06:58 | PN- Housestaff ---
Lyndon Syed 11/22/17 0658: Subjective Follow-up For: Alcohol detox Complaints: abdominal pain before eating; difficulty breathing Subjective: Patient was seen and examined at the bedside. Patient just woken up when approached, and needed to urinate. This physician left the room and came back later. At that time the patient was more awake, had no complaints, and just wanted to know when his date of planned discharge was. Patient states he is still having a little trouble maintaining. Review of Systems Constitutional: Reports: no symptoms. Respiratory: Reports: short of breath (hx of asthma, rec albuterol). Gastrointestinal: Reports: abdominal pain (before eating). Objective Last 24 Hrs of Vital Signs/I&O Vital Signs Date Time Temp Pulse Resp B/P B/P Pulse O2 O2 Flow FiO2 Mean Ox Delivery Rate 11/22 1000 98.9 106 18 122/70 11/22 0852 98 Room Air 11/22 0838 108 121/72 11/22 0622 99.0 108 18 121/72 98 11/22 0253 98.5 106 18 142/79 95 11/22 0000 Room Air 11/21 2303 99.4 / 2246 101.8 121 18 148/80 95 07/ 1901 95 Room Air / 1900 99.0 108 18 142/76 07/10 1800 99.0 108 18 148/76 /10 1600 99.9 102 18 146/72 07/10 1600 97 Room Air Room Air 11/21 1535 102 146/72 07/10 1425 99.7 115 20 144/74 94 Room Air Intake & Output 11/22 1600 11/22 0800 11/22 0000 Intake Total 480 Output Total 325 Balance 155 Intake, Oral 480 Output, Urine 325 Physical Exam General Appearance: Alert, Oriented X3, Cooperative, No Acute Distress Skin: No Rashes, No Breakdown Skin Temp/Moisture Exam: Warm/Dry HEENT: Atraumatic, PERRLA, EOMI Neck: Supple, No JVD, No thryomegaly Cardiovascular: Regular Rate, Normal S1, Normal S2, No Murmurs Lungs: Clear to Auscultation, Normal Air Movement Abdomen: Soft, No Tenderness, No Hepatospenomegaly Neurological: Normal Gait, Normal Speech, Strength at 5/5 X4 Ext, Normal Tone, difficulty "putting thoughts together" demonstrated by circuitous and perseverative thought content Orders CIWA Score (last 24 hrs): 0-10; received 3mg ativan overnight Assessment/Plan Assessment: Patient is a 67 with past medical history significant for alcohol dependence, alcohol withdrawal seizures, diabetes type 2, hypertension, anxiety, asthma and insomnia who presented to [facility] with persistent confusion. Patient was in the ER a day prior to admission after being found sleeping in neighbor's lawn. He was found to be slow to respond and urine tox showed marijuana. He became stable and was discharged from the ER the morning of 11/19/17. After the discharge he continued to be confused. Later that day, he was brought back to the ER. He was unable to provide any history. He attempted to ambulate but was unable to safely, and remained persistently altered. He remembers leaving the ER yesterday and walking to the [facility], however he does not really know why he came back to the ER again. Decision was made to admit the patient due to unstable physical condition/toxic appearance. Patient is oriented to name/place. No longer experiencing hallucinations. Spoke with social work while at the [facility]. Problem list/plan: 1. Toxic encephalopathy -in the setting of acute marijuana and alcohol intoxication Watch for hypoglycemia given home insulin IV high dose thiamine and IV banana bag given once; continue to replete thiamine and MVI -Thiamine/multivitamin/folic acid -Fall precautions -CIWA per protocol; scoring 0-10 overnight and received 3mg ativan -Recheck CBC 2. CKD -Stopped hydration w/ D5 normal saline -Recheck BEP 3. Lactic Acidosis -Resolved 4. Diabetes mellitus -Insulin sliding scale -Appreciate case management plan to send VNA to assess insulin self- administration 5. Asthma -Appreciate TR consultation; continue patient on albuterol 5. DVT Prophylaxis -Subcu heparin 6. Code Status -Full code Problem List: 1. Alcoholic encephalopathy 2. ETOH abuse 3. Chronic kidney disease (CKD) 4. Diabetes Pain Ratin Pain Location: none Pain Goal: Remain pain free Pain Plan: none Tomorrow's Labs & Rationales: CBC and BEP for following alcohol withdrawal symptoms; HgA1c to assess baseline glucose control Larry Crabtree 11/22/17 1125: Attending Review Statement Attending Statement Attending MD Statement: examined this patient, discuss w/resident/PA/[employer], agreed w/resident/PA/[employer]ARLAND [employer]KER, discussed with family, reviewed EMR data (avail), discussed with nursing, discussed with case mgmt, reviewed images, amended to note Attending Assessment/Plan: Patient aaox 3 oreinted. Insomnia present, anxiety+. He is scoring on CIWA 0-10 and recieved ativan overnight. Continue with thiamine, folic acid and CIWA monitoring. Diabetes mellitus uncontrolled with chronic kdiney disease on insulin. Follow PCP as outpatient, Chech hba1c levels. SW appreciated.
[2017-11-22 09:14] LABS: ABSOLUTE BASOPHIL COUNT 0 /CUMM (0.0-0.2); ABSOLUTE EOSINOPHIL COUNT 0 /CUMM (0.0-0.7); ABSOLUTE GRANULOCYTE CT 5.9 /CUMM (1.4-6.5); ABSOLUTE LYMPH COUNT 0.5 /CUMM (1.2-3.4); ABSOLUTE MONOCYTE COUNT 0.9 /CUMM (0.10-0.60); BASOPHIL % 0.2 % (0.0-2.0); EOSINOPHIL % 0.2 % (0-5); GRANULOCYTE % 80.9 % (42.2-75.2); HEMATOCRIT 31.5 % (42-52); MEAN CORPUSCULAR HGB 32.7 PG (27.0-31.0); MEAN CORPUSCULAR HGB CONC 35.3 G/DL (33.0-37.0); MEAN CORPUSCULAR VOLUME 92.6 FL (80.0-94.0); MEAN PLATELET VOLUME 7.8 FL (7.4-10.4); PLATELET COUNT 179 /CUMM (130-400); RBC DISTRIBUTION WIDTH 18.2 % (11.5-14.5); RED BLOOD CELL CT 3.41 /CUMM (4.70-6.10); WHITE BLOOD CELL COUNT 7.3 /CUMM (4.8-10.8)
[2017-11-22 10:00] VITALS: BP 122/70
[2017-11-22 14:17] VITALS: BP 120/70
[2017-11-22 21:20] VITALS: BP 112/64
[2017-11-23 06:15] VITALS: BP 122/70
--- NOTE | 2017-11-23 06:51 | PN- Housestaff ---
Lyndon Syed 11/23/17 0651: Subjective Follow-up For: Alcohol detox Complaints: difficulty urinating, complains of continued difficulty breathing Subjective: Patient was seen and examined at the bedside. No acute events overnight save that additional Ativan was given for CIWA=8. Patient complains of difficulty breathing, wants albuterol inhaler. Expressed to medical student alone that he was having problem urinating since admission to the hospital. Review of Systems Constitutional: Reports: no symptoms. Respiratory: Reports: wheezing. Genitourinary: Reports: hesitation, urgency. Objective Last 24 Hrs of Vital Signs/I&O Vital Signs Date Time Temp Pulse Resp B/P B/P Pulse O2 O2 Flow FiO2 Mean Ox Delivery Rate 11/23 0856 98.1 93 20 122/70 11/23 0851 96 Room Air Room Air 11/23 0615 98.1 93 20 122/70 96 Room Air 11/23 0000 Room Air 11/22 2120 98.3 88 18 112/64 96 11/22 1621 Room Air 11/22 1417 98.1 90 18 120/70 96 Room Air Intake & Output 11/23 1600 12 0800 11/23 0000 Intake Total Output Total 200 400 Balance -200 -400 Output, Urine 200 400 Physical Exam General Appearance: Alert, Oriented X3, Cooperative, No Acute Distress Skin: No Rashes, No Breakdown Skin Temp/Moisture Exam: Warm/Dry HEENT: Atraumatic, PERRLA, EOMI Neck: Supple, No JVD, No thryomegaly Cardiovascular: Regular Rate, Normal S1, Normal S2, No Murmurs Lungs: diffuse bilateral inspiratory and expiratory wheezing Abdomen: Soft, No Tenderness, No Hepatospenomegaly Neurological: Normal Gait, Normal Speech, Strength at 5/5 X4 Ext, Normal Tone, Sensation Intact Extremities: No Clubbing, No Cyanosis, No Edema Assessment/Plan Assessment: Patient is a 67 with past medical history significant for alcohol dependence, alcohol withdrawal seizures, diabetes type 2, hypertension, anxiety, asthma and insomnia who presented to [facility] with persistent confusion. Patient was in the ER a day prior to admission after being found sleeping in neighbor's lawn. He was found to be slow to respond and urine tox showed marijuana. He became stable and was discharged from the ER the morning of 11/19/17. After the discharge he continued to be confused. Later that day, he was brought back to the ER. He was unable to provide any history. He attempted to ambulate but was unable to safely, and remained persistently altered. He remembers leaving the ER yesterday and walking to the [facility], however he does not really know why he came back to the ER again. Decision was made to admit the patient due to unstable physical condition/toxic appearance. Social work is in the process of requesting home help nurses for patient, even in the context of his staying at the [facility]. Problem list/plan: 1. Toxic encephalopathy -in the setting of acute marijuana and alcohol intoxication Watch for hypoglycemia given home insulin IV high dose thiamine and IV banana bag given once; continue to replete thiamine and MVI -Thiamine/multivitamin/folic acid -Fall precautions -CIWA per protocol; scoring 0-10 overnight and received 3mg ativan -Recheck CBC 2. CKD -Stopped hydration w/ D5 normal saline -Recheck BEP 3. Lactic Acidosis -Resolved 4. Diabetes mellitus -Insulin sliding scale -Appreciate case management plan to send VNA to assess insulin self- administration 5. Asthma -Appreciate TRC consultation; continue patient on albuterol 5. DVT Prophylaxis -Subcu heparin 6. Code Status -Full code 7. Disposition -Awaiting final word from social work -Expect discharge from hospital tomorrow Problem List: 1. Alcoholic encephalopathy 2. Alcohol use 3. Chronic renal insufficiency Pain Ratin Pain Location: none Pain Goal: Remain pain free Pain Plan: none Tomorrow's Labs & Rationales: cbc, bep Larry Crabtree 11/23/17 1124: Attending MD Review Statement Attending Statement Attending MD Statement: examined this patient, discuss w/resident/PA/PAPERHANGER PIPE, agreed w/resident/PA/PAPERHANGER PIPE, discussed with family, reviewed EMR data (avail), discussed with nursing, discussed with case mgmt, reviewed images, amended to note Attending Assessment/Plan: Patient aaox 3 oreinted. Anxiety+. Ativan taper. Continue with thiamine, folic acid and CIWA monitoring. He is reluctant to join alcohol anonymous group. hE UNDERSTANDS IF HE CONTINUES TO DRINK HE CAN . Diabetes mellitus controlled with chronic kdiney disease on insulin. Follow PCP as outpatient, Hba1c 6.1 this admission. Please consult endocrinology if we can discontinue his insulin. Urinary incontinence: check bladder scan and empiric flomax. SW appreciated.
--- NOTE | 2017-11-23 07:03 | Discharge Summary ---
Visit Information Visit Dates Admission Date: 11/19/17 Discharge Date: 11/24/17 Hospital Course Course Attending Physician: Larry Crabtree MD Primary Care Physician: Jarrod ELIZONDO,[facility] Course: Patient is a 67 with past medical history significant for alcohol dependence, alcohol withdrawal seizures, diabetes type 2, hypertension, anxiety, asthma and insomnia who presented to [facility] with persistent confusion. Patient was in the ER a day prior to admission after being found sleeping in neighbor's lawn. He was found to be slow to respond and urine tox showed marijuana. He became stable and was discharged from the ER the morning of 11/19/17. After the discharge he continued to be confused. Later that day, he was brought back to the ER. He was unable to provide any history. He attempted to ambulate but was unable to safely, and remained persistently altered. He remembers leaving the ER yesterday and walking to the [facility], however he does not really know why he came back to the ER again. Decision was made to admit the patient due to unstable physical condition/toxic appearance. Patient was followed on CIWA protocol during his admission, scoring principally for anxiety. He also received several nebulizer treatments for his asthma. Despite attempts from social work to identify opportunities for him to receive additional help at home, the patient eventually refused all. Allergies: Coded Allergies: No Known Allergies (07/20/17) Pertinent Lab Results: SERVICE DATE: 11/19/17- EXAM TYPE: CAT - CT HEAD WO IV CONTRAST IMPRESSION: No acute intracranial pathology. Disposition Summary Disposition Principal Diagnosis: Alcohol detox Additional Diagnosis: Chronic kidney disease Discharge Disposition: home or self care Discharge Instructions General Discharge Information Code Status: Full Code Patient's Diet: Regular Patient's Activity: As tolerated Follow-Up Instructions/Appts: - Please follow up with your new manager ed referral within 1-2 weeks of discharge. - Please follow up with your primary care physician within 1-2 weeks of discharge. Inform your primary care physician of this admission to [facility]. - Continue your current medications per discharge instructions. - Please watch for these problems: Fever, Chills, Nausea, Vomiting, Shortness of Breath, Productive Cough, Chest Pain/Discomfort, Abdominal Pain, Active Bleeding or Bloody urine/stool. Medications at Discharge Discharge Medications: Stop taking the following medications: Insulin Aspart, Recombinant (Novolog Flexpen) 100 UNIT/ML INSULN.PEN Inject into fatty tissue 3 TIMES DAILY BEFORE MEALS Insulin Detemir (Levemir Flextouch) 100 UNIT/ML (3 ML) INSULN.PEN Inject into fatty tissue Every night Azithromycin (Zithromax) 500 MG TABLET ORAL DAILY Qty = 5 Prednisone (Prednisone) 10 MG TABLET ORAL As Directed Qty = 19 Zolpidem Tartrate (Zolpidem Tartrate) 10 MG TABLET ORAL Every night as needed Qty = 90 Continue taking these medications: Albuterol Sulfate (Proair Hfa) 90 MCG HFA.AER.AD 2 Puff Inhale through mouth EVERY 4-6 HOURS NEEDED as needed for wheezing Qty = 1 Comments: Last Taken: 11/24/17 Time: 8:00 AM Colchicine (Colchicine) 0.6 MG TABLET 1 Tablet ORAL DAILY Qty = 30 Comments: Last Taken: 11/24/17 Time: 8:00 AM Trazodone HCl (Trazodone HCl) 100 MG TABLET 1 Tablet ORAL Every night Comments: NOT GIVEN IN HOSPITAL Docusate Sodium (Colace) 100 MG CAPSULE 1 Capsule ORAL TWICE DAILY Qty = 60 Comments: NOT GIVEN IN HOSPITAL Sennosides (Senna) 8.6 MG TABLET 2 Tablet ORAL DAILY as needed for CONSTIPATION Comments: NOT GIVEN IN THE HOSPITAL Multivitamin (Daily Multiple Vitamin) 1 EACH TABLET 1 Tablet ORAL DAILY Qty = 30 Comments: Last Taken: 11/24/17 Time: 8:00 AM Benzonatate (Tessalon Perle) 100 MG CAPSULE 1 Capsule ORAL THREE TIMES DAILY as needed for COUGH Qty = 21 Comments: NOT GIVEN IN HOSPITAL Lorazepam (Lorazepam) 1 MG TABLET 1 Tablet ORAL THREE TIMES DAILY Qty = 100 Comments: Last Taken: 11/24/17 Time: 5:30 AM Lisinopril (Lisinopril) 10 MG TABLET 1 Tablet ORAL DAILY Qty = 90 Comments: Last Taken: 11/24/17 Time: 8:00 AM Start taking the following new medications: Tamsulosin HCl (Flomax) 0.4 MG CAP.ER.24H 0.4 Milligram ORAL DAILY Qty = 30 No Refills Instructions: . Comments: Last Taken: 11/24/17 Time: 8:00 AM Repaglinide (Prandin) 1 MG TABLET 0.5 Milligram ORAL BEFORE MEALS Qty = 30 No Refills Instructions: . Comments: Last Taken: 7/13/18 Time: 11:30 AM Copies To: Abdirashid Garay DC
[2017-11-23 08:17] LABS: ABSOLUTE BASOPHIL COUNT 0 /CUMM (0.0-0.2); ABSOLUTE EOSINOPHIL COUNT 0.1 /CUMM (0.0-0.7); ABSOLUTE GRANULOCYTE CT 4.7 /CUMM (1.4-6.5); ABSOLUTE LYMPH COUNT 0.5 /CUMM (1.2-3.4); BASOPHIL % 0.1 % (0.0-2.0); EOSINOPHIL % 1.1 % (0-5); GRANULOCYTE % 75.1 % (42.2-75.2); HEMATOCRIT 32.6 % (42-52); MEAN CORPUSCULAR HGB 32.4 PG (27.0-31.0); MEAN CORPUSCULAR HGB CONC 34.5 G/DL (33.0-37.0); MEAN CORPUSCULAR VOLUME 93.7 FL (80.0-94.0); MEAN PLATELET VOLUME 7.8 FL (7.4-10.4); PLATELET COUNT 187 /CUMM (130-400); RBC DISTRIBUTION WIDTH 18.9 % (11.5-14.5); RED BLOOD CELL CT 3.48 /CUMM (4.70-6.10); WHITE BLOOD CELL COUNT 6.3 /CUMM (4.8-10.8)
[2017-11-23] MEDS ORDERED: FLOMAX0.4 M1 PO (09:22)
[2017-11-23 12:00] VITALS: BP 136/70
[2017-11-23 12:50] VITALS: BP 136/70
[2017-11-23 14:22] VITALS: BP 118/80
--- NOTE | 2017-11-23 16:00 | Cons- Endocrinology ---
General Information and HPI Consulting Request Date of Consult: 11/23/17 Requested By: medical team Reason for Consult: management of diabetes type 2. Source of Information: patient, old records Exam Limitations: poor historian History of Present Illness: 67 year old male with PMH significant for alcohol dependence, alcohol withdrawal seizures, diabetes type 2, chronic renal insufficiency, hypertension, anxiety, asthma and insomnia presented to [facility] with persistent confusion. He was admitted for detox. He used to take Lantus 14 units daily, Humalog on an average 4 units before meals prior to admission. He was having hypoglycemia.He lost significant amount of weight. His repeat HbA1c was 6.1%. In hospital, he is on Novolog coverage and his FSGs were 133, 181, 161, 169 and 131. Allergies/Medications Allergies: Coded Allergies: No Known Allergies (07/20/17) Home Med List: Albuterol Sulfate (Proair Hfa) 90 MCG HFA.AER.AD 2 PUF INH Q4-6 PRN PRN wheezing Azithromycin (Zithromax) 500 MG TABLET 1 TAB PO DAILY BRONCHITIS Benzonatate (Tessalon Perle) 100 MG CAPSULE 1 CAP PO TID PRN COUGH Colchicine 0.6 MG TABLET 1 TAB PO DAILY GOUT (Reported) Docusate Sodium (Colace) 100 MG CAPSULE 1 CAP PO BID CONSTIPATION (Reported) Insulin Aspart, Recombinant (Novolog Flexpen) 100 UNIT/ML INSULN.PEN 5 UNITS SC TIDAC DIABETES (Reported) Insulin Detemir (Levemir Flextouch) 100 UNIT/ML (3 ML) INSULN.PEN 14 UNIT SC QPM DIABETES (Reported) Lisinopril 10 MG TABLET 1 TAB PO DAILY HIGH BLOOD PRESSURE (Reported) Lorazepam 1 MG TABLET 1 TAB PO TID ANXIETY (Reported) Multivitamin (Daily Multiple Vitamin) 1 EACH TABLET 1 TAB PO DAILY Supplement Prednisone 10 MG TABLET 1 TAB PO AD INFLAMMATION Sennosides (Senna) 8.6 MG TABLET 2 TAB PO DAILY PRN CONSTIPATION (Reported) Tamsulosin HCl (Flomax) 0.4 MG CAP.ER.24H 0.4 MG PO DAILY URINARY DIFFICULTY Trazodone HCl 100 MG TABLET 1 TAB PO QPM SLEEP (Reported) Zolpidem Tartrate 10 MG TABLET 1 TAB PO QPMP SLEEP HELP (Reported) Review of Systems Review of Systems Constitutional: Reports: see HPI (still feels anxious). Cardiovascular: Denies: chest pain, palpitations. Respiratory: Denies: cough, short of breath. GI: Denies: abdominal pain. Musculoskeletal: Denies: back pain. Hematologic/Endocrine: Denies: polyuria, polydipsia. 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 FH: diabetes mellitus BROTHER FH: CAD (coronary artery disease) Psychosocial History Where Do You Live? Other Who Do You Live With? self Services at Home: None Primary Language: Tamazight Smoking Status: Never Smoked ETOH Use: alcoholic Illicit Drug Use: denies illicit drug use Living Will? no Power of Syrup Mixer/HCP? no Functional Ability ADLs Independent: dressing, eating, toileting, bathing. Ambulation: cane IADLs Independent: shopping, housework, finances, food prep, telephone, transportation , medication admin. Exam & Diagnostic Data Last 24 Hrs of Vital Signs/I&O Vital Signs Date Time Temp Pulse Resp B/P B/P Pulse O2 O2 Flow FiO2 Mean Ox Delivery Rate 11/23 1422 99.0 91 18 118/80 95 Room Air 11/23 1250 98.6 92 20 136/70 96 Room Air Room Air 11/23 1200 98.6 92 20 136/70 / 1104 122/70 11/23 0856 98.1 93 20 122/70 / 0851 96 Room Air Room Air 11/23 0615 98.1 93 20 122/70 96 Room Air 11/23 0000 Room Air 11/22 2120 98.3 88 18 112/64 96 11/22 1621 Room Air Intake & Output 11/23 1600 /12 0800 / 0000 Intake Total 500 Output Total 200 200 400 Balance 300 -200 -400 Intake, Oral 500 Output, Urine 200 200 400 Physical Exam General Appearance: no apparent distress Neck: normal inspection, supple Respiratory: lungs clear Cardiovascular: regular rate/rhythm Gastrointestinal: soft, non-tender Extremities: no edema Labs/Rafal Results: Laboratory Tests 11/23 11/23 1545 0640 Chemistry Sodium (137 - 145 mmol/L) 142 Potassium (3.5 - 5.1 mmol/L) 3.8 Chloride (98 - 107 mmol/L) 102 Carbon Dioxide (22 - 30 mmol/L) 27 Anion Gap (5 - 16) 13 BUN (9 - 20 mg/dL) 11 Creatinine (0.7 - 1.2 mg/dL) 1.8 H Estimated GFR (>60 ml/min) 38 L BUN/Creatinine Ratio (7 - 25 %) 6.1 L Troponin I Pending Hematology CBC w Diff NO MAN DIFF REQ WBC (4.8 - 10.8 /CUMM) 6.3 RBC (4.70 - 6.10 /CUMM) 3.48 L Hgb (14.0 - 18.0 G/DL) 11.3 L Hct (42 - 52 %) 32.6 L MCV (80.0 - 94.0 FL) 93.7 MCH (27.0 - 31.0 PG) 32.4 H MCHC (33.0 - 37.0 G/DL) 34.5 RDW (11.5 - 14.5 %) 18.9 H Plt Count (130 - 400 /CUMM) 187 MPV (7.4 - 10.4 FL) 7.8 Gran % (42.2 - 75.2 %) 75.1 Lymphocytes % (20.5 - 51.1 %) 7.7 L Monocytes % (1.7 - 9.3 %) 16.0 H Eosinophils % (0 - 5 %) 1.1 Basophils % (0.0 - 2.0 %) 0.1 Absolute Granulocytes (1.4 - 6.5 /CUMM) 4.7 Absolute Lymphocytes (1.2 - 3.4 /CUMM) 0.5 L Absolute Monocytes (0.10 - 0.60 /CUMM) 1.0 H Absolute Eosinophils (0.0 - 0.7 /CUMM) 0.1 Absolute Basophils (0.0 - 0.2 /CUMM) 0 Assessment/Plan Assessment/Plan 67 year old male with PMH significant for alcohol dependence, alcohol withdrawal seizures, diabetes type 2, chronic renal insufficiency, hypertension, anxiety, asthma and insomnia presented to [facility] with persistent confusion. He was admitted for detox. His glucose level has been stable. Plan: 1. stop Novolog coverage; 2. start prandin 0.5 mg before meals x 3 times a day; hold prandin if he skips meal; 3. monitor FSGs. will follow. Consult Acknowledgment - Thank you for your consult request.
[2017-11-23 22:02] VITALS: BP 137/73
--- NOTE | 2017-11-24 07:05 | PN- Housestaff ---
Lyndon Syed 11/24/17 0705: Subjective Follow-up For: Alcohol detox Complaints: no complaints Subjective: Patient was seen and examined at the [facility]. No acute events overnight. Patient has been tapered to home Ativan dose of 1mg bid. Planned discharge this afternoon. Review of Systems Constitutional: Reports: no symptoms. Gastrointestinal: Reports: no symptoms. Objective Last 24 Hrs of Vital Signs/I&O Vital Signs Date Time Temp Pulse Resp B/P B/P Pulse O2 O2 Flow FiO2 Mean Ox Delivery Rate 11/24 0809 92 116/64 11/24 0809 92 116/64 11/24 0710 98.4 93 18 112/60 99 11/24 0000 Room Air 11/23 2202 98.6 97 20 137/73 97 Room Air 11/23 1937 95 Room Air 11/23 1422 99.0 91 18 118/80 95 Room Air 11/23 1250 98.6 92 20 136/70 96 Room Air Room Air 11/23 1200 98.6 92 20 136/70 11/23 1104 122/70 Intake & Output 11/24 1600 11/24 0800 11/24 0000 Intake Total 480 490 Output Total Balance 480 490 Intake, IV 0 10 Intake, Oral 480 480 Number 0 0 Bowel Movements Physical Exam General Appearance: Alert, Oriented X3, Cooperative, No Acute Distress Skin: No Rashes, No Breakdown Skin Temp/Moisture Exam: Warm/Dry HEENT: Atraumatic, PERRLA, EOMI Neck: Supple, No JVD, No thryomegaly Cardiovascular: Regular Rate, Normal S1, Normal S2, No Murmurs Lungs: Clear to Auscultation, Normal Air Movement Abdomen: Soft, No Tenderness, No Hepatospenomegaly Neurological: Normal Speech, Strength at 5/5 X4 Ext, Normal Tone, Sensation Intact Extremities: No Clubbing, No Cyanosis, No Edema Assessment/Plan Assessment: Patient is a 67 with past medical history significant for alcohol dependence, alcohol withdrawal seizures, diabetes type 2, hypertension, anxiety, asthma and insomnia who presented to [facility] with persistent confusion. Patient was in the ER a day prior to admission after being found sleeping in neighbor's lawn. He was found to be slow to respond and urine tox showed marijuana. He became stable and was discharged from the ER the morning of 11/19/17. After the discharge he continued to be confused. Later that day, he was brought back to the ER. He was unable to provide any history. He attempted to ambulate but was unable to safely, and remained persistently altered. He remembers leaving the ER yesterday and walking to the [facility], however he does not really know why he came back to the ER again. Decision was made to admit the patient due to unstable physical condition/toxic appearance. Social work is in the process of requesting home help nurses for patient, even in the context of his staying at the [facility]. Problem list/plan: 1. Toxic encephalopathy -in the setting of acute marijuana and alcohol intoxication Watch for hypoglycemia given home insulin IV high dose thiamine and IV banana bag given once; continue to replete thiamine and MVI -Thiamine/multivitamin/folic acid -Fall precautions -CIWA per protocol; scoring 0-10 overnight and received 3mg ativan -Recheck CBC 2. CKD -Stopped hydration w/ D5 normal saline -Recheck BEP 3. Lactic Acidosis -Resolved 4. Diabetes mellitus -Insulin sliding scale -Appreciate case management plan to send VNA to assess insulin self- administration 5. Asthma -Appreciate [facility] consultation; continue patient on albuterol 5. DVT Prophylaxis -Subcu heparin 6. Code Status -Full code 7. Disposition -Patient declined social welfare research worker help -Discharge this afternoon Problem List: 1. Alcohol intoxication 2. Chronic kidney disease (CKD) Pain Ratin Pain Location: none Pain Goal: Remain pain free Pain Plan: none Tomorrow's Labs & Rationales: none, discharged Discharge Plan Discharge Disposition: home Stable for Discharge? Yes Anticipated Discharge (Day): today If Discharged Today/In 24 Hrs: enter [facility] discharge ord Larry Crabtree 11/24/17 1140: Attending MD Review Statement Attending Statement Attending MD Statement: examined this patient, discuss w/resident/PA/BRACELET FORMER, agreed w/resident/PA/BRACELET FORMER, discussed with family, reviewed EMR data (avail), discussed with nursing, discussed with case mgmt, reviewed images, amended to note Attending Assessment/Plan: Patient aaox 3 oreinted. He is reluctant to join alcohol anonymous group. hE UNDERSTANDS IF HE CONTINUES TO DRINK HE CAN . Diabetes mellitus controlled with chronic kdiney disease on insulin. Hba1c 6.1 this admission. Appreciate endocrinology discontinued insulin as risk of hypoglycemia with his alcohol use and liver dysfucntion. Started on oral hypoglycemics. Urinary incontinence empiric flomax, improved. SW appreciated. FOLLOW UP PCP in 1 week of discharge Endocrinology in 1-2 weeks of d/c.
[2017-11-24 07:10] VITALS: BP 112/60
[2017-11-24] MEDS ORDERED: PRANDIN1 M1 PO ×2 (08:04→11:26)
[2017-11-24 08:09] VITALS: BP 116/64
--- NOTE | 2017-11-24 08:45 | PN- Diabetes ---
Assessment/Plan Diabetes Assessment: 67 year old male with PMH significant for alcohol dependence, alcohol withdrawal seizures, diabetes type 2, chronic renal insufficiency, hypertension, anxiety, asthma and insomnia presented to [facility] with persistent confusion. He was admitted for detox. His glucose level has been stable. Novolog coverage was discontinued and he was put on prandin 0.5 mg before meals x 3 times a day. However, prandin wasn't available yesterday. As per team, patient should be able to take the first dose of prandin right befre lunch today. His FSGs were 131, 206, 172, 244 and 184. He took Novolog 4 units x 1 before breakfast. Plan: continue monitoring his FSGs; continue prandin 0.5 mg before meals x 3 times a day; hold prandin if he skips meal; recommend f/u in office after discharge. Subjective Subjective: He feels well this morning. Objective Last 24 Hrs of Vital Signs/I&O Vital Signs Date Time Temp Pulse Resp B/P B/P Pulse O2 O2 Flow FiO2 Mean Ox Delivery Rate 11/24 0809 92 116/64 11/24 0809 92 116/64 11/24 0710 98.4 93 18 112/60 99 11/24 0000 Room Air 11/23 2202 98.6 97 20 137/73 97 Room Air 11/23 1937 95 Room Air 11/23 1422 99.0 91 18 118/80 95 Room Air 11/23 1250 98.6 92 20 136/70 96 Room Air Room Air 11/23 1200 98.6 92 20 136/70 11/23 1104 122/70 11/23 0856 98.1 93 20 122/70 11/23 0851 96 Room Air Room Air Intake & Output 11/24 1600 11/24 0800 11/24 0000 Intake Total 480 490 Output Total Balance 480 490 Intake, IV 0 10 Intake, Oral 480 480 Number 0 0 Bowel Movements
[2017-11-24] MEDS ORDERED: FLOMAX0.4 M1 PO (11:26)
== END 2017-11-24 12:27 | DRG 92 ==
LOC: ERH 11:38 → ERHI 15:55 → 2NB 15:55 → ENRESERV 19:02 → ENTRNSPT 20:36 → EDTRNSPTSTS 20:46 → 2NB 20:54 → CMPTRNSPT 21:09 → 2NB 11-20 07:46 → ENPENDDIS 11-24 10:28 → ENTRNSPT 11-24 12:03 → EDTRNSPTSTS 11-24 12:22 → EDTRNSPT 11-24 12:22 → 2NB 11-24 12:27 → CMPTRNSPT 11-24 12:41
PROVIDERS: Emergency Medicine; General Practice
DX: G92 Toxic encephalopathy (principal); E87.2 Acidosis; K86.1 Other chronic pancreatitis; E86.0 Dehydration; F10.229 Alcohol dependence with intoxication, unspecified; Y90.3 Blood alcohol level of 60-79 mg/100 ml; I12.9 Hypertensive chronic kidney disease with stage 1 through stage 4 chronic kidney disease, or unspecified chronic kidney disease; E11.22 Type 2 diabetes mellitus with diabetic chronic kidney disease; N18.3 Chronic kidney disease, stage 3 (moderate); Z79.4 Long term (current) use of insulin; F41.9 Anxiety disorder, unspecified; G47.00 Insomnia, unspecified; J45.909 Unspecified asthma, uncomplicated; F04 Amnestic disorder due to known physiological condition; R25.2 Cramp and spasm; F12.129 Cannabis abuse with intoxication, unspecified
CPT/HCPCS: 2NBP; 36415; 36592; 71045; 80307; 81001; 82436; 84425; 93005; 93010; 96374; 96375; G0480; J2405; J2765; J3490; J7042; J7060

== ENCOUNTER 2017-11-26 00:57 | Observation (INO) | payer OTHER, MEDICARE ==
[~2017-11-26] VITALS: Ht 175.3 cm; Wt 84.9 kg
[~2017-11-26 00:57] MED LIST changes: +FLOMAX0.4 M1 PO; +PRANDIN1 M1 PO
--- NOTE | 2017-11-26 01:02 | ED GENERAL ADULT ---
See Addendum History of Present Illness General Chief Complaint: ETOH/Drug Related Complaint Stated Complaint: BIBA ETOH Source: EMS Exam Limitations: intoxication Vital Signs & Intake/Output Vital Signs & Intake/Output Vital Signs Date Time Temp Pulse Resp B/P B/P Pulse O2 O2 Flow FiO2 Mean Ox Delivery Rate 11/26 0145 98.1 78 18 109/56 97 Room Air Allergies Coded Allergies: No Known Allergies (07/20/17) Reconcile Medications Albuterol Sulfate (Proair Hfa) 90 MCG HFA.AER.AD 2 PUF INH Q4-6 PRN PRN wheezing Benzonatate (Tessalon Perle) 100 MG CAPSULE 1 CAP PO TID PRN COUGH Colchicine 0.6 MG TABLET 1 TAB PO DAILY GOUT (Reported) Docusate Sodium (Colace) 100 MG CAPSULE 1 CAP PO BID CONSTIPATION (Reported) Lisinopril 10 MG TABLET 1 TAB PO DAILY HIGH BLOOD PRESSURE (Reported) Lorazepam 1 MG TABLET 1 TAB PO TID ANXIETY (Reported) Multivitamin (Daily Multiple Vitamin) 1 EACH TABLET 1 TAB PO DAILY Supplement Repaglinide (Prandin) 1 MG TABLET 0.5 MG PO BEFORE MEALS Pre-diabetes . Sennosides (Senna) 8.6 MG TABLET 2 TAB PO DAILY PRN CONSTIPATION (Reported) Tamsulosin HCl (Flomax) 0.4 MG CAP.ER.24H 0.4 MG PO DAILY URINARY DIFFICULTY . Trazodone HCl 100 MG TABLET 1 TAB PO QPM SLEEP (Reported) Triage Nurses Notes Reviewed? yes Unable To Obtain Hx Due To: patient intoxication HPI: 67-year-old man with multiple medical problems significant for history of bedbugs, EtOH abuse/withdrawal/dependence, EtOH withdrawal seizures, anxiety and depression in by ambulance after neighbors called EMS. Patient was reportedly intoxicated and found by EMS and his home sitting on his bed. Patient was seen in the [place] ED on 11/19/17 after being found sleeping on someone else's lawn after ingesting alcohol. He was admitted to the hospital until he was discharged on 11/23/17 after being treated for toxic encephalopathy and EtOH withdrawal and discharged home. Presently patient is intoxicated and unable to offer subjective complaints or review of systems. Past History Travel History Traveled to [place] past 21 day No Medical History Any Pertinent Medical History? see below for history Neurological: ALCOHOL WITHDRAWAL SEIZUR *06/15/16- PT DENIES HX OF ETOH W/ SEIZURES* EENT: NONE, allergies Cardiovascular: hypertension Respiratory: asthma, COPD, pneumonia Gastrointestinal: pancreatitis Hepatic: NONE Renal: NONE Musculoskeletal: NONE, gout Psychiatric: alcohol dependence, anxiety, depression, insomnia Endocrine: DM Blood Disorders: NONE Cancer(s): NONE PROCESS CONTROL ENGINEER/Reproductive: NONE History of MRSA: No History of VRE: No History of CDIFF: No Tetanus Vaccine: 02/04/05 Surgical History Surgical History: appendectomy, Tonsillectomy Psychosocial History Who do you live with Other (see notes) Services at Home None What is your primary language Samoan Family History Family History, If Any: FATHER, , Age 60+; Cause: Myocardial infarct. FH: diabetes mellitus BROTHER FH: CAD (coronary artery disease) Hx Contributory? No Review of Systems Review of Systems Constitutional: Denies: fever. EENTM: Reports: no symptoms. Respiratory: Reports: no symptoms. Cardiovascular: Reports: no symptoms. GI: Reports: no symptoms. Genitourinary: Reports: no symptoms. Musculoskeletal: Reports: no symptoms. Skin: Reports: no symptoms. Neurological/Psychological: Reports: no symptoms. Hematologic/Endocrine: Reports: no symptoms. Immunologic/Allergic: Reports: no symptoms. Comments Review of systems are unobtainable. Physical Exam Physical Exam General Appearance: mild distress Head: atraumatic, normal appearance Eyes: Bilateral: normal appearance, PERRL, EOMI. Ears, Nose, Throat: normal pharynx, normal ENT inspection Neck: normal inspection, supple, full range of motion Respiratory: normal breath sounds, chest non-tender, no respiratory distress Cardiovascular: regular rate/rhythm Peripheral Pulses: 4+ radial (R), 4+ radial (L) Gastrointestinal: soft, non-tender Extremities: normal inspection, normal range of motion, no edema Neurologic/Psych: minimally arousable due to intoxication Skin: rash, Rash in various areas of body with pinpoint erythematous lesions Core Measures ACS in differential dx? No CVA/TIA Diagnosis: No Sepsis Present: No Sepsis Focused Exam Completed? No Progress Differential Diagnoses I considered the following diagnoses in my evaluation of the patient: EtOH intoxication, toxic metabolic encephalopathy Plan of Care: Orders Procedure Date/time Status Heart Healthy Diet 11/26 B Active ED Holding Orders 11/26 414 Active Admit to inpatient 11/26 414 Active Vital Signs 11/26 414 Active EKG 11/26 414 Active Code Status 11/[address] HEAD WO IV CONTRAST 11/26 414 Active AMMONIA 11/27 407 Active URINE DRUG SCREEN FOR ER ONLY 11/27 207 Complete ETHANOL 11/27 207 Complete COMPREHENSIVE METABOLIC PANEL 11/27 207 Complete CBC WITHOUT DIFFERENTIAL 11/27 207 Complete Current Medications Sig/Michael Start time Last Medication Dose Stop Time Status Admin Sodium Chloride 1,000 ML BOLUS ONE 11/26 414 UNVr (Normal Saline 0.9%) 11/26 513 Laboratory Tests 11/26/177: Anion Gap 15, Estimated GFR 27 L, BUN/Creatinine Ratio 10.4, Glucose 115 H, Calcium 8.8, Total Bilirubin 0.4, AST 23, ALT 24, Alkaline Phosphatase 33, Total Protein 6.3, Albumin 3.6, Globulin 2.7, Albumin/Globulin Ratio 1.3, CBC w Diff NO MAN DIFF REQ, RBC 3.19 L, MCV 91.5, MCH 32.2 H, MCHC 35.2, RDW 18.5 H, MPV 7.5, Gran % 62.1, Lymphocytes % 21.1, Monocytes % 14.2 H, Eosinophils % 2.0, Basophils % 0.6, Absolute Granulocytes 2.5, Absolute Lymphocytes 0.9 L, Absolute Monocytes 0.6, Absolute Eosinophils 0.1, Absolute Basophils 0, Serum Alcohol 163.0 11/26/17221: Urine Opiates Screen < 100, Methadone Screen 45, Barbiturate Screen < 60, Ur Phencyclidine Scrn < 6.00, Amphetamines Screen < 100, U Benzodiazepines Scrn < 85, Urine Cocaine Screen < 50, Urine Cannabis Screen 62.00 H Initial ED EKG: none Departure Departure Disposition: STILL A PATIENT Condition: Stable Clinical Impression Primary Impression: ETOH abuse Secondary Impressions: CHEN (acute kidney injury) Referrals: Abdirashid Garay DC (PCP/Family) Departure Forms: Customer Survey General Discharge Information Admission Note Spoke With: Solo Islas MD Documentation of Exam: Documentation of any treatments & extenuating circumstances including Concerns Regarding Discharge (functional status, medication knowledge or non-compliance, living conditions, etc.) that warrant an admission rather than observation: [The patient needs admission for IV fluids, consider nephrology consultation, follow the serum ammonia level, follow head ct] Critical Care Note Critical Care Note Critical Care Time: non-applicable
[2017-11-26 02:41] LABS: BASOPHIL % 0.6 % (0.0-2.0)
[2017-11-26 02:45] LABS: ABSOLUTE BASOPHIL COUNT 0 /CUMM (0.0-0.2); ABSOLUTE EOSINOPHIL COUNT 0.1 /CUMM (0.0-0.7); ABSOLUTE GRANULOCYTE CT 2.5 /CUMM (1.4-6.5); ABSOLUTE LYMPH COUNT 0.9 /CUMM (1.2-3.4); ABSOLUTE MONOCYTE COUNT 0.6 /CUMM (0.10-0.60); GRANULOCYTE % 62.1 % (42.2-75.2); HEMATOCRIT 29.1 % (42-52); MEAN CORPUSCULAR HGB 32.2 PG (27.0-31.0); MEAN CORPUSCULAR HGB CONC 35.2 G/DL (33.0-37.0); MEAN CORPUSCULAR VOLUME 91.5 FL (80.0-94.0); MEAN PLATELET VOLUME 7.5 FL (7.4-10.4); PLATELET COUNT 261 /CUMM (130-400); RBC DISTRIBUTION WIDTH 18.5 % (11.5-14.5); RED BLOOD CELL CT 3.19 /CUMM (4.70-6.10); WHITE BLOOD CELL COUNT 4.1 /CUMM (4.8-10.8)
--- NOTE | 2017-11-26 04:36 | History & Physical ---
Nirav FARIA,[facility] 11/26/17 0435: General Information and HPI MD Statement: I have seen and personally examined LEVI ULLOA and documented this H&P. The patient is a 67 year old M who presented with a patient stated chief complaint of [Alcohol intoxication]. Source of Information: patient Exam Limitations: no limitations History of Present Illness: Patient is a 67 YO M with PMH significant for alcohol dependence, alcohol withdrawal seizures, diabetes type 2, hypertension, anxiety, asthma and insomnia BIBA to [place] ER after EMS was called by the neighbours and was reportedly found intoxicated. Per the Patient he, went to [employer] this morning, ate his breakfast and then went back to [facility]. Later his friend came and they drank Vodka together, though unsure of the quantity. Deneis any Marijuana use. States they started watching movie afterwards but does not know why someone called EMS and why was he brought to the hospital because he was doing fine. Deneis any headaches, nausea, vomiting, tremors, anxiety, SI/HI ideation or seizures. Patient is Alert and Oriented x 3 during the conversation and admits to taking his Insulin and Ativan yesterday. 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 FH: diabetes mellitus BROTHER FH: CAD (coronary artery disease) Psychosocial History Who Do You Live With? self Services at Home: None Primary Language: Belarusian Living Will? no Power of Field Reimbursement Manager/HCP? no Functional Ability ADLs Independent: dressing, eating, toileting, bathing. Ambulation: cane IADLs Independent: shopping, housework, finances, food prep, telephone, transportation , medication admin. Review of Systems Review of Systems Constitutional: Reports: no symptoms. EENTM: Reports: no symptoms. Cardiovascular: Reports: no symptoms. Respiratory: Reports: no symptoms. GI: Reports: no symptoms. Genitourinary: Reports: no symptoms. Musculoskeletal: Reports: no symptoms. Skin: Reports: no symptoms. Neurological/Psychological: Reports: no symptoms. Hematologic/Endocrine: Reports: no symptoms. Immunologic/Allergic: Reports: no symptoms. All Other Systems: Reviewed and Negative Exam & Diagnostic Data Last 24 Hrs of Vital Signs/I&O Vital Signs Date Time Temp Pulse Resp B/P B/P Pulse O2 O2 Flow FiO2 Mean Ox Delivery Rate 11/26 0145 98.1 78 18 109/56 97 Room Air Intake & Output 11/26 0800 11/26 0000 11/25 1600 Intake Total 0 Output Total Balance 0 Intake, Oral 0 Patient 185 lb Weight Physical Exam General Appearance Alert, Oriented X3, Cooperative, No Acute Distress Skin No Rashes, No Breakdown HEENT Atraumatic, PERRLA, EOMI, Sticky discharge on eyelids, mild erythema of Sclera Neck Supple, No JVD Cardiovascular Regular Rate, Normal S1, Normal S2 Lungs Clear to Auscultation, Normal Air Movement Abdomen Normal Bowel Sounds, Soft, No Tenderness Extremities No Clubbing, No Cyanosis, No Edema Last 24 Hrs of Labs/Rafal: Laboratory Tests 11/26/17 0511: Ammonia Pending 11/26/17226: Anion Gap 15, Estimated GFR 27 L, BUN/Creatinine Ratio 10.4, Glucose 115 H, Calcium 8.8, Total Bilirubin 0.4, AST 23, ALT 24, Alkaline Phosphatase 33, Total Protein 6.3, Albumin 3.6, Globulin 2.7, Albumin/Globulin Ratio 1.3, CBC w Diff NO MAN DIFF REQ, RBC 3.19 L, MCV 91.5, MCH 32.2 H, MCHC 35.2, RDW 18.5 H, MPV 7.5, Gran % 62.1, Lymphocytes % 21.1, Monocytes % 14.2 H, Eosinophils % 2.0, Basophils % 0.6, Absolute Granulocytes 2.5, Absolute Lymphocytes 0.9 L, Absolute Monocytes 0.6, Absolute Eosinophils 0.1, Absolute Basophils 0, Serum Alcohol 163.0 11/26/17 022: Urine Opiates Screen < 100, Methadone Screen 45, Barbiturate Screen < 60, Ur Phencyclidine Scrn < 6.00, Amphetamines Screen < 100, U Benzodiazepines Scrn < 85, Urine Cocaine Screen < 50, Urine Cannabis Screen 62.00 H Assessment/Plan Assessment: Patient is a 67 YO M with PMH significant for alcohol dependence, alcohol withdrawal seizures, diabetes type 2, hypertension, anxiety, asthma and insomnia BIBA to [place] ER after found intoxicated at home by neighbours. Vitals Stable on admission. LAbs significant for Cr. 2.4(Baseline 1.8-2.0), Ammonia pending, Utox +ve for Cannabis and Serum alcohol level is 163. Problem List; 1. Toxic encephalopathy likely 2/2 Alcohol ingetion and Marijuana use 2. CHEN on CKD 3. Conjuctivitis 4. Hx of Diabetes and HTN - Observe the patient on Gen Med floor for 24-48 hours. - Start on CIWA Protocol, no Ativan for now. Start on PO thiamine/multivitamin/folic acid. - Hold Ativan and trazodone. - Will give 1L NS Bolus, continue gentle IV fluids with D5 NS - Repeat Labs in am - Hold Lisinopril given CHEN - Erythromycin ointment for Conjuctivitis - ISS and ACCu checks - Continue colchicine at half dose(CrCL < 30) and continue tamsulosin. DVT Prophylaxis; ALPS and S/C Heparin Patient is Full Code As Ranked By This Provider Problem List: 1. Alcohol intoxication delirium 2. Acute kidney failure Core Measures/Misc (01/29) Acute Coronary Syndrome ACS Diagnosis: No Congestive Heart Failure Congestive Heart Failure Diagnosis No Cerebrovascular Accident CVA/TIA Diagnosis: No VTE (View Protocol) VTE Risk Factors Age>40 No Mechanical VTE Prophylaxis d/t N/A MechProphylax Ordered No VTE Pharm Prophylaxis d/t NA PharmProphylax ordered Sepsis (View protocol) Sepsis Present: No If YES complete Sepsis Event Note If YES complete Sepsis Event Note Janel FARIABantam 11/26/17 0555: General Information and HPI MD Statement: I have seen and personally examined LEVI ULLOA and documented this H&P. The patient is a 67 year old M who presented with a patient stated chief complaint of [confusion]. Source of Information: patient Exam Limitations: no limitations Allergies/Medications Allergies: Coded Allergies: No Known Allergies (07/20/17) Home Med list Albuterol Sulfate (Proair Hfa) 90 MCG HFA.AER.AD 2 PUF INH Q4-6 PRN PRN wheezing Benzonatate (Tessalon Perle) 100 MG CAPSULE 1 CAP PO TID PRN COUGH Colchicine 0.6 MG TABLET 1 TAB PO DAILY GOUT (Reported) Docusate Sodium (Colace) 100 MG CAPSULE 1 CAP PO BID CONSTIPATION (Reported) Lisinopril 10 MG TABLET 1 TAB PO DAILY HIGH BLOOD PRESSURE (Reported) Lorazepam 1 MG TABLET 1 TAB PO TID ANXIETY (Reported) Multivitamin (Daily Multiple Vitamin) 1 EACH TABLET 1 TAB PO DAILY Supplement Repaglinide (Prandin) 1 MG TABLET 0.5 MG PO BEFORE MEALS Pre-diabetes . Sennosides (Senna) 8.6 MG TABLET 2 TAB PO DAILY PRN CONSTIPATION (Reported) Tamsulosin HCl (Flomax) 0.4 MG CAP.ER.24H 0.4 MG PO DAILY URINARY DIFFICULTY . Trazodone HCl 100 MG TABLET 1 TAB PO QPM SLEEP (Reported) Past History Medical History EENT: allergies Cardiovascular: hypertension Respiratory: asthma, COPD, pneumonia Gastrointestinal: pancreatitis Musculoskeletal: gout Psychiatric: alcohol dependence, anxiety, depression, insomnia Surgical History Surgical History: appendectomy Past Family/Social History Psychosocial History Smoking Status: Current Everyday Smoker ETOH Use: alcoholic Illicit Drug Use: marijuana Review of Systems Review of Systems Constitutional: Reports: see HPI. Exam & Diagnostic Data Last 24 Hrs of Vital Signs/I&O Vital Signs Date Time Temp Pulse Resp B/P B/P Pulse O2 O2 Flow FiO2 Mean Ox Delivery Rate 11/26 0506 98.0 80 16 130/72 96 Room Air 11/26 0145 98.1 78 18 109/56 97 Room Air Intake & Output 11/26 0800 11/26 0000 11/25 1600 Intake Total 0 Output Total Balance 0 Intake, Oral 0 Patient 185 lb Weight Physical Exam General Appearance Alert, Oriented X3, Cooperative Skin No Rashes, No Breakdown HEENT Atraumatic, PERRLA, EOMI Neck Supple, No JVD Cardiovascular Regular Rate, Normal S1, Normal S2 Lungs Clear to Auscultation, Normal Air Movement Abdomen Normal Bowel Sounds, Soft, No Tenderness Extremities No Clubbing, No Cyanosis, No Edema Last 24 Hrs of Labs/Rafal: Laboratory Tests 11/26/17 0511: Ammonia < 9 L 11/26/17 0227: Anion Gap 15, Estimated GFR 27 L, BUN/Creatinine Ratio 10.4, Glucose 115 H, Calcium 8.8, Total Bilirubin 0.4, AST 23, ALT 24, Alkaline Phosphatase 33, Total Protein 6.3, Albumin 3.6, Globulin 2.7, Albumin/Globulin Ratio 1.3, CBC w Diff NO MAN DIFF REQ, RBC 3.19 L, MCV 91.5, MCH 32.2 H, MCHC 35.2, RDW 18.5 H, MPV 7.5, Gran % 62.1, Lymphocytes % 21.1, Monocytes % 14.2 H, Eosinophils % 2.0, Basophils % 0.6, Absolute Granulocytes 2.5, Absolute Lymphocytes 0.9 L, Absolute Monocytes 0.6, Absolute Eosinophils 0.1, Absolute Basophils 0, Serum Alcohol 163.0 11/26/17 0222: Urine Opiates Screen < 100, Methadone Screen 45, Barbiturate Screen < 60, Ur Phencyclidine Scrn < 6.00, Amphetamines Screen < 100, U Benzodiazepines Scrn < 85, Urine Cocaine Screen < 50, Urine Cannabis Screen 62.00 H Core Measures/Misc (01/29) Sepsis (View protocol) If YES complete Sepsis Event Note If YES complete Sepsis Event Note Attending MD Review Statement Attending Statement Attending MD Statement: examined this patient, discuss w/resident/PA/STENCIL MACHINE OPERATOR, agreed w/resident/PA/STENCIL MACHINE OPERATOR, amended to note Attending Assessment/Plan: This patient is a 67 year old white male with a significant past medical history for alcohol dependence, alcohol withdrawal seizures, diabetes type 2, hypertension, anxiety, asthma and insomnia BIBA to [place] ER after found intoxicated at home by neighbors. According to the Patient he, went to [employer] the morning before admission, ate his breakfast and then went back to [facility]. Later his friend came and they drank Vodka together, though unsure of the quantity. States they started watching movie afterwards but does not know why someone called EMS and why was he brought to the hospital because he was doing fine. He was found confused and had an elevated Cr to 2.4. Being placed on observation for toxic encephalopathy and Acute on chronic renal failure.
--- NOTE | 2017-11-26 05:00 | CT SCAN REPORT ---
EXAMINATION: CT HEAD WITHOUT CONTRAST CLINICAL INFORMATION: Altered mental status COMPARISON: 11/19/2017 TECHNIQUE: Contiguous axial imaging was performed from the skull base to vertex without intravenous administration of contrast. DLP: 867.95 mGy-cm FINDINGS: There is no evidence of acute intracranial hemorrhage or territorial infarction. No abnormal mass effect or midline shift is seen. Sánchez to white matter differentiation is well preserved. No extra-axial fluid collections are identified. The ventricles are normal in size. There is moderate periventricular white matter hypoattenuation consistent with chronic small vessel ischemic disease. Mild volume loss is noted. The osseous structures and soft tissues are normal. There is partial opacification of the right mastoid air cells. The visualized portions of the paranasal sinuses are well-aerated. IMPRESSION: No acute intracranial pathology.
[2017-11-26 06:42] VITALS: BP 126/64
[2017-11-26 12:00] VITALS: BP 140/80
--- NOTE | 2017-11-26 14:07 | Event Note ---
Event Note Event Note: 67 yo M with pmh of the presence of alcohol dependence, alcohol withdrawal seizures, as type 2 diabetes mellitus, hypertension, anxiety, asthma, insomnia, was brought in by ambulance for intoxication. He is being observed in the general medical floor for the management of following issues: #Altered mental status, 2/2 alcohol ingestion and marijuana use Patient was placed in CIWA protocol and initially not started on Ativan, but the patient takes Ativan one milligrams 3 times a day at home, so in order to prevent eventual withdrawal seizure, we are prescribing 0.5 mg Ativan 3 times a day for now. Will continue multivitamin, thiamine, folic acid. #Diabetes mellitus Patient's oral intake is poor, and has only received 1 L of normal saline plus we are continuing D5 half-normal saline at 75 mL per hour. Continue ISS. #CHEN -Holding Lisinopril for now. IV fluids running, no obstruction suspected as of now. #HTN Lisinopril is currently held given the CHEN. #Continuing home medications otherwise. #Diet: Diabetic diet #DVT ppx: SQ Heparin #Code status: Full code
--- NOTE | 2017-11-26 14:15 | PN-Observation ---
Observation Note Observation Note _ I have personally examined LEVI ULLOA. him disposition is uncertain at this time. Before a determination can be made, he requires continued observation for the following reasons [].
[2017-11-26 15:12] VITALS: BP 140/70
--- NOTE | 2017-11-26 18:50 | PN- Att Addend ---
Attending Addendum Attending Brief Note pt seen and examined at bedside. pt being placed in observation for acute alcohol intoxication and chen on ckd. CIWA staying 0. will get psych consult in am for anxiety management. Pt will be started on lorazepam 0.5mg po tid. home dose was 1mg bid. pt has been taking it consistently at home. CHEN on CKD- cr of 2.4., baseline around 1.8, recheck in am. cont iv fluids. will get SW consult for alcohol rehab. pt is currently living at [facility] and is on social security benefits. has not much social support in the area. Is and has 2 kids but not in touch with the kids.
[2017-11-26 19:04] VITALS: BP 132/68
[2017-11-26 22:33] VITALS: BP 154/84
[2017-11-27 02:15] VITALS: BP 148/80
[2017-11-27 06:00] VITALS: BP 150/78
--- NOTE | 2017-11-27 07:05 | PN-Observation ---
Lyndon Syed 11/27/17 0704: Observation Note Observation Note _ I have personally examined LEVI ULLOA. him disposition is uncertain at this time. Before a determination can be made, he requires continued observation for the following reasons: Acute alcohol intoxication, return to hospital after recent discharge Assessment/Plan Medical Assessment: Patient is a 67 YO M with PMH significant for alcohol dependence, alcohol withdrawal seizures, diabetes type 2, hypertension, anxiety, asthma and insomnia BIBA to [facility] after EMS was called by the neighbours and was reportedly found intoxicated. Problem List: 1. Alcohol intoxication 2. Chronic renal insufficiency Plan: -Observe the patient on general medical floor for 24-48 hours -Continue tamulosin -Discharge today, 11/27 Patient is full code DVT/Prophylaxis: mechanical (refused by patient), pharmacological Consulting Request: Consulting Specialty: Psychiatry Discharge Plan Discharge Disposition: home Subjective Follow-up For: Acute alcohol intoxication Subjective: She was seen and examined at the bedside. Patient states he feels fine this morning, and that his actions to return him to the hospital "should not have happened". Patient seems enthusiastic about trying to get clean again, looking forward to assistance from his ex-. Review of Systems Constitutional: Reports: no symptoms. Cardiovascular: Reports: no symptoms. Respiratory: Reports: no symptoms. Gastrointestinal: Reports: no symptoms. Musculoskeletal: Reports: no symptoms. Objective Last 24 Hrs of Vital Signs/I&O Vital Signs Date Time Temp Pulse Resp B/P B/P Pulse O2 O2 Flow FiO2 Mean Ox Delivery Rate 11/27 0600 98.3 81 18 150/78 96 Room Air 11/27 0215 98.0 81 18 148/80 95 Room Air 11/26 2233 97.7 73 18 154/84 97 11/26 1904 99.2 91 16 132/68 96 Room Air 11/26 1512 98.3 87 20 140/70 96 Room Air 11/26 1200 98.8 80 20 140/80 11/26 1200 98.8 80 20 140/80 98 Room Air Intake & Output 11/27 1600 11/27 0800 11/27 0000 Intake Total 250 Output Total 200 Balance -200 250 Intake, Oral 250 Output, Urine 200 Physical Exam General Appearance: Alert, Oriented X3, Cooperative, No Acute Distress Skin: No Rashes Skin Temp/Moisture Exam: Warm/Dry HEENT: Atraumatic, PERRLA, EOMI, mild conjunctivitis Neck: Supple, No JVD, No thryomegaly Cardiovascular: Regular Rate, Normal S1, Normal S2, No Murmurs Lungs: Clear to Auscultation, Normal Air Movement Abdomen: Soft, No Tenderness, No Hepatospenomegaly Neurological: Normal Gait, Normal Speech, Strength at 5/5 X4 Ext, Normal Tone, Sensation Intact Extremities: No Clubbing, No Cyanosis, No Edema Larry Crabtree 11/27/17 1048: Attending Addendum Attending Brief Note Patient is observation status for alcohol intoxication. He is feeling well. No hallucniations, delusions and vitals stable. Pyshciatry consulted and recommend gabapentin and ativan slow taper and stop, can be done as outpatient. Patient non compliant. Encourage complaince. Declined help/support. Will follow his PCP.
[2017-11-27 09:19] VITALS: BP 140/80
--- NOTE | 2017-11-27 10:00 | Cons- Psychiatry ---
Psychiatric Consult Date of Consult: 11/27/17 Reason for Consult: 67-year-old male admitted with alcohol intoxication. Patient was discharged the previous day. Asked to evaluate the patient as he is on lorazepam at home on a standing basis. History of Present Illness: The patient reports that on discharge his intent was not to drink alcohol. He says however that "my friends came by" and he shared half of the fifth of vodka. He lives at the [facility] for alcohol is not allowed. He was reported and then sent to the emergency room. The patient has a long history of alcohol dependence. His longest period of sobriety was from 1996 until 2009 though he is somewhat inconsistent around this. He attains sobriety following an intensive outpatient program. He reports marital difficulties as his reason for relapse. The patient does not attend AA. He denies using drugs other than alcohol. Blood alcohol in the emergency room was 163. Urine was positive for marijuana. The patient has been prescribed lorazepam by his primary care doctor. He says he takes it "every other day if I take it at all". He denies abusing it. Patient denies any abnormalities. He is not suicidal or homicidal. There are no psychotic symptoms. Past psychiatric history: Reports a history of anxiety for which she has been prescribed lorazepam by his primary care doctor. No other psychiatric history. No history of suicide attempts or deliberate self-harm. Substance abuse history: Alcohol dependence as above. The patient reports using marijuana in his 20s but denies any recent use. Of note urine drug screen is positive for marijuana. November of this year is the first time he has tested positive for cannabis. Personal history: The patient lives at the [facility]. He believes he will be able to maintain sobriety there is no alcohol is allowed and it is strictly enforced. Patient has been twice. His first relationship was for 28 years and ended in 2002. He again in 2004 and they were 5 months ago. He and his x-rays still very involved. She has contacted and is said that when he leaves hospital she will be his main health and support. Patient is 2 adult children with whom he has no contact. 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 He receives Social Security and has a jail plan. Past medical history: Type 2 diabetes on insulin, hypertension, CKD, asthma, pancreatitis. The patient is also anemic. Allergies: Coded Allergies: No Known Allergies (07/20/17) Current Medications: Med Albuterol Sulfate 2 PUF INH Q4-6 PRN PRN 11/26/17 0515 Colchicine 300 MCG PO DAILY 11/26/17 0900 Folic Acid 1 MG PO DAILY 11/26/17 0900 Heparin Sodium (Porcine) 5,000 UNIT SC Q8 11/26/17 0600 Insulin Aspart SC TIDAC/HS 11/26/17 0800 Lorazepam 0.5 MG PO TID 11/26/17 1414 Multivitamins Therapeutic 1 TAB PO DAILY 11/26/17 0900 Tamsulosin HCl 0.4 MG PO DAILY 11/26/17 0900 Thiamine HCl 100 MG PO DAILY 11/26/17 0900 Past History Past Medical History Neurological: ALCOHOL WITHDRAWAL SEIZUR *06/15/16- PT DENIES HX OF ETOH W/ SEIZURES* EENT: allergies Cardiovascular: hypertension Respiratory: asthma, COPD, pneumonia Gastrointestinal: pancreatitis Hepatic: NONE Renal: NONE Musculoskeletal: gout Psychiatric: alcohol dependence, anxiety, depression, insomnia Endocrine: DM Blood Disorders: NONE Cancer(s): NONE ROOF SLATER/Reproductive: NONE Past Surgical History Surgical History: appendectomy Psychosocial History Strengths/Capabilities: Agreeable to treatment at this time Physical Limitations (Interventions): Gait disturbance, but walks without device. Psychiatric Treatment History Psych Treatment Psychiatric Treatment No Inpatient Treatment No Outpatient Treatment No Diagnosis: Patient is prescribed lorazepam by his primary care doctor for anxiety. Adherence is erratic. His primary care doctor is unaware of his alcohol history. Notes reports a history of trials on SSRIs which the patient says were unhelpful. He has no formal psychiatric history. Risk Factors: age (under 24/over 65), chronic/serious med cond., high anxiety/ distress, substance abuse, isolate/no social support, poor impulse control, lives alone, male, limited support Substance Use/Abuse History Drug Use/Abuse Substances Used/Abused Yes (see HPI) Substance Abuse Treatment Substance Abuse Treatment Past Substance Abuse [place] Yes (see HPI) Comments: The patient has a lengthy history of alcohol dependence. His last intensive outpatient program was in 1996. He has had no treatment since and declines treatment at this time. Assessment/Plan Mental Status Orientation: Person, Place, Situation Affect: WNL Speech: WNL Mental Status Exam: The patient is a 67-year-old male who looks his appropriate age. He was encountered lying in his hospital bed wearing hospital attire. He has superficial abrasions on his arms. He was alert and oriented 3. Gait was not assessed. Eye contact is good. Speech was normal in rate, rhythm, volume and tone. He described his mood is good. His affect was normal in range. Thought process was normal in tempo, stream and form with no delusions or obsessions. Attention and concentration were good. There is no perceptual abnormality. Impulse control is fair. Recent and remote memory are intact. Level of intelligence is average, use of language appropriate, fund of knowledge average. Patient's insight is fair. He minimizes his alcohol use of the difficulties in involved in obtaining and maintaining sobriety. Judgment however is unimpaired. Lab Results: Lab Anion Gap 11 11/27/17 0615 BUN 21 mg/dL H 11/27/17 0615 Carbon Dioxide 24 mmol/L 11/27/17 0615 Chloride 105 mmol/L 11/27/17 0615 Creatinine 1.6 mg/dL H 11/27/17 0615 Estimated GFR 43 ml/min L 11/27/17 0615 Potassium 4.1 mmol/L 11/27/17 0615 Sodium 140 mmol/L 11/27/17 0615 Hct 29.1 % L 11/26/17 022 Hgb 10.3 G/DL L 11/26/17 0227 MCH 32.2 PG H 11/26/17 0227 MCHC 35.2 G/DL 11/26/17 022 MCV 91.5 FL 11/26/17226 Plt Count 261 /CUMM 11/26/17 022 RBC 3.19 /CUMM L 11/26/17 022 RDW 18.5 % H 11/26/17 022 WBC 4.1 /CUMM L 11/26/17 022 Serum Alcohol 163.0 MG/DL 11/26/17 022 Urine Cannabis Screen 62.00 NG/ML H 11/26/17 022 Diffential Diagnosis: 1. Alcohol dependence 2. Unspecified anxiety disorder by history 3. Erratic adherence to lorazepam 4. Type 2 diabetes, on insulin 5. Hypertension 6. Anemia 7. Chronic kidney disease Impression: 67-year-old male readmitted with alcohol intoxication and urine positive for cannabis within 24 hours of discharge for treatment of same. Patient was prescribed lorazepam by his primary care doctor and takes it erratically. No pervasive mood disorder. No psychosis. Given his limited in size unfortunately the patient's prognosis is guarded. Provisional Treatment Plan: 1. Lorazepam 0.5 mg bid x 3 days, o.5 mg daily for three days and stop 2. Gabapentin 300 mg po tid for anxiety and relapse prevention 3. Pt information on gabapentin 4. Continue thiamine, folate 5. Declines IOP,OP and AA. Will follow -up w PCP and seek referral if he feels he needs it. 6. Management of diabetes, hypertension, kidney disease, anemia and asthma as per medical team. Psychiatry will sign off for now. Please feel free to contact us if we can be of any further assistance. Thank you for consulting us on this patient.
--- NOTE | 2017-11-27 10:13 | Patient Discharge Instructions ---
Discharge Instructions General Discharge Information Special Instructions: - Please follow up with your primary care physician within 1-2 weeks of discharge. Inform your primary care physician of this admission to [facility]. - Continue your current medications per discharge instructions. Specifically, please do not take your insulin any longer. You can wait until the end of the month to collect your new medication, Prandin. - Please watch for these problems: Fever, Chills, Nausea, Vomiting, Shortness of Breath, Productive Cough, Chest Pain/Discomfort, Abdominal Pain, Active Bleeding or Bloody urine/stool. Diet Continue normal diet: Yes Recommended Diet: Diabetic Activity Full Activity/No Limits: Yes Acute Coronary Syndrome Inclusion Criteria At DC or during hospital stay patient has or had the following: ACS DIAGNOSIS No Discharge Core Measures Meds if any: Prescribed or Continued at Discharge Meds if any: NOT Prescribed or Continued at Discharge Congestive Heart Failure Inclusion Criteria At DC or during hospital stay patient has or had the following: CHF DIAGNOSIS No Discharge Core Measures Meds if any: Prescribed or Continued at Discharge Meds if any: NOT Prescribed or Continued at Discharge Cerebrovascular accident Inclusion Criteria At DC or during hospital stay patient has or had the following: CVA/TIA Diagnosis No Discharge Core Measures Meds if any: Prescribed or Continued at Discharge Meds if any: NOT Prescribed or Continued at Discharge Venous thromboembolism Inclusion Criteria VTE Diagnosis No VTE Type NONE VTE Confirmed by (Test) NONE Discharge Core Measures - Per Current guidelines, there needs to be overlap - treatment for the first 5 days of Warfarin therapy. - If discharged on Warfarin prior to 5 days of - overlap therapy, the patient will need to be - assessed for post discharge needs including - *Post discharge parental anticoagulation - *Warfarin and/or parental anticoagulation education - *Follow up date to check INR post discharge At least 5 days overlap therapy as Inpatient No Meds if any: Prescribed or Continued at Discharge Note: Overlap Therapy is Warfarin and Anticoagulant Meds if any: NOT Prescribed or Continued at Discharge
[2017-11-27] MEDS ORDERED: VITAMIN B-1100 MG PO (10:17)
[2017-11-27] MEDS ORDERED: FOLIC ACID1 M1 PO (10:17)
[2017-11-27] MEDS ORDERED: ATIVAN0.5 M1 PO (10:17)
[2017-11-27] MEDS ORDERED: GABAPENTIN300 M2 PO (10:18)
== END 2017-11-27 14:48 ==
LOC: ERH 00:57 → ERHI 04:15 → 2NA 04:15 → ENRESERV 05:34 → 2NA 13:47 → ENPENDDIS 11-27 11:13 → ENTRNSPT 11-27 14:32 → 2NA 11-27 14:48 → EDTRNSPTSTS 11-27 14:54 → CMPTRNSPT 11-27 14:55
PROVIDERS: Emergency Medicine
DX: F10.229 Alcohol dependence with intoxication, unspecified (principal); F41.9 Anxiety disorder, unspecified; J45.909 Unspecified asthma, uncomplicated; J44.9 Chronic obstructive pulmonary disease, unspecified; M10.9 Gout, unspecified; G47.00 Insomnia, unspecified; G92 Toxic encephalopathy; N17.9 Acute kidney failure, unspecified; I12.9 Hypertensive chronic kidney disease with stage 1 through stage 4 chronic kidney disease, or unspecified chronic kidney disease; E11.22 Type 2 diabetes mellitus with diabetic chronic kidney disease; N18.9 Chronic kidney disease, unspecified; H10.9 Unspecified conjunctivitis; F17.200 Nicotine dependence, unspecified, uncomplicated; F12.90 Cannabis use, unspecified, uncomplicated; D64.9 Anemia, unspecified; Z79.899 Other long term (current) drug therapy; Z79.84 Long term (current) use of oral hypoglycemic drugs
CPT/HCPCS: 36592; 80307; 82436; 93005; 93010; 96372; 99232; G0378; G0480; J1644; J3490; J7042

== ENCOUNTER 2017-12-13 20:41 | Observation (INO) | payer OTHER, MEDICARE ==
[~2017-12-13] VITALS: Ht 175.3 cm; Wt 86.2 kg
[~2017-12-13 20:41] MED LIST changes: +GABAPENTIN300 M2 PO
--- NOTE | 2017-12-13 21:17 | ED AMS/SEIZURE/WEAK/DIZZY ---
History of Present Illness General Chief Complaint: Altered Mental Status Stated Complaint: BIBA AMS Source: patient, old records Exam Limitations: intoxication Vital Signs & Intake/Output Vital Signs & Intake/Output Vital Signs Date Time Temp Pulse Resp B/P B/P Pulse O2 O2 Flow FiO2 Mean Ox Delivery Rate 12/14 0823 101 18 141/79 12/14 0737 98.3 88 15 115/58 94 Room Air Room Air 12/14 0428 96 12/14 0314 97.9 124 20 134/80 95 Room Air Room Air 12/14 0034 97 12/13 2049 97.8 107 18 140/70 98 Room Air Allergies Coded Allergies: No Known Allergies (07/20/17) Triage Note: PT TO ED BY AMBULANCE AFTER 911 CALL RECEIVED WHEN PT WAS NOTED WALKING AROUND THE HALLS OF THE [facility] NAKED. PT ARRIVES VISIBLY INTOXICATED, ADMITS TO ETOH USE. ALCOHOL BREATHALYZER 0.278. DENIES MEDICAL COMPLAINTS. DENIES FALLS. Triage Nurses Notes Reviewed? yes HPI: 67-year-old male with hx of alcohol abuse/dependence, withdrawal seizures, COPD, HTN, pancreatitis BIBA from the [facility] for AMS. Per EMS the patient was found wandering around the hallways naked. The patient reports "urinary issues" and dysuria. He also reports recent visual changes. HPI is limited d/t likely intoxication. Patient now actively vomiting. (Rachel MALIN,Tawanna Lion) Reconcile Medications Colchicine 0.6 MG TABLET 1 TAB PO DAILY GOUT (Reported) Gabapentin 300 MG CAPSULE 1 CAP PO TID anxiety Lisinopril 10 MG TABLET 1 TAB PO DAILY HIGH BLOOD PRESSURE (Reported) Lorazepam (Ativan) 0.5 MG TABLET 1 TAB PO SEE ADMIN CRITERIA Alcohol withdrwal /anxiety Repaglinide (Prandin) 1 MG TABLET 0.5 MG PO BEFORE MEALS Pre-diabetes . Tamsulosin HCl (Flomax) 0.4 MG CAP.ER.24H 0.4 MG PO DAILY URINARY DIFFICULTY . Trazodone HCl 100 MG TABLET 1 TAB PO QPM SLEEP (Reported) (Gilberto FARIA,José Miguel Tellez) Past History Travel History Traveled to [place] past 21 day No Medical History Any Pertinent Medical History? 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 FH: diabetes mellitus BROTHER FH: CAD (coronary artery disease) Hx Contributory? No (Tawanna Mcghee) Review of Systems Review of Systems Constitutional: Reports: see HPI. EENTM: Reports: see HPI. Respiratory: Reports: no symptoms. Cardiovascular: Reports: no symptoms. GI: Reports: see HPI. Genitourinary: Reports: see HPI. Musculoskeletal: Reports: no symptoms. Skin: Reports: no symptoms. Neurological/Psychological: Reports: see HPI. Hematologic/Endocrine: Reports: no symptoms. Immunologic/Allergic: Reports: no symptoms. All Other Systems: Reviewed and Negative (Tawanna Mcghee) Physical Exam Physical Exam General Appearance: well developed/nourished, alert, awake, intoxicated Head: atraumatic, normal appearance Eyes: Bilateral: normal appearance, PERRL, EOMI. Ears, Nose, Throat: normal pharynx, hearing grossly normal Neck: normal inspection, supple, full range of motion Respiratory: normal breath sounds, no respiratory distress, lungs clear Cardiovascular: regular rate/rhythm Gastrointestinal: normal bowel sounds, soft, non-tender, no organomegaly Back: normal inspection, normal range of motion Extremities: normal range of motion Neurologic/Psych: awake, alert, oriented x 3, manager mobile II-XII nml as tested Skin: intact, normal color, warm/dry Core Measures ACS in differential dx? No CVA/TIA Diagnosis No Sepsis Present: No Sepsis Focused Exam Completed? No (Tawanna Mcghee) Progress Differential Diagnosis: arrythmia, alcohol intoxication, CVA/stroke, dehydration , drug intoxication, encephalitis, electrolyte imbalance, hypoglycemia, hypoxia, intracranial Hem., intracranial mass/tumor, UTI/pyelo Plan of Care: Orders Procedure Date/time Status Regular Diet 12/14 B Active Add-on Test (ER Only) 12/14 06 Active COMPREHENSIVE METABOLIC PANEL 12/14 06 Complete ETHANOL 12/14 045 Complete URINALYSIS 12/14 310 Complete OXYGEN SETUP (GEN) 12/14 1 Active Saline Lock 12/[address] in observation 12/14 1 Active Patient Data 12/14 1 Active Vital Signs 12/14 1 Active Activity/Ambulation 12/14 1 Active Code Status 12/14 1 Active URINE DRUG SCREEN FOR ER ONLY 12/13 2110 Complete URINALYSIS 12/13 2110 Complete TROPONIN LEVEL 12/13 2110 Complete LIPASE 12/13 2110 Complete ETHANOL 12/13 2110 Complete COMPREHENSIVE METABOLIC PANEL 12/13 2110 Complete CBC WITHOUT DIFFERENTIAL 12/13 2110 Complete AMYLASE 12/13 2110 Complete EKG 12/13 2110 Active Intake & Output 12/13 2054 Active Laboratory Tests 12/14/17 0450: Anion Gap 12, Estimated GFR 30 L, BUN/Creatinine Ratio 7.7, Glucose 138 H, Calcium 8.1 L, Total Bilirubin 0.5, AST 26, ALT 29, Alkaline Phosphatase 39, Total Protein 6.2 L, Albumin 3.6, Globulin 2.6, Albumin/Globulin Ratio 1.4, Serum Alcohol 116.0 12/14/17 0310: Urine Color YEL, Urine Clarity CLDY H, Urine pH 6.0, Ur Specific Chama 1.025, Urine Protein 100 H, Urine Ketones NEG, Urine Nitrite NEG, Urine Bilirubin NEG, Urine Urobilinogen 0.2, Ur Leukocyte Esterase LARGE H, Ur Microscopic SEDIMENT EXAMINED, Urine RBC 5-10 H, Urine WBC > 75 H, Ur Epithelial Cells OCCAS, Urine Bacteria MANY H, Urine Hemoglobin MOD H, Urine Glucose NEG 12/14/17 0104: Urine Opiates Screen < 100, Methadone Screen 48, Barbiturate Screen < 60, Ur Phencyclidine Scrn < 6.00, Amphetamines Screen < 100, U Benzodiazepines Scrn < 85, Urine Cocaine Screen < 50, Urine Cannabis Screen 31.40, Urine Color YEL, Urine Clarity HAZY H, Urine pH 6.0, Ur Specific Chama 1.020, Urine Protein 100 H, Urine Ketones NEG, Urine Nitrite NEG, Urine Bilirubin NEG, Urine Urobilinogen 0.2, Ur Leukocyte Esterase LARGE H, Ur Microscopic SEDIMENT EXAMINED, Urine RBC 3-5, Urine WBC 10-15 H, Ur Epithelial Cells FEW, Urine Bacteria FEW H, Urine Hemoglobin SMALL H, Urine Glucose NEG 12/13/172120: Anion Gap 17 H, Estimated GFR 27 L, BUN/Creatinine Ratio 7.9, Glucose 156 H, Calcium 9.2, Total Bilirubin 0.6, AST 32, ALT 23, Alkaline Phosphatase 54, Troponin I < 0.01, Total Protein 7.6, Albumin 4.5, Globulin 3.1, Albumin/ Globulin Ratio 1.5, Amylase 92, Lipase 458 H, CBC w Diff NO MAN DIFF REQ, RBC 4.35 L, MCV 92.6, MCH 30.9, MCHC 33.4, RDW 18.3 H, MPV 7.5, Gran % 68.2, Lymphocytes % 19.4 L, Monocytes % 10.1 H, Eosinophils % 1.9, Basophils % 0.4, Absolute Granulocytes 6.8 H, Absolute Lymphocytes 1.9, Absolute Monocytes 1.0 H, Absolute Eosinophils 0.2, Absolute Basophils 0, Serum Alcohol 247.0 Labs show the patient has acute kidney injury. IV fluids initiated. Labs also show elevated alcohol level of 247. Given acute kidney injury and alcohol level patient will remain in the emergency department for observation, IV fluids, CIWA, repeat metabolic panel in the morning. The patient was signed out to Dr. Goldberg for ED obs. Diagnostic Imaging: Viewed by Me: Radiology Read, CT Scan. Discussed w/RAD: Radiology Read, CT Scan. Radiology Impression: PATIENT: LEVI ULLOA PRESENT AGE : 67 PATIENT ACCOUNT NO: [id number] : 50 LOCATION: [facility] ORDERING PHYSICIAN: Tawanna MALIN SERVICE DATE: 12/13/17 EXAM TYPE: CAT - CT HEAD WO IV CONTRAST EXAMINATION: CT HEAD WITHOUT CONTRAST CLINICAL INFORMATION: Altered mental status. COMPARISON: CT head 11/26/2017 TECHNIQUE: Contiguous axial imaging was performed from the skull base to vertex without intravenous administration of contrast. DLP: 616.38 mGy-cm FINDINGS: There is no evidence of acute intracranial hemorrhage or territorial infarction. No abnormal mass effect or midline shift is seen. Sánchez to white matter differentiation is well preserved. No extra-axial fluid collections are identified. There is atrophy with prominence of the ventricles and the sulci and hypodensity of the periventricular white matter due to chronic small vessel ischemic disease. There is vascular calcifications of the internal carotid arteries bilaterally. The osseous structures and soft tissues are normal. The mastoid air cells and visualized portions of the paranasal sinuses are well aerated. IMPRESSION: No acute intracranial pathology. DICTATED BY: Gonzalo Camp MD DATE/TIME DICTATED:2307 BUSINESS AREA DIRECTOR:VERNON DATE/TIME TRANSCRIBED:12/13/172307 CONFIDENTIAL, DO NOT COPY WITHOUT APPROPRIATE AUTHORIZATION. <Electronically signed in Other Vendor System> SIGNED BY: Gonzalo Camp MD 12/13/172312 CXR Impression: PATIENT: LEVI ULLOA PRESENT AGE: 67 PATIENT ACCOUNT NO: [id number] : 50 LOCATION: [facility] ORDERING PHYSICIAN: Tawanna MALIN SERVICE DATE: 12/13/17 EXAM TYPE: RAD - XRY- PORTABLE CHEST XRAY EXAMINATION: XR PORTABLE CHEST CLINICAL INFORMATION: Altered mental status. Vomiting. COMPARISON: Chest x-ray 11/18/2017 TECHNIQUE: Portable frontal view of the chest was obtained. 10:53 PM FINDINGS: Lungs are clear. No pulmonary vascular congestion. There is no pleural effusion. The heart size is normal. The cardiac and mediastinal contours are normal. There are multilevel degenerative changes of dorsal spine. IMPRESSION: Unremarkable examination. DICTATED BY: Gonzalo Camp MD DATE/TIME DICTATED:12/13/172314 BUSINESS AREA DIRECTOR :CONTRERAS DATE/TIME TRANSCRIBED:12/13/172314 CONFIDENTIAL, DO NOT COPY WITHOUT APPROPRIATE AUTHORIZATION. <Electronically signed in Other Vendor System> SIGNED BY: Gonzalo Camp MD 12/13/172318 Initial ED EKG: sinus rhythm @97bpm, nonspecific ST changes Prior EKG: unchanged (11/26/17) Hand-Off Endorsed To: Ac Goldberg MD Endorsed Time: 16 Pending: other (ED obs) (Tawanna Mcghee) Hand-Off Endorsed To: José Miguel Macias MD Endorsed Time: 704 Pending: other (gait assessment) (Ac Goldberg MD) Departure Departure Condition: Stable Referrals: Abdirashid Garay DC (PCP) Departure Forms: Customer Survey General Discharge Information (Tawanna Mcghee) Departure Clinical Impression Primary Impression: CHEN (acute kidney injury) Secondary Impressions: Alcohol intoxication, Elevated lipase, Nausea & vomiting, UTI (urinary tract infection) PA/FIRESTOPPER TECHNICIAN Co-Sign Statement Statement: ED Attending supervision documentation- x I saw and evaluated the patient. I have also reviewed all the pertinent lab results and diagnostic results. I agree with the findings and the plan of care as documented in the PA's/FIRESTOPPER TECHNICIAN's documentation. [] I have reviewed the ED Record and agree with the PA's/FIRESTOPPER TECHNICIAN's documentation. [] Additions or exceptions (if any) to the PAs/FIRESTOPPER TECHNICIAN's note and plan are summarized below: [] (Ac Goldberg MD) Departure Disposition: HOME OR SELF CARE Additional Instructions: He really needs to stop drinking alcohol. Take antibiotics as prescribed. Return if symptoms worsen or for any concerns. Prescriptions: Current Visit Scripts Sulfamethoxazole/Trimethoprim (Bactrim Ds Tablet) 1 TAB PO BID #14 TAB (José Miguel Macias MD) ED Attending Observation Initial Observation Note: I have seen and personally examined LEVI ULLOA on 12/13/17 at 2330. I agree with the current emergency department documentation. The disposition (admission or discharge) is uncertain at this time, he needs a period of observation for the following reason(s): alcohol intoxication, CHEN, UTI The ED Nurse caring for this patient has been personally informed as to what the patient is being observed for. (Ac Goldberg MD) Observation Discharge: I have reevaluated LEVI ULLOA on 12/14/17 at 0842. The patient is: ([X]): Stable for discharge (): To be admitted to Nursing Floor (): To be placed in Observation on Nursing Floor (): For transfer to other facility The patient was being observed for [UTI and alcohol intoxication] As a result of that observation, I have determined [patient is stable for discharge.]. (José Miguel Macias MD)
[2017-12-13 21:40] LABS: ABSOLUTE BASOPHIL COUNT 0 /CUMM (0.0-0.2); ABSOLUTE EOSINOPHIL COUNT 0.2 /CUMM (0.0-0.7); ABSOLUTE GRANULOCYTE CT 6.8 /CUMM (1.4-6.5); ABSOLUTE LYMPH COUNT 1.9 /CUMM (1.2-3.4); BASOPHIL % 0.4 % (0.0-2.0); EOSINOPHIL % 1.9 % (0-5); GRANULOCYTE % 68.2 % (42.2-75.2); HEMATOCRIT 40.3 % (42-52); MEAN CORPUSCULAR HGB 30.9 PG (27.0-31.0); MEAN CORPUSCULAR HGB CONC 33.4 G/DL (33.0-37.0); MEAN CORPUSCULAR VOLUME 92.6 FL (80.0-94.0); MEAN PLATELET VOLUME 7.5 FL (7.4-10.4); PLATELET COUNT 411 /CUMM (130-400); RBC DISTRIBUTION WIDTH 18.3 % (11.5-14.5); RED BLOOD CELL CT 4.35 /CUMM (4.70-6.10); WHITE BLOOD CELL COUNT 9.9 /CUMM (4.8-10.8)
--- NOTE | 2017-12-13 23:13 | CT SCAN REPORT ---
EXAMINATION: CT HEAD WITHOUT CONTRAST CLINICAL INFORMATION: Altered mental status. COMPARISON: CT head 11/26/2017 TECHNIQUE: Contiguous axial imaging was performed from the skull base to vertex without intravenous administration of contrast. DLP: 616.38 mGy-cm FINDINGS: There is no evidence of acute intracranial hemorrhage or territorial infarction. No abnormal mass effect or midline shift is seen. Sánchez to white matter differentiation is well preserved. No extra-axial fluid collections are identified. There is atrophy with prominence of the ventricles and the sulci and hypodensity of the periventricular white matter due to chronic small vessel ischemic disease. There is vascular calcifications of the internal carotid arteries bilaterally. The osseous structures and soft tissues are normal. The mastoid air cells and visualized portions of the paranasal sinuses are well aerated. IMPRESSION: No acute intracranial pathology.
--- NOTE | 2017-12-13 23:19 | RADIOLOGY REPORT ---
EXAMINATION: XR PORTABLE CHEST CLINICAL INFORMATION: Altered mental status. Vomiting. COMPARISON: Chest x-ray 11/18/2017 TECHNIQUE: Portable frontal view of the chest was obtained. 10:53 PM FINDINGS: Lungs are clear. No pulmonary vascular congestion. There is no pleural effusion. The heart size is normal. The cardiac and mediastinal contours are normal. There are multilevel degenerative changes of dorsal spine. IMPRESSION: Unremarkable examination.
[2017-12-14] MEDS ORDERED: BACTRIM DS TAB1 EACH PO (08:43)
[2017-12-14 09:31] VITALS: BP 144/65
== END 2017-12-14 09:52 ==
LOC: ERH 20:41 → ERHI 12-14 00:02
PROVIDERS: Physician Assistant
DX: N17.9 Acute kidney failure, unspecified (principal); F10.229 Alcohol dependence with intoxication, unspecified; N39.0 Urinary tract infection, site not specified; R11.2 Nausea with vomiting, unspecified; I10 Essential (primary) hypertension; Z79.899 Other long term (current) drug therapy
CPT/HCPCS: 1263; 6090; 71045; 80307; 81001; 93005; 93010; 96374; 96375; 96376; G0378; G0480; J0696; J2405; J2550